=== PATIENT | female | born 1930 | race Caucasian/White ===

== ENCOUNTER 2016-04-18 17:15 | Inpatient (IN) | payer MEDICARE, OTHER ==
[2016-04-18] VITALS (8 sets, daily range): BP systolic 83–143; BP diastolic 46–61; PULSE 69–147; RESP 12–25; Ht 162.6 cm; Wt 82.8 kg
[~2016-04-18] VITALS: Ht 162.6 cm; Wt 82.8 kg
[~2016-04-18 17:15] MED LIST: ASPI-664 PO; ATOR20TA38 PO; CARV6.25 PO; CELE200C PO; CLOP75TA27 PO; DEXL60CA2 PO; DIGO125T PO; EZET10TA3 PO; LIPA1CAP6 PO; MECL-77 PO; MEMA28CA PO; METF-382 PO; OLME1TAB20 PO; ROSU40TA PO; SITA50TA2 PO; VALS80TA2 PO; ZOLP10TA PO
[2016-04-18] MEDS ORDERED: MAGNESIUM HYDROXIDE 30ML CUP PO PRN (18:00)
[2016-04-18] MEDS ORDERED: LOPERAMIDE 2 MG CAP PO PRN (18:00)
[2016-04-18] MEDS ORDERED: BISACODYL 10 MG SUPP PR PRN (18:00)
[2016-04-18] MEDS ORDERED: LORAZEPAM 1 MG TAB PO PRN (18:00)
[2016-04-18] MEDS ORDERED: LACTULOSE 30ML CUP PO PRN (18:00)
[2016-04-18] MEDS ORDERED: GLUCOSE GEL 15 GRAM TUBE BUCCAL PRN (18:30)
[2016-04-18] MEDS ORDERED: DEXTROSE 50% 50 ML SYRINGE IV PRN ×2 (18:30)
[2016-04-18] MEDS ORDERED: GLUCAGON 1 MG INJ IM PRN (18:30)
[2016-04-18] MEDS ORDERED: GLUCOSE GEL 15 GRAM TUBE PO PRN ×2 (18:30)
--- NOTE | 2016-04-18 19:54 | PDOCDIS ---
Discharge Instructions CONDITION Patient Condition: Serious HOME CARE INSTRUCTIONS: Diet Instructions: Reduced Sodium ACTIVITY: Activity Restrictions: Rest between Activity Bathing Restrictions: Sponge Bath FOLLOW UP/APPOINTMENTS Appointments Admit to ICU. REFERRALS Other Referrals . SCHOOL/WORK RELEASE May return to School/Work on: Apr 19, 2016 May return to School/Work with: no relevant meaning in a comp. statement. No school. VANI DALAL MD Apr 18, 2016 19:54
[2016-04-18] MEDS ORDERED: ZOLP5TAB PO (20:12)
[2016-04-18] MEDS ORDERED: LACT20SO12 PO (20:12)
[2016-04-18] MEDS ORDERED: LINA5TAB PO (20:12)
[2016-04-18] MEDS ORDERED: ATOR40TA68 PO (20:12)
[2016-04-18] MEDS ORDERED: LOSA50TA2 PO (20:12)
[2016-04-18] MEDS ORDERED: UDMOM PO (20:12)
[2016-04-18] MEDS ORDERED: METF500T PO (20:12)
[2016-04-18] MEDS ORDERED: HYD25 PO (20:12)
[2016-04-18] MEDS ORDERED: LORA-441 PO (20:12)
[2016-04-18] MEDS ORDERED: LORA1TAB PO (20:12)
[2016-04-18] MEDS ORDERED: GLUC1VIA3 IM (20:12)
[2016-04-18] MEDS ORDERED: Accucheck XX (20:12)
[2016-04-18] MEDS ORDERED: CARV12.579 PO (20:12)
[2016-04-18] MEDS ORDERED: DEXT37.54 BUCCAL (20:12)
[2016-04-18] MEDS ORDERED: Nursing Note XX (20:12)
[2016-04-18] MEDS ORDERED: DEXT37.54 PO (20:12)
[2016-04-18] MEDS ORDERED: SOLI5TAB5 PO (20:12)
[2016-04-18] MEDS ORDERED: CLON-379 PO (20:12)
[2016-04-18] MEDS ORDERED: [UNRECOGNIZED DRUG - CODE] IM (20:12)
[2016-04-18] MEDS ORDERED: DULR PR (20:12)
[2016-04-18] MEDS ORDERED: MEMA10TA20 PO (20:12)
[2016-04-18] MEDS ORDERED: APR50 PO (20:12)
[2016-04-18] MEDS ORDERED: NOVO3I SC (20:12)
[2016-04-18] MEDS ORDERED: AMLO-147 NGT (20:12)
[2016-04-18] MEDS ORDERED: PANT40TA4 PO (20:12)
[2016-04-18] MEDS ORDERED: ACET325T33 PO (20:12)
[2016-04-18] MEDS ORDERED: CATTTS1 TRANSDERM (20:12)
[2016-04-18] MEDS ORDERED: DEXT50DI9 IV (20:12)
[2016-04-18] MEDS ORDERED: CHOL20003 PO (20:12)
[2016-04-18] MEDS ORDERED: DONE10TA33 PO (20:12)
[2016-04-18] MEDS ORDERED: MECL-77 PO (20:12)
[2016-04-18] MEDS ORDERED: IMO2 PO (20:12)
--- NOTE | 2016-04-18 20:27 | HP ---
Date/Time of Note Date/Time of Note DATE: 04/18/16 TIME: 20:14 Assessment/Plan VTE Prophylaxis VTE Prophylaxis Intervention: ambulation, anti-embolic stocking VTE Contraindication Reason: peripheral vascular disease Lines/Catheters IV Catheter Type (from Nrsg): Saline Lock Central line still needed: No Urinary Cath still in place: No Assessment/Plan Chief Complaint/Hosp Course 1.Paroxismal a.fibrillation with rapid ventricular rate 2.HTN out of control- become hypotensive during a.fib. attack. 3.DM type 2 4.Dyslipidemia 5.AD - getting worse, with anxiety d/o 6.S/P hemicolectomy with appendectomy by HX due to of colonic cancer 7.Progressive weight loss (more than 40 lb in less than a year) 8.VDV;DVT? HX? 9.S/P cataractectomy bilateral 10.S/P falls and recent head trauma. 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 12.S/P PSVT converted to sinus rhythm by adenosine in [facility] [place]? 13.Hx of recurrent uti's 14.LEW and osteoporosis 15.Redness of t he skin of calcaneal areas. 16.Diarrhea due to of short bowel with other causes 17.Severe muscular weakness 18.Severe hearing impairment 19.Anemia of chronic disease 20.Low magnesium levels on and off 21.Low Vit "D" level 22.LVH with diastolic dysfunction. 23.Multiple bruises of extremities 24.Osteoporosis 25. S/P Fx of the right hip; s/p orif. 26.PAD 27.CVA with right weakness Problems: Assessment/Plan Will sta in ICU for 1 day at least and after full stabilization transfer to monitor bed. Cont'd Hospitalization Reason: unstable and needs further in housse w/u. HPI/ROS Admit Date/Time Admit Date/Time Dr. Dalal is dictating H&P. Chief complaint: shortness of breath and weakness. The patient was in rehabilitation unit when suddenly her blood pressure dropped. She felt dizzy. Rapid response team helped the patient. EKG had shown atrial fibrillation with rapid ventricular rate. Heart rate now is with occasional PVc 's. Transfer to ICU. Dr. Francisco was called. In the past the patient had episodes of supraventricular tachycardia. There is no record for her having ATRIAL fibrillation. Probably this is of onset .Apr 18, 2016 at 17:15 ROS Subjective hx not possible: pt critical Constitutional: diaphoresis, disoriented, nausea, poor po, weight change Eyes: visual change ENT: congestion, sore throat, No bleeding, No discharge, No dysphagia, No no complaints, No other, No pain Respiratory: shortness of breath, No cough, No no complaints, No other, No pain, No pleuritic pain, No sputum, No wheezing Cardiovascular: palpitations, No chest pain, No edema, No lightheadedness, No no complaints, No orthopenea , No other, No paroxysmal nocturnal dyspnea Gastrointestinal: diarrhea, nausea, passing stool, No blood, No constipation, No decreased appetite, No flatus, No no complaints , No other, No pain, No vomiting Genitourinary: flank pain, No bleeding, No discharge, No dysuria, No hematuria, No no complaints, No other Musculoskeletal: bone/joint pain, neck pain, No back pain, No no complaints, No other, No restricted range of motion, No swelling Skin: No bruising, No erythema, No laceration, No no complaints, No other, No pruritis, No rash, No skin lesions Neurologic: confusion, dizziness, No focal-weakness, No headache, No no complaints, No other, No seizure, No syncope Endocrine: dry skin Lymphatic: No adenopathy, No lymphadema, No no complaints, No other, No tender nodes Psychological: anxiety, confusion, other (impared memory.) Immunologic: pruritis PMH/Family/Social Past Medical History Medical History: cancer, congestive heart failure, diabetes, GERD, high cholesterol, hypertension, urinary tract infection Past Surgical History Past Surgical Hx: angioplasty, appendectomy, other Family History Significant Family History: heart disease, hypertension Social History Alcohol Use: none Smoking Status: Never smoker Drug Use: none Exam/Review of Systems Vital Signs Vitals Vital Signs Date Time Temp Pulse Resp B/P Pulse Ox O2 Delivery O2 Flow Rate FiO2 04/18/16 18:00 87 19 127/58 96 Nasal Cannula 3.0 04/18/16 17:15 98.0 Exam Constitutional: alert, distress, other (dioriented in time and place.), well developed, No frail, No non-verbal, No oriented Psych: anxiety, confusion, depression, No nl mood/affect, No no complaints, No other, No suicidal Eyes: EOMI, PERRL, nl lids, other (erythematouse conjunctivas.), No fundi, disc, No icteric, No nl conjunctiva, No nl sclera ENMT: nl external ears & nose, nl nasal mucosa & septum, No intubated, No mucosa pink and moist, No nl lips & teeth, No other, No tympanic membranes Neck: bruits, nuchal rigidity, No jvd, No masses, No non-tender, No other, No supple, No thyromegaly Respiratory: clear to auscultation, congested cough, diminished breath sounds, No crackles/rales, No intercostal retraction, No labored breathing, No normal air movement, No other, No respirations, No tactile fremitus, No wheezing Cardiovascular: bruits, other (vdv.), systolic murmur, No S3, No S4, No diastolic murmur, No edema, No gallop, No irregular rhythm, No jugular venous distention (JVD), No murmurs/extra sounds, No nl pulses, No regular rate and rhythm, No rub Gastrointestinal: bowel sounds, soft, No ascites, No distended, No firm, No hepatomegaly, No mass, No nl liver, spleen, No non-tender, No other, No rebound or guarding, No splenomegaly, No surgical scars, No tender Musculoskeletal: joint tenderness, muscle tone, muscle weakness Extremities: tenderness Neurological: PAPER TWISTER TENDER II-XII intact, numbness Skin: diaphoresis, rash or lesions Medications Medications Current Medications Diagnostic Test (Pha) (Accucheck) XX ; Start 04/19/16 at 02:00 Acetaminophen (Tylenol Tab) 325 mg Q4H PRN PO PAIN AND OR ELEVATED TEMP; Start 04/18/16 at 18:00 Amlodipine Besylate (Norvasc) 10 mg HS NGT ; Start 04/18/16 at 21:00 Aspirin (Aspirin) 81 mg DAILY PO ; Start 04/19/16 at 09:00 Atorvastatin Calcium (Lipitor) 40 mg HS PO ; Start 04/18/16 at 21:00 Bisacodyl (Dulcolax Supp) 10 mg DAILY PRN [place] CONSTIPATION; Start 04/18/16 at 18:00 Carvedilol (Coreg) 12.5 mg BID PO ; Start 04/18/16 at 21:00 Celecoxib (Celebrex) 200 mg DAILY PO ; Start 04/19/16 at 09:00 Cholecalciferol (Vitamin D) 2,000 unit DAILY PO ; Start 04/19/16 at 09:00 Clopidogrel Bisulfate (plaVIX) 75 mg DAILY PO ; Start 04/19/16 at 09:00 Cyanocobalamin (Vitamin B12 Inj) 1,000 mcg DAILY IM ; Start 04/19/16 at 09:00; Stop 04/21/16 at 11:00 Donepezil HCl (Aricept) 10 mg DAILY PO ; Start 04/19/16 at 09:00 Hydralazine HCl (Apresoline) 50 mg Q8 PO ; Start 04/18/16 at 22:00 Hydrochlorothiazide (Hydrochlorothiazide) 25 mg DAILY PO ; Start 04/19/16 at 09 :00 Lactulose (Enulose) 20 gm DAILY PRN PO CONSTIPATION; Start 04/18/16 at 18:00 Linagliptin (Tradjenta) 5 mg DAILY PO ; Start 04/19/16 at 09:00 Loperamide HCl (Imodium Cap) 2 mg QID PRN PO DIARRHEA; Start 04/18/16 at 18:00 Lorazepam (Ativan) 0.5 mg HS PO ; Start 04/18/16 at 21:00 Lorazepam (Ativan) 1 mg Q12 PRN PO AGITATION/ANXIETY; Start 04/18/16 at 18:00 Losartan Potassium (Cozaar) 100 mg DAILY PO ; Start 04/19/16 at 09:00 Magnesium Hydroxide 30 ml 30 ml DAILY PRN PO CONSTIPATION; Start 04/18/16 at 18:00 Magnesium Sulfate (Magnesium Sulfate 2 Gm/50 ml) 50 ml @ 25 mls/hr ONCE IVPB ; Start 04/19/16 at 09:00; Stop 04/20/16 at 11:00 Meclizine HCl (Antivert) 25 mg DAILY PO ; Start 04/19/16 at 09:00 Memantine (Namenda) 10 mg BID PO ; Start 04/18/16 at 21:00 Pantoprazole (Protonix Tab) 40 mg DAILY@06 PO ; Start 04/19/16 at 06:00 Sertraline HCl 25 mg 25 mg DAILY PO ; Start 04/19/16 at 09:00 Ferric Sodium Gluconate Complex/ Sodium Chloride (Ferrlecit/NS) 110 ml @ 110 mls/hr Q24H IVPB ; Start 04/19/16 at 09:00; Stop 04/21/16 at 09:59 Solifenacin (Vesicare) 5 mg DAILY PO ; Start 04/19/16 at 09:00 Zolpidem Tartrate (Ambien) 5 mg HS PO ; Start 04/18/16 at 21:00 Miscellaneous Information 1 ea NOTE XX ; Start 04/18/16 at 18:30 Glucose (Glutose) 15 gm Q15M PRN PO DECREASED GLUCOSE; Start 04/18/16 at 18:30 Glucose (Glutose) 22.5 gm Q15M PRN PO DECREASED GLUCOSE; Start 04/18/16 at 18: 30 Dextrose (D50w Syringe) 25 ml Q15M PRN IV DECREASED GLUCOSE; Start 04/18/16 at 18:30 Dextrose (D50w Syringe) 50 ml Q15M PRN IV DECREASED GLUCOSE; Start 04/18/16 at 18:30 Glucagon (Glucagen) 1 mg Q15M PRN IM DECREASED GLUCOSE; Start 04/18/16 at 18: 30 Glucose (Glutose) 15 gm Q15M PRN BUCCAL DECREASED GLUCOSE; Start 04/18/16 at 18:30 Clonidine HCl (Catapres-Tts 1 Patch) 1 patch Q7D TRANSDERM ; Start 04/22/16 at 09:00 Clonidine (Catapres) 0.1 mg Q8H PRN PO ELEVATED SYSTOLIC BP>150; Start at 18:30 VANI DALAL MD Apr 18, 2016 20:24
[2016-04-18] MEDS: AMLODIPINE 10 MG TAB NGT SCH (21:00)
[2016-04-18] MEDS: ATORVASTATIN 40 MG TAB PO SCH (21:44)
[2016-04-18] MEDS: LORAZEPAM 0.5 MG TAB PO SCH (21:44)
[2016-04-18] MEDS: MEMANTINE 10 MG TAB PO SCH (21:44)
[2016-04-18] MEDS: ZOLPIDEM 5 MG TAB PO SCH (21:44)
[2016-04-18] MEDS: INSULIN ASPART [NOVOLOG] 3 ML PEN SC SCH (21:46)
[2016-04-19] VITALS (22 sets, daily range): BP systolic 96–163; BP diastolic 46–94; PULSE 58–83; RESP 9–21
[2016-04-19] MEDS ORDERED: ACCUCHECK XX SCH (02:00)
[2016-04-19] MEDS: ACCUCHECK XX SCH (02:06)
[2016-04-19] MEDS: PANTOPRAZOLE (EC) 40 MG TAB PO SCH (05:21)
[2016-04-19] MEDS: INSULIN ASPART [NOVOLOG] 3 ML PEN SC SCH ×4 (07:35→22:19)
[2016-04-19] MEDS: CELECOXIB 200 MG CAP PO SCH (08:59)
[2016-04-19] MEDS: CHOLECALCIFEROL 2,000 UNIT CAP PO SCH (08:59)
[2016-04-19] MEDS: CLOPIDOGREL 75 MG TAB PO SCH (08:59)
[2016-04-19] MEDS: DONEPEZIL 10 MG TAB PO SCH (08:59)
[2016-04-19] MEDS: MECLIZINE 25 MG TAB PO SCH (08:59)
[2016-04-19] MEDS: MEMANTINE 10 MG TAB PO SCH ×2 (08:59→22:15)
[2016-04-19] MEDS: metFORMIN 500 MG TAB PO SCH ×2 (09:00→17:35)
[2016-04-19] MEDS: LOSARTAN 50 MG TAB PO SCH ×2 (09:00→09:02)
[2016-04-19] MEDS: ASPIRIN 81 MG TAB PO SCH (09:00)
[2016-04-19] MEDS ORDERED: MAGNESIUM SULFATE 2 GM/50 ML 50 ML IVPB SCH (09:00)
[2016-04-19] MEDS: LINAGLIPTIN 5 MG TABLET PO SCH (09:00)
[2016-04-19] MEDS: CYANOCOBALAMIN 1000 MCG INJ IM SCH (09:01)
[2016-04-19] MEDS: HYDROCHLOROTHIAZIDE 25 MG TAB PO SCH (09:01)
[2016-04-19] MEDS: SOD FERRIC GLUC COMPLX 125 MG in SOD CHLORIDE 0.9% 100 ML IVPB SCH (09:06)
[2016-04-19] MEDS: SOLIFENACIN 5 MG TAB PO SCH (11:17)
[2016-04-19] MEDS: SERTRALINE 50 MG TAB PO SCH (11:20)
--- NOTE | 2016-04-19 14:38 | PN ---
Date/Time of Note Date/Time of Note DATE: 04/19/16 TIME: 14:38 Assessment/Plan VTE Prophylaxis VTE Prophylaxis Intervention: ambulation, anti-embolic stocking VTE Contraindication Reason: peripheral vascular disease Lines/Catheters IV Catheter Type (from Nrsg): Saline Lock Central line still needed: No Urinary Cath still in place: Yes Reason Cath still needed: urinary retention Assessment/Plan Chief Complaint/Hosp Course 1.Paroxismal a.fibrillation with rapid ventricular rate 2.HTN out of control- become hypotensive during a.fib. attack. 3.DM type 2 4.Dyslipidemia 5.AD - getting worse, with anxiety d/o 6.S/P hemicolectomy with appendectomy by HX due to of colonic cancer 7.Progressive weight loss (more than 40 lb in less than a year) 8.VDV;DVT? HX? 9.S/P cataractectomy bilateral 10.S/P falls and recent head trauma. 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 12.S/P PSVT converted to sinus rhythm [place] [facility] [place] 13.Hx of recurrent uti's 14.LEW and osteoporosis 15.Redness of t he skin of calcaneal areas. 16.Diarrhea due to of short bowel with other causes 17.Severe muscular weakness 18.Severe hearing impairment 19.Anemia of chronic disease 20.Low magnesium levels on and off 21.Low Vit "D" level 22.LVH with diastolic dysfunction. 23.Multiple bruises of extremities 24.Osteoporosis 25. S/P Fx of the right hip; s/p orif. 26.PAD 27.CVA with right weakness Problems: Subjective 24 Hr Interval Summary Free Text/Dictation Weakness with SOB. Exam/Review of Systems Vital Signs Vitals Vital Signs Date Time Temp Pulse Resp B/P Pulse Ox O2 Delivery O2 Flow Rate FiO2 04/19/16 13:00 66 18 127/55 94 04/19/16 12:00 98.4 04/19/16 08:00 Nasal Cannula 2.0 Intake and Output 04/18/16 04/18/16 04/19/16 14:59 22:59 06:59 Intake Total 400 ml Output Total 1200 ml Balance -800 ml Results Results 24 hrs Laboratory Tests Test 04/19/16 05:05 04/19/16 08:10 12/24/16 11:54 Bedside Glucose 151 130 151 Medications Medications Current Medications Diagnostic Test (Pha) (Accucheck) 1 ea 02 XX Last administered on 04/19/16at 02 :06; Admin Dose 1 EA; Start 04/19/16 at 02:00 Acetaminophen (Tylenol Tab) 325 mg Q4H PRN PO PAIN AND OR ELEVATED TEMP; Start 04/18/16 at 18:00 Amlodipine Besylate (Norvasc) 10 mg HS NGT ; Start 04/18/16 at 21:00 Aspirin (Aspirin) 81 mg DAILY PO Last administered on 04/19/16at 09:00; Admin Dose 81 MG; Start 04/19/16 at 09:00 Atorvastatin Calcium (Lipitor) 40 mg HS PO Last administered on 04/18/16 21: 44; Admin Dose 40 MG; Start 04/18/16 at 21:00 Bisacodyl (Dulcolax Supp) 10 mg DAILY PRN [place] CONSTIPATION; Start 04/18/16 at 18:00 Carvedilol (Coreg) 12.5 mg BID PO Last administered on 04/19/16 09:01; Admin Dose 12.5 MG; Start 04/18/16 at 21:00 Celecoxib (Celebrex) 200 mg DAILY PO Last administered on 04/19/16 08:59; Admin Dose 200 MG; Start 04/19/16 at 09:00 Cholecalciferol (Vitamin D) 2,000 unit DAILY PO Last administered on 08:59; Admin Dose 2,000 UNIT; Start 04/19/16 at 09:00 Clopidogrel Bisulfate (plaVIX) 75 mg DAILY PO Last administered on 04/19/16 08:59; Admin Dose 75 MG; Start 04/19/16 at 09:00 Cyanocobalamin (Vitamin B12 Inj) 1,000 mcg DAILY IM Last administered on 09:01; Admin Dose 1,000 MCG; Start 04/19/16 at 09:00; Stop 04/21/16 at 11 :00 Donepezil HCl (Aricept) 10 mg DAILY PO Last administered on 04/19/16 08:59; Admin Dose 10 MG; Start 04/19/16 at 09:00 Hydralazine HCl (Apresoline) 50 mg Q8 PO Last administered on 04/19/16 05:21 ; Admin Dose 50 MG; Start 04/18/16 at 22:00 Hydrochlorothiazide (Hydrochlorothiazide) 25 mg DAILY PO Last administered on 04/19/16at 09:01; Admin Dose 25 MG; Start 04/19/16 at 09:00 Lactulose (Enulose) 20 gm DAILY PRN PO CONSTIPATION; Start 04/18/16 at 18:00 Linagliptin (Tradjenta) 5 mg DAILY PO Last administered on 04/19/16at 09:00; Admin Dose 5 MG; Start 04/19/16 at 09:00 Loperamide HCl (Imodium Cap) 2 mg QID PRN PO DIARRHEA; Start 04/18/16 at 18:00 Lorazepam (Ativan) 0.5 mg HS PO Last administered on 04/18/16at 21:44; Admin Dose 0.5 MG; Start 04/18/16 at 21:00 Lorazepam (Ativan) 1 mg Q12 PRN PO AGITATION/ANXIETY; Start 04/18/16 at 18:00 Losartan Potassium (Cozaar) 100 mg DAILY PO ; Start 04/19/16 at 09:00 Magnesium Hydroxide 30 ml 30 ml DAILY PRN PO CONSTIPATION; Start 04/18/16 at 18:00 Magnesium Sulfate (Magnesium Sulfate 2 Gm/50 ml) 50 ml @ 25 mls/hr ONCE IVPB Last administered on 04/19/16at 11:17; Admin Dose 25 MLS/HR; Start 04/19/16 at 09:00; Stop 04/20/16 at 11:00 Meclizine HCl (Antivert) 25 mg DAILY PO Last administered on 04/19/16at 08:59; Admin Dose 25 MG; Start 04/19/16 at 09:00 Memantine (Namenda) 10 mg BID PO Last administered on 04/19/16at 08:59; Admin Dose 10 MG; Start 04/18/16 at 21:00 Pantoprazole (Protonix Tab) 40 mg DAILY@06 PO Last administered on 04/19/16at 05:21; Admin Dose 40 MG; Start 04/19/16 at 06:00 Sertraline HCl 25 mg 25 mg DAILY PO Last administered on 04/19/16at 11:20; Admin Dose 25 MG; Start 04/19/16 at 09:00 Ferric Sodium Gluconate Complex/ Sodium Chloride (Ferrlecit/NS) 110 ml @ 110 mls/hr Q24H IVPB Last administered on 04/19/16at 09:06; Admin Dose 110 MLS/HR; Start 04/19/16 at 09:00; Stop 04/21/16 at 09:59 Solifenacin (Vesicare) 5 mg DAILY PO Last administered on 04/19/16at 11:17; Admin Dose 5 MG; Start 04/19/16 at 09:00 Zolpidem Tartrate (Ambien) 5 mg HS PO Last administered on 04/18/16at 21:44; Admin Dose 5 MG; Start 04/18/16 at 21:00 Miscellaneous Information 1 ea NOTE XX ; Start 04/18/16 at 18:30 Glucose (Glutose) 15 gm Q15M PRN PO DECREASED GLUCOSE; Start 04/18/16 at 18:30 Glucose (Glutose) 22.5 gm Q15M PRN PO DECREASED GLUCOSE; Start 04/18/16 at 18: 30 Dextrose (D50w Syringe) 25 ml Q15M PRN IV DECREASED GLUCOSE; Start 04/18/16 at 18:30 Dextrose (D50w Syringe) 50 ml Q15M PRN IV DECREASED GLUCOSE; Start 04/18/16 at 18:30 Glucagon (Glucagen) 1 mg Q15M PRN IM DECREASED GLUCOSE; Start 04/18/16 at 18: 30 Glucose (Glutose) 15 gm Q15M PRN BUCCAL DECREASED GLUCOSE; Start 04/18/16 at 18:30 Clonidine HCl (Catapres-Tts 1 Patch) 1 patch Q7D TRANSDERM ; Start 04/22/16 at 09:00 Clonidine (Catapres) 0.1 mg Q8H PRN PO ELEVATED SYSTOLIC BP>150; Start at 18:30 VANI DALAL MD Apr 19, 2016 14:38
[2016-04-19] MEDS: ZOLPIDEM 5 MG TAB PO SCH (21:26)
[2016-04-19] MEDS: LORAZEPAM 0.5 MG TAB PO SCH (21:27)
[2016-04-19] MEDS: ATORVASTATIN 40 MG TAB PO SCH (21:27)
[2016-04-19] MEDS: AMLODIPINE 10 MG TAB NGT SCH (21:29)
[2016-04-19] MEDS: ACETAMINOPHEN 325 MG TAB PO PRN (22:49)
[2016-04-20] VITALS (12 sets, daily range): BP systolic 119–144; BP diastolic 58–66; PULSE 66–82; RESP 16–20
[2016-04-20] MEDS: ACCUCHECK XX SCH (01:27)
--- NOTE | 2016-04-20 03:25 | CONS ---
DATE OF ADMISSION: 04/18/2016 DATE OF CONSULTATION: REFERRING PHYSICIAN: Dr. Panchito Hernandez Thank you, Dr. Flanagan, for asking me to see the patient with you. HISTORY OF PRESENT ILLNESS: The patient is an 85-year-old lady with a past medical history of conge stive heart failure, diabetes, hyperpotassemia, hypertension, urinary tract infection, diabetes, ang ioplasty, appendectomy. The patient was admitted with chief complaint of shortness of breath, weakn ess increasing in her left side with lack of communication with atrial fibrillation with rapid respo nse for which the patient was admitted to intensive care unit, seen by Dr. Francisco, in which I got a call about her by Dr. Flanagan for more evaluation and treatment. MEDICATIONS: The patient's current medications which include 1. Clonidine patch every 7 days as needed. 2. Aspirin 81 mg once a day. 3. Celebrex 200 mg once a day. 4. Vitamin D as needed. 5. Plavix 75 mg once a day. 6. Aricept 10 mg once a day. 7. Hydrochlorothiazide 25 mg once a day. 8. Cozaar 100 mg once a day. 9. Antivert 25 mg once a day. 10. Zoloft 25 mg once a day. 11. Glucophage 1000 twice a day as needed. 12. Protonix 40 mg once a day as needed. 13. Insulin sliding scale. 14. Norvasc 10 mg once a day. 15. Lipitor 40 mg once a day. 16. Coreg 12.5 mg once a day. 17. Lorazepam 0.5 mg once a day. 14. Namenda 10 mg twice a day. 15. Ambien 5 mg once at night. 16. Dulcolax 10 mg as needed. 17. Lactulose 20 mg as needed. 18. Magnesium hydroxide 30 mg as needed. PAST MEDICAL HISTORY: As above, which includes hypertension, atrial fibrillation, congestive heart failure, diabetes, dyslipidemia, anemia memory disorder, Alzheimer disease, anxiety secondary to the Alzheimer, hearing difficulty. PHYSICAL EXAMINATION: GENERAL: On exam today, the patient is alert, awake, oriented, following simple commands. CRANIAL NERVES: Cranial nerve II: Pupils equal on both sides, reactive to light. Cranial nerves I II, IV, and : Extraocular muscles intact. No nystagmus. Cranial nerve V: Equal sensation to fa ce. Cranial nerve VII: Symmetrical face. Cranial nerve VIII: Equal hearing bilaterally. Cranial nerves IX and X: Elevates palate. Cranial nerves XI: Elevates shoulder 5/5. Cranial nerve XII: Straight tongue. MOTOR: Decreased right hand commercial agent. Left side scored 3 at the lower extremity, 4 at the upper extrem ity. Sensation decreased on the right side for light touch and temperature. COORDINATION: Xaxott-ls-[id number] test intact. HEART: Regular rate and rhythm. LUNGS: Equal breath sounds. ABDOMEN: Soft, relaxed, nondistended. No tenderness. ASSESSMENT AND PLAN 1. The patient is an 85-year-old with left-sided weakness. We will follow up the patient with phys ical therapy and rehabilitation. 2. of possibility of underlying transient ischemic versus cerebrovascular accident. I am nura ely to add for her Plavix 75 mg once a day besides the aspirin for stroke prophylaxis because the pat ient has multiple risk factors including hypertension, diabetes, and dyslipidemia. The patient curr ently is on sinus rhythm, so no need for anticoagulation at this point; however, we can watch her cl osely for more evaluation with echocardiogram and cardiology consult. 3. History of underlying memory disorder in the form of Alzheimer disease. We will start the patie nt on Aricept 5 mg and see how the patient responds for that and follow up the patient with mini men ricardo status exam and neuropsychological testing. 4. History of hypertension. Keep the blood pressure at the level of 140/90 or less to avoid any __ ___ for stroke. 5. History of diabetes. Follow up the patient's hemoglobin A1c. Follow up the patient with slidin g scale insulin. Again, thank you for asking me to see the patient with you. Dictated By: ASHLEY MOORE/BANDAR Conf#: [id number] DID#: [id number]
[2016-04-20] MEDS: PANTOPRAZOLE (EC) 40 MG TAB PO SCH (05:52)
[2016-04-20] MEDS: INSULIN ASPART [NOVOLOG] 3 ML PEN SC SCH ×4 (08:00→20:41)
[2016-04-20] MEDS: CLOPIDOGREL 75 MG TAB PO SCH (08:55)
[2016-04-20] MEDS: CELECOXIB 200 MG CAP PO SCH (08:55)
[2016-04-20] MEDS: SERTRALINE 50 MG TAB PO SCH (08:55)
[2016-04-20] MEDS: ASPIRIN 81 MG TAB PO SCH (08:56)
[2016-04-20] MEDS: HYDROCHLOROTHIAZIDE 25 MG TAB PO SCH (08:56)
[2016-04-20] MEDS: metFORMIN 500 MG TAB PO SCH ×2 (08:56→17:00)
[2016-04-20] MEDS: SOLIFENACIN 5 MG TAB PO SCH (08:57)
[2016-04-20] MEDS: SOD FERRIC GLUC COMPLX 125 MG in SOD CHLORIDE 0.9% 100 ML IVPB SCH (08:57)
[2016-04-20] MEDS: MEMANTINE 10 MG TAB PO SCH ×2 (08:57→20:42)
[2016-04-20] MEDS ORDERED: CLOPIDOGREL 75 MG TAB PO SCH ×2 (09:00)
[2016-04-20] MEDS: CHOLECALCIFEROL 2,000 UNIT CAP PO SCH (09:59)
[2016-04-20] MEDS: DONEPEZIL 10 MG TAB PO SCH (09:59)
[2016-04-20] MEDS: LINAGLIPTIN 5 MG TABLET PO SCH (09:59)
[2016-04-20] MEDS: MECLIZINE 25 MG TAB PO SCH (09:59)
[2016-04-20] MEDS: CYANOCOBALAMIN 1000 MCG INJ IM SCH (09:59)
--- NOTE | 2016-04-20 10:19 | RADRPT ---
PROCEDURE: MRI Brain without contrast. CLINICAL INDICATION: CVA. TECHNIQUE: An MRI of the brain was performed utilizing the following sequences: Sagittal and axial T1 weighted, axial T2 weighted, axial diffusion weighted with ADC mapping, coronal GRE, and axial F LAIR. COMPARISON: None available. FINDINGS: There are foci of restricted diffusion in the left centrum semiovale and connor radiata consistent w ith acute/recent infarcts. No hypointense signal abnormalities are seen on the GRE images to suggest the presence of blood degr adation products. There is no evidence of intracranial hemorrhage, mass effect, or midline shift. N o extra-axial fluid collections are seen. The ventricles and sulci are mildly to moderately enlarged indicative of volume loss. There are moderate scattered foci of T2 FLAIR hyperintensity in the periventricular, deep, and subco rtical white matter, which are nonspecific in etiology but likely reflect chronic small vessel ische emmy changes. Small T2 hyperintense foci are noted in bilateral lentiform nuclei which likely repre sent dilated perivascular spaces versus old lacunar infarcts. Small lacunar infarcts are noted in bi lateral central semiovale and right parietal periventricular white matter. No abnormal intracranial vascular flow void is noted. The visualized paranasal sinuses demonstrate s cattered mild mucosal thickening. There are mucous retention cysts in bilateral maxillary sinuses. There is thinning of bilateral lens indicative of prior lens replacement. IMPRESSION: 1. Foci of acute/recent infarcts in the left centrum semiovale and connor radiata. No hemorrhagic t ransformation. 2. Moderate chronic small vessel ischemic changes. 3. Bilateral lentiform nuclei which likely represent dilated perivascular spaces versus old lacunar infarcts. Small lacunar infarcts in bilateral central semiovale and right parietal periventricular white matter. 4. Mild to moderate generalized cerebral and cerebellar volume loss. Critical result,A call report was made and above findings were discussed and acknowledged by patient 's nurse NAYELY King on 04/20/2016 at 10:10 AM to relay to Dr. Fu. RPTAT: HH .Lizet Gordon MD, MD Date Time Electronically viewed and signed by .Lizet Gordon MD, on 04/20/2016 10:19 .N/
--- NOTE | 2016-04-20 12:03 | RADRPT ---
Vent Rate: 74 bpm RR Interval: 0 msec IA Interval: 152 msec QRS Duration: 116 msec QT Interval: 416 msec QTC Interval: 461 msec P-R-T [place]: 59 - 16 - 124 degrees Normal sinus rhythm Incomplete left bundle branch block ST amp; T wave abnormality, consider lateral ischemia Abnormal ECG Electronically Signed By: Danny Duarte [id number]
--- NOTE | 2016-04-20 13:07 | CONS ---
Date/Time of Note Date/Time of Note DATE: 04/20/16 TIME: 13:02 Assessment/Plan Assessment/Plan Chief Complaint/Hosp Course Acute stroke Atrial fib LVH Hypertension Hyperlipidemia The pt will need to stop the Plavix and start Eliquis 2.5mg po bid and continue the Aspirin. Problems: Additional Assessment/Plan as mentioned above Will stop the plavix and start eliquis and cont ASA Will need to have daily physical therapy OK to transfer to rehab today. Consultation Date/Type/Reason Admit Date/Time Dr. Flanagan is dictating H&P. Chief complaint: shortness of breath and weakness. The patient was in rehabilitation unit when suddenly her blood pressure dropped. She felt dizzy. Rapid response team helped the patient. EKG had shown atrial fibrillation with rapid ventricular rate. Heart rate now is with occasional PVc 's. Transfer to ICU. Dr. Francisco was called. In the past the patient had episodes of supraventricular tachycardia. There is no record for her having ATRIAL fibrillation. Probably this is of onset .Apr 18, 2016 at 17:15 Reason for Consultation atrial fib and pvc's Hx of Present Illness This is a 85 F with multiple PMH, presented with an acute stroke. The pt has a history of parox Atrial Fib. Currently in Sinus with PVCs. The pt is moving all extremities I spoke with Dr. Flanagan Eyes: visual change ENT: congestion, sore throat, No bleeding, No discharge, No dysphagia, No no complaints, No other, No pain Respiratory: shortness of breath, No cough, No no complaints, No other, No pain, No pleuritic pain, No sputum, No wheezing Cardiovascular: palpitations, No chest pain, No edema, No lightheadedness, No no complaints, No orthopenea , No other, No paroxysmal nocturnal dyspnea Gastrointestinal: diarrhea, nausea, passing stool, No blood, No constipation, No decreased appetite, No flatus, No no complaints , No other, No pain, No vomiting Genitourinary: flank pain, No bleeding, No discharge, No dysuria, No hematuria, No no complaints, No other Musculoskeletal: bone/joint pain, neck pain, No back pain, No no complaints, No other, No restricted range of motion, No swelling Skin: No bruising, No erythema, No laceration, No no complaints, No other, No pruritis, No rash, No skin lesions Neurologic: confusion, dizziness, No focal-weakness, No headache, No no complaints, No other, No seizure, No syncope Lymphatic: No adenopathy, No lymphadema, No no complaints, No other, No tender nodes Psychological: anxiety, confusion, depression, No nl mood/affect, No no complaints, No other, No suicidal Immunologic: pruritis Past Medical History Medical History: cancer, congestive heart failure, diabetes, GERD, high cholesterol, hypertension, urinary tract infection Past Surgical History Past Surgical Hx: angioplasty, appendectomy, other Social History Alcohol Use: none Smoking Status: Never smoker Drug Use: none Exam/Review of Systems Vital Signs Vitals Vital Signs Date Time Temp Pulse Resp B/P Pulse Ox O2 Delivery O2 Flow Rate FiO2 04/20/16 12:18 98.8 73 20 134/63 94 04/20/16 09:35 Nasal Cannula 2.0 Intake and Output 04/19/16 04/19/16 04/20/16 15:00 23:00 07:00 Intake Total 360 ml 220 ml 800 ml Output Total 545 ml 270 ml 1000 ml Balance -185 ml -50 ml -200 ml Exam Constitutional: alert, oriented Results Result Diagram: 04/20/16 0530 Results 24 hrs Laboratory Tests Test 04/19/16 16:52 04/19/16 21:24 04/20/16 01:27 04/20/16 05:30 Bedside Glucose 129 192 143 Creatinine 1.15 H Test 04/20/16 07:46 04/20/16 11:34 Bedside Glucose 133 188 Medications Medications Current Medications Diagnostic Test (Pha) (Accucheck) 1 ea 02 XX Last administered on 04/20/16at 01 :27; Admin Dose 1 EA; Start 04/19/16 at 02:00 Acetaminophen (Tylenol Tab) 325 mg Q4H PRN PO PAIN AND OR ELEVATED TEMP Last administered on 04/19/16at 22:49; Admin Dose 325 MG; Start 04/18/16 at 18:00 Amlodipine Besylate (Norvasc) 10 mg HS NGT Last administered on 04/19/16at 21: 29; Admin Dose 10 MG; Start 04/18/16 at 21:00 Aspirin (Aspirin) 81 mg DAILY PO Last administered on 04/20/16at 08:56; Admin Dose 81 MG; Start 04/19/16 at 09:00 Atorvastatin Calcium (Lipitor) 40 mg HS PO Last administered on 04/19/16at 21: 27; Admin Dose 40 MG; Start 04/18/16 at 21:00 Bisacodyl (Dulcolax Supp) 10 mg DAILY PRN [place] CONSTIPATION; Start 04/18/16 at 18:00 Carvedilol (Coreg) 12.5 mg BID PO Last administered on 04/20/16 08:56; Admin Dose 12.5 MG; Start 04/18/16 at 21:00 Celecoxib (Celebrex) 200 mg DAILY PO Last administered on 04/20/16 08:55; Admin Dose 200 MG; Start 04/19/16 at 09:00 Cholecalciferol (Vitamin D) 2,000 unit DAILY PO Last administered on 09:59; Admin Dose 2,000 UNIT; Start 04/19/16 at 09:00 Clopidogrel Bisulfate (plaVIX) 75 mg DAILY PO Last administered on 04/20/16 08:55; Admin Dose 75 MG; Start 04/19/16 at 09:00 Cyanocobalamin (Vitamin B12 Inj) 1,000 mcg DAILY IM Last administered on 09:59; Admin Dose 1,000 MCG; Start 04/19/16 at 09:00; Stop 04/21/16 at 11 :00 Donepezil HCl (Aricept) 10 mg DAILY PO Last administered on 04/20/16 09:59; Admin Dose 10 MG; Start 04/19/16 at 09:00 Hydralazine HCl (Apresoline) 50 mg Q8 PO Last administered on 04/20/16 05:53 ; Admin Dose 50 MG; Start 04/18/16 at 22:00 Hydrochlorothiazide (Hydrochlorothiazide) 25 mg DAILY PO Last administered on 04/20/16 08:56; Admin Dose 25 MG; Start 04/19/16 at 09:00 Lactulose (Enulose) 20 gm DAILY PRN PO CONSTIPATION; Start 04/18/16 at 18:00 Linagliptin (Tradjenta) 5 mg DAILY PO Last administered on 04/20/16 09:59; Admin Dose 5 MG; Start 04/19/16 at 09:00 Loperamide HCl (Imodium Cap) 2 mg QID PRN PO DIARRHEA; Start 04/18/16 at 18:00 Lorazepam (Ativan) 0.5 mg HS PO Last administered on 04/19/16at 21:27; Admin Dose 0.5 MG; Start 04/18/16 at 21:00 Lorazepam (Ativan) 1 mg Q12 PRN PO AGITATION/ANXIETY; Start 04/18/16 at 18:00 Losartan Potassium (Cozaar) 100 mg DAILY PO ; Start 04/19/16 at 09:00 Magnesium Hydroxide (Milk Of Mag) 30 ml DAILY PRN PO CONSTIPATION; Start 04/18 at 18:00 Meclizine HCl (Antivert) 25 mg DAILY PO Last administered on 04/20/16at 09:59; Admin Dose 25 MG; Start 04/19/16 at 09:00 Memantine (Namenda) 10 mg BID PO Last administered on 04/20/16at 08:57; Admin Dose 10 MG; Start 04/18/16 at 21:00 Pantoprazole (Protonix Tab) 40 mg DAILY@06 PO Last administered on 04/20/16at 05:52; Admin Dose 40 MG; Start 04/19/16 at 06:00 Sertraline HCl 25 mg 25 mg DAILY PO Last administered on 04/20/16at 08:55; Admin Dose 25 MG; Start 04/19/16 at 09:00 Ferric Sodium Gluconate Complex/ Sodium Chloride (Ferrlecit/NS) 110 ml @ 110 mls/hr Q24H IVPB Last administered on 04/20/16at 08:57; Admin Dose 110 MLS/HR; Start 04/19/16 at 09:00; Stop 04/21/16 at 09:59 Solifenacin (Vesicare) 5 mg DAILY PO Last administered on 04/20/16at 08:57; Admin Dose 5 MG; Start 04/19/16 at 09:00 Zolpidem Tartrate (Ambien) 5 mg HS PO Last administered on 04/19/16at 21:26; Admin Dose 5 MG; Start 04/18/16 at 21:00 Miscellaneous Information 1 ea NOTE XX ; Start 04/18/16 at 18:30 Glucose (Glutose) 15 gm Q15M PRN PO DECREASED GLUCOSE; Start 04/18/16 at 18:30 Glucose (Glutose) 22.5 gm Q15M PRN PO DECREASED GLUCOSE; Start 04/18/16 at 18: 30 Dextrose (D50w Syringe) 25 ml Q15M PRN IV DECREASED GLUCOSE; Start 04/18/16 at 18:30 Dextrose (D50w Syringe) 50 ml Q15M PRN IV DECREASED GLUCOSE; Start 04/18/16 at 18:30 Glucagon (Glucagen) 1 mg Q15M PRN IM DECREASED GLUCOSE; Start 04/18/16 at 18: 30 Glucose (Glutose) 15 gm Q15M PRN BUCCAL DECREASED GLUCOSE; Start 04/18/16 at 18:30 Clonidine HCl (Catapres-Tts 1 Patch) 1 patch Q7D TRANSDERM ; Start 04/22/16 at 09:00 Clonidine (Catapres) 0.1 mg Q8H PRN PO ELEVATED SYSTOLIC BP>150; Start at 18:30 Clopidogrel Bisulfate (plaVIX) 75 mg DAILY PO ; Start 04/20/16 at 09:00 Influenza Virus Vaccine (Fluzone) 0.5 ml ONCE ONCE IM* ; Start 04/21/16 at 09: 00; Stop 04/21/16 at 09:01 TRAVIS REEVES MD Apr 20, 2016 13:07
[2016-04-20 14:40] LABS: ALBUMIN 3.9 g/dl (3.3-4.9)
[2016-04-20 14:41] LABS: POTASSIUM 4.1 mmol/L (3.5-5.1)
[2016-04-20 14:43] LABS: ALBUMIN/GLOBULIN RATIO 1.14; BILIRUBIN,INDIRECT 0.3 mg/dl (0-1.1); BILIRUBIN,TOTAL 0.3 mg/dl (0.2-1.3); CREATININE 1.26 mg/dl (0.44-1.00); TOTAL PROTEIN 7.3 g/dl (6.1-8.1)
[2016-04-20 14:44] LABS: CALCIUM 9.1 mg/dl (8.4-10.2)
--- NOTE | 2016-04-20 17:57 | PN ---
Date/Time of Note Date/Time of Note DATE: 04/20/16 TIME: 17:53 Assessment/Plan VTE Prophylaxis VTE Prophylaxis Intervention: ambulation, anti-embolic stocking Lines/Catheters IV Catheter Type (from Nrsg): [place] [employer] Central line still needed: No Urinary Cath still in place: Yes Reason Cath still needed: urinary retention Assessment/Plan Chief Complaint/Hosp Course 1.Paroxismal a.fibrillation with rapid ventricular rate 2.HTN out of control- become hypotensive during a.fib. attack. 3.DM type 2 4.Dyslipidemia 5.AD - getting worse, with anxiety d/o 6.S/P hemicolectomy with appendectomy by HX due to of colonic cancer 7.Progressive weight loss (more than 40 lb in less than a year) 8.VDV;DVT? HX? 9.S/P cataractectomy bilateral 10.S/P falls and recent head trauma. 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 12.S/P PSVT converted to sinus rhythm by adenosine in [facility] 2012? 13.Hx of recurrent uti's 14.LEW and osteoporosis 15.Redness of t he skin of calcaneal areas. 16.Diarrhea due to of short bowel with other causes 17.Severe muscular weakness 18.Severe hearing impairment 19.Anemia of chronic disease 20.Low magnesium levels on and off 21.Low Vit "D" level 22.LVH with diastolic dysfunction. 23.Multiple bruises of extremities 24.Osteoporosis 25. S/P Fx of the right hip; s/p orif. 26.PAD 27.CVA with right weakness Problems: Cont'd Hospitalization Reason: plan:transfer to rehab. Subjective 24 Hr Interval Summary Free Text/Dictation Weakness. Unable to get up and use right leg mainly. Right upper extremity is improving.Left side is ok. Constitutional: disoriented, poor po, requiring IVF, requiring O2, No chills, No diaphoresis, No febrile, No improved, No no complaints, No other Eyes: no complaints, No discharge, No other, No pain, No redness, No visual change ENT: congestion, sore throat, No bleeding, No discharge, No dysphagia, No no complaints, No other, No pain Respiratory: cough, shortness of breath, No no complaints, No other, No pain, No pleuritic pain, No sputum, No wheezing Cardiovascular: chest pain, orthopenea, palpitations, No edema, No lightheadedness, No no complaints, No other, No paroxysmal nocturnal dyspnea Gastrointestinal: constipation, decreased appetite, pain, No blood, No diarrhea, No flatus, No nausea, No no complaints, No other, No passing stool, No vomiting Genitourinary: discharge, dysuria, No bleeding, No flank pain, No hematuria, No no complaints, No other Musculoskeletal: back pain, bone/joint pain, neck pain, No no complaints, No other, No restricted range of motion, No swelling Skin: bruising, pruritis, No erythema, No laceration, No no complaints, No other, No rash, No skin lesions Neurologic: dizziness, headache Exam/Review of Systems Vital Signs Vitals Vital Signs Date Time Temp Pulse Resp B/P Pulse Ox O2 Delivery O2 Flow Rate FiO2 04/20/16 16:03 78 04/20/16 15:37 98.9 20 119/58 96 04/20/16 09:35 Nasal Cannula 2.0 Intake and Output 04/19/16 04/19/16 04/20/16 15:00 23:00 07:00 Intake Total 360 ml 220 ml 800 ml Output Total 545 ml 270 ml 1000 ml Balance -185 ml -50 ml -200 ml Exam Constitutional: alert, distress, well developed, No frail, No non-verbal, No obese, No oriented, No other Psych: anxiety, confusion, No depression, No nl mood/affect, No no complaints, No other, No suicidal Head: atraumatic, normocephalic, No hematomas, No lacerations, No other Eyes: EOMI, nl lids, No PERRL, No fundi, disc, No icteric, No nl conjunctiva, No nl sclera, No other ENMT: nl external ears & nose, No intubated, No mucosa pink and moist, No nl lips & teeth, No nl nasal mucosa & septum, No other, No tympanic membranes Neck: jvd, nuchal rigidity, supple, No bruits, No masses, No non-tender, No other, No thyromegaly Respiratory: congested cough, No clear to auscultation, No crackles/rales, No diminished breath sounds, No intercostal retraction, No labored breathing, No normal air movement, No other, No respirations, No tactile fremitus, No wheezing Cardiovascular: regular rate and rhythm, No S3, No S4, No bruits, No diastolic murmur, No edema, No gallop, No irregular rhythm, No jugular venous distention (JVD), No murmurs/extra sounds, No nl pulses, No other, No rub, No systolic murmur Gastrointestinal: bowel sounds, soft, No ascites, No distended, No firm, No hepatomegaly, No mass, No nl liver, spleen, No non-tender, No other, No rebound or guarding, No splenomegaly, No surgical scars, No tender Genitourinary - Female: CVA tenderness Musculoskeletal: joint tenderness, muscle tone, muscle weakness, No nl extremities to inspection, No nl gait and stance, No other, No range of motion, No spine non-tender, No swelling Extremities: calf tenderness Neurological: confused, nl mental status, nl speech, numbness, No BAND MAKER II-XII intact, No DTR's symmetric, No focal weakness, No lethargic, No nl strength, No other, No reflexes, No unresponsive Skin: diaphoresis Results Result Diagram: 04/20/16 1415 Results 24 hrs Laboratory Tests Test 04/19/16 21:24 04/20/16 01:27 04/20/16 05:30 04/20/16 07:46 Bedside Glucose 192 143 133 Creatinine 1.15 H Test 04/20/16 11:34 04/20/16 14:15 04/20/16 16:27 Bedside Glucose 188 137 Alanine Aminotransferase (ALT/SGPT) 27 Albumin 3.9 Albumin/Globulin Ratio 1.14 Alkaline Phosphatase 72 Anion Gap 19 H Aspartate Amino Transf (AST/SGOT) 16 Blood Urea Nitrogen 41 H Calcium Level 9.1 Carbon Dioxide Level 29 Chloride Level 100 Creatinine 1.26 H Direct Bilirubin 0.00 Globulin 3.40 H Glucose Level 130 Indirect Bilirubin 0.3 Potassium Level 4.1 Sodium Level 144 Total Bilirubin 0.3 Total Protein 7.3 Medications Medications Current Medications Diagnostic Test (Pha) (Accucheck) 1 ea 02 XX Last administered on 04/20/16at 01 :27; Admin Dose 1 EA; Start 04/19/16 at 02:00 Acetaminophen (Tylenol Tab) 325 mg Q4H PRN PO PAIN AND OR ELEVATED TEMP Last administered on 04/19/16at 22:49; Admin Dose 325 MG; Start 04/18/16 at 18:00 Amlodipine Besylate (Norvasc) 10 mg HS NGT Last administered on 04/19/16 21: 29; Admin Dose 10 MG; Start 04/18/16 at 21:00 Aspirin (Aspirin) 81 mg DAILY PO Last administered on 04/20/16 08:56; Admin Dose 81 MG; Start 04/19/16 at 09:00 Atorvastatin Calcium (Lipitor) 40 mg HS PO Last administered on 04/19/16 21: 27; Admin Dose 40 MG; Start 04/18/16 at 21:00 Bisacodyl (Dulcolax Supp) 10 mg DAILY PRN [place] CONSTIPATION; Start 04/18/16 at 18:00 Carvedilol (Coreg) 12.5 mg BID PO Last administered on 04/20/16 08:56; Admin Dose 12.5 MG; Start 04/18/16 at 21:00 Celecoxib (Celebrex) 200 mg DAILY PO Last administered on 04/20/16 08:55; Admin Dose 200 MG; Start 04/19/16 at 09:00 Cholecalciferol (Vitamin D) 2,000 unit DAILY PO Last administered on 09:59; Admin Dose 2,000 UNIT; Start 04/19/16 at 09:00 Cyanocobalamin (Vitamin B12 Inj) 1,000 mcg DAILY IM Last administered on 09:59; Admin Dose 1,000 MCG; Start 04/19/16 at 09:00; Stop 04/21/16 at 11 :00 Donepezil HCl (Aricept) 10 mg DAILY PO Last administered on 04/20/16 09:59; Admin Dose 10 MG; Start 04/19/16 at 09:00 Hydralazine HCl (Apresoline) 50 mg Q8 PO Last administered on 04/20/16 14:08 ; Admin Dose 50 MG; Start 04/18/16 at 22:00 Hydrochlorothiazide (Hydrochlorothiazide) 25 mg DAILY PO Last administered on 04/20/16 08:56; Admin Dose 25 MG; Start 04/19/16 at 09:00 Lactulose (Enulose) 20 gm DAILY PRN PO CONSTIPATION; Start 04/18/16 at 18:00 Linagliptin (Tradjenta) 5 mg DAILY PO Last administered on 04/20/16 09:59; Admin Dose 5 MG; Start 04/19/16 at 09:00 Loperamide HCl (Imodium Cap) 2 mg QID PRN PO DIARRHEA; Start 04/18/16 at 18:00 Lorazepam (Ativan) 0.5 mg HS PO Last administered on 04/19/16at 21:27; Admin Dose 0.5 MG; Start 04/18/16 at 21:00 Lorazepam (Ativan) 1 mg Q12 PRN PO AGITATION/ANXIETY; Start 04/18/16 at 18:00 Losartan Potassium (Cozaar) 100 mg DAILY PO ; Start 04/19/16 at 09:00 Magnesium Hydroxide (Milk Of Mag) 30 ml DAILY PRN PO CONSTIPATION; Start 04/18 at 18:00 Meclizine HCl (Antivert) 25 mg DAILY PO Last administered on 04/20/16at 09:59; Admin Dose 25 MG; Start 04/19/16 at 09:00 Memantine (Namenda) 10 mg BID PO Last administered on 04/20/16at 08:57; Admin Dose 10 MG; Start 04/18/16 at 21:00 Pantoprazole (Protonix Tab) 40 mg DAILY@06 PO Last administered on 04/20/16at 05:52; Admin Dose 40 MG; Start 04/19/16 at 06:00 Sertraline HCl 25 mg 25 mg DAILY PO Last administered on 04/20/16at 08:55; Admin Dose 25 MG; Start 04/19/16 at 09:00 Ferric Sodium Gluconate Complex/ Sodium Chloride (Ferrlecit/NS) 110 ml @ 110 mls/hr Q24H IVPB Last administered on 04/20/16at 08:57; Admin Dose 110 MLS/HR; Start 04/19/16 at 09:00; Stop 04/21/16 at 09:59 Solifenacin (Vesicare) 5 mg DAILY PO Last administered on 04/20/16 08:57; Admin Dose 5 MG; Start 04/19/16 at 09:00 Zolpidem Tartrate (Ambien) 5 mg HS PO Last administered on 04/19/16at 21:26; Admin Dose 5 MG; Start 04/18/16 at 21:00 Miscellaneous Information 1 ea NOTE XX ; Start 04/18/16 at 18:30 Glucose (Glutose) 15 gm Q15M PRN PO DECREASED GLUCOSE; Start 04/18/16 at 18:30 Glucose (Glutose) 22.5 gm Q15M PRN PO DECREASED GLUCOSE; Start 04/18/16 at 18: 30 Dextrose (D50w Syringe) 25 ml Q15M PRN IV DECREASED GLUCOSE; Start 04/18/16 at 18:30 Dextrose (D50w Syringe) 50 ml Q15M PRN IV DECREASED GLUCOSE; Start 04/18/16 at 18:30 Glucagon (Glucagen) 1 mg Q15M PRN IM DECREASED GLUCOSE; Start 04/18/16 at 18: 30 Glucose (Glutose) 15 gm Q15M PRN BUCCAL DECREASED GLUCOSE; Start 04/18/16 at 18:30 Clonidine HCl (Catapres-Tts 1 Patch) 1 patch Q7D TRANSDERM ; Start 04/22/16 at 09:00 Clonidine (Catapres) 0.1 mg Q8H PRN PO ELEVATED SYSTOLIC BP>150; Start at 18:30 Influenza Virus Vaccine (Fluzone) 0.5 ml ONCE ONCE IM* ; Start 04/21/16 at 09: 00; Stop 04/21/16 at 09:01 Apixaban (Eliquis) 2.5 mg BID PO ; Start 04/20/16 at 20:00 VANI DALAL MD Apr 20, 2016 17:57
[2016-04-20] MEDS ORDERED: APIXABAN 5 MG TABLET PO SCH (20:00)
[2016-04-20] MEDS: ZOLPIDEM 5 MG TAB PO SCH (20:42)
[2016-04-20] MEDS: ATORVASTATIN 40 MG TAB PO SCH (20:42)
[2016-04-20] MEDS: LORAZEPAM 0.5 MG TAB PO SCH (20:42)
[2016-04-20] MEDS: ACETAMINOPHEN 325 MG TAB PO PRN (20:42)
[2016-04-20] MEDS: APIXABAN 5 MG TABLET PO SCH (20:43)
[2016-04-20] MEDS: AMLODIPINE 10 MG TAB NGT SCH (20:48)
[2016-04-21] VITALS (11 sets, daily range): BP systolic 112–160; BP diastolic 53–70; PULSE 65–82; RESP 18–21
[2016-04-21] MEDS: ACCUCHECK XX SCH (00:47)
[2016-04-21] MEDS: PANTOPRAZOLE (EC) 40 MG TAB PO SCH (05:08)
[2016-04-21] MEDS: INSULIN ASPART [NOVOLOG] 3 ML PEN SC SCH ×4 (07:34→21:00)
[2016-04-21] MEDS: metFORMIN 500 MG TAB PO SCH ×2 (07:34→17:26)
[2016-04-21] MEDS: CYANOCOBALAMIN 1000 MCG INJ IM SCH (08:38)
[2016-04-21] MEDS: CELECOXIB 200 MG CAP PO SCH (08:38)
[2016-04-21] MEDS: SOD FERRIC GLUC COMPLX 125 MG in SOD CHLORIDE 0.9% 100 ML IVPB SCH (08:38)
[2016-04-21] MEDS: CHOLECALCIFEROL 2,000 UNIT CAP PO SCH (08:42)
[2016-04-21] MEDS: SERTRALINE 50 MG TAB PO SCH (08:43)
[2016-04-21] MEDS: SOLIFENACIN 5 MG TAB PO SCH (08:43)
[2016-04-21] MEDS: MEMANTINE 10 MG TAB PO SCH ×2 (08:43→21:00)
[2016-04-21] MEDS: MECLIZINE 25 MG TAB PO SCH (08:43)
[2016-04-21] MEDS: HYDROCHLOROTHIAZIDE 25 MG TAB PO SCH (08:43)
[2016-04-21] MEDS: DONEPEZIL 10 MG TAB PO SCH (08:44)
[2016-04-21] MEDS: LOSARTAN 50 MG TAB PO SCH (08:44)
[2016-04-21] MEDS: LINAGLIPTIN 5 MG TABLET PO SCH (08:44)
[2016-04-21] MEDS: ASPIRIN 81 MG TAB PO SCH (08:45)
[2016-04-21] MEDS: APIXABAN 5 MG TABLET PO SCH ×2 (08:45→22:11)
[2016-04-21] MEDS: ACETAMINOPHEN 325 MG TAB PO PRN (08:48)
[2016-04-21] MEDS ORDERED: INFLUENZA VIRUS VACCINE 0.5 ML (DISPENSING) IM* ONE (09:00)
--- NOTE | 2016-04-21 11:41 | DS ---
Date/Time of Note Date/Time of Note DATE: 04/21/16 TIME: 11:40 Discharge Summary Admission/Discharge Info Admit Date/Time Apr 18, 2016 at 17:15 Discharge Date/Time Final Diagnosis 1.Paroxysm of tachycardia not clear yet:Paroxysmal a.fibrillation with rapid ventricular rate vs another type of SVT. 2.HTN out of control- become hypotensive during tachycardia attack as she did during previous tachycardic attacks. 3.DM type 2 4.Dyslipidemia 5.AD - getting worse, with anxiety d/o 6.S/P hemicolectomy with appendectomy by HX due to of colonic cancer 7.Progressive weight loss (more than 40 lb in less than a year) 8.VDV;DVT? HX? 9.S/P cataractectomy bilateral 10.S/P falls and recent head trauma. 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 12.S/P [place] rhythm [place] [facility] [place] 13.Hx of recurrent uti's 14.LEW and osteoporosis 15.Redness of t he skin of calcaneal areas. 16.Diarrhea due to of short bowel with other causes 17.Severe muscular weakness 18.Severe hearing impairment 19.Anemia of chronic disease 20.Low magnesium levels on and off 21.Low Vit "D" level 22.LVH with diastolic dysfunction. 23.Multiple bruises of extremities 24.Osteoporosis 25. S/P Fx of the right hip; s/p orif. 26.PAD 27.CVA with right weakness Patient Condition: Fair Hospital Course Acute stroke Atrial fib LVH Hypertension Hyperlipidemia The pt will need to stop the Plavix and start Eliquis 2.5mg po bid and continue the Aspirin. Home Meds Active Scripts Digoxin* (Digitek*) 0.125 Mg Tab, 0.125 MG PO DAILY@13 for 14 Days Prov:WILLIAM AYALA NP 01/30/15 Clopidogrel Bisulfate (Clopidogrel) 75 Mg Tab, 75 MG PO DAILY for 30 Days Prov:WILLIAM AYALA NP 10/26/14 Sitagliptin* (Januvia*) 50 Mg Tablet, 50 MG PO DAILY for 30 Days, TAB Prov:WILLIAM AYALA NP 10/26/14 Valsartan* (Diovan*) 80 Mg Tab, 80 MG PO BID for 30 Days Prov:WILLIAM AYALA NP 10/26/14 Carvedilol* (Coreg*) 6.25 Mg Tab, 6.25 MG PO BID for 30 Days Prov:JAMIEWILLIAM NP 10/26/14 Atorvastatin Calcium* (Atorvastatin Calcium*) 20 Mg Tab, 40 MG PO HS for 30 Days Prov:WILLIAM AYALA NP 10/26/14 Aspirin* (Aspirin* EC) 81 Mg Tabec, 81 MG PO DAILY for 30 Days Prov:WILLIAM AYALA NP 10/26/14 Reported Medications Memantine* (Namenda* XR) 28 Mg Cap.spr.24, 28 MG PO DAILY, TAB 01/29/15 Zolpidem Tartrate* (Ambien*) 10 Mg Tablet, 10 MG PO HS Y for INSOMNIA, TAB 01/29/15 Dexlansoprazole (Dexilant) 60 Mg Cap.mp, 60 MG PO DAILY, CAP 01/29/15 Ezetimibe* (Zetia*) 10 Mg Tablet, 10 MG PO HS, TAB 01/29/15 Olmesartan-Hydrochlorothiazide (Benicar HCT) 40-25 Mg Tablet, 1 TAB PO DAILY, TAB 01/29/15 Rosuvastatin Calcium* (Crestor*) 40 Mg Tablet, 40 MG PO HS, TAB 01/29/15 Celecoxib* (Celebrex*) 200 Mg Capsule, 200 MG PO BID, CAP 01/29/15 Epmnwl-Wnrcosys-Seccktb* (Creaimee DR* 24,000) 24,000 L-76,000-120,000 Unit Capsule.dr, 1 CAP PO BID WITH MEALS, CAP 01/29/15 Metformin Hcl* (Metformin Hcl*) 500 Mg Tablet, 500 MG PO BID WITH MEALS, TAB 01/29/15 Meclizine Hcl* (Meclizine Hcl*) 25 Mg Tablet, 25 MG PO DAILY for DIZZINESS, TAB 10/23/14 Follow-up Plan Discharge and transfer to Rehab. Pending Labs Laboratory Tests Test 04/20/16 14:15 04/20/16 16:27 04/20/16 20:39 04/21/16 07:33 Alanine Aminotransferase (ALT/SGPT) 27IU/L (13-69) Albumin 3.9g/dl (3.3-4.9) Albumin/Globulin Ratio 1.14 Alkaline Phosphatase 72IU/L (42-121) Anion Gap 19 (8-16) Aspartate Amino Transf (AST/SGOT) 16IU/L (15-46) Blood Urea Nitrogen 41mg/dl (7-20) Calcium Level 9.1mg/dl (8.4-10.2) Carbon Dioxide Level 29mmol/L (21-31) Chloride Level 100mmol/L (97-110) Creatinine 1.26mg/dl (0.44-1.00) Direct Bilirubin 0.00mg/dl (0.00-0.20) Globulin 3.40g/dl (1.3-3.2) Glucose Level 130mg/dl (70-220) Indirect Bilirubin 0.3mg/dl (0-1.1) Potassium Level 4.1mmol/L (3.5-5.1) Sodium Level 144mmol/L (135-144) Total Bilirubin 0.3mg/dl (0.2-1.3) Total Protein 7.3g/dl (6.1-8.1) Bedside Glucose 137mg/dL (70-220) 132mg/dL (70-220) 133mg/dL (70-220) VANI DALAL MD Apr 21, 2016 11:41
[2016-04-21] MEDS: ATORVASTATIN 40 MG TAB PO SCH (22:10)
[2016-04-21] MEDS: ZOLPIDEM 5 MG TAB PO SCH (22:11)
[2016-04-21] MEDS: LORAZEPAM 0.5 MG TAB PO SCH (22:12)
[2016-04-21] MEDS: AMLODIPINE 10 MG TAB NGT SCH (22:12)
[2016-04-22] VITALS (12 sets, daily range): BP systolic 131–164; BP diastolic 63–86; PULSE 61–79; RESP 16–20
[2016-04-22] MEDS: ACCUCHECK XX SCH (02:00)
[2016-04-22] MEDS: PANTOPRAZOLE (EC) 40 MG TAB PO SCH (06:01)
[2016-04-22] MEDS: metFORMIN 500 MG TAB PO SCH ×2 (07:44→17:05)
[2016-04-22] MEDS: INSULIN ASPART [NOVOLOG] 3 ML PEN SC SCH ×4 (07:44→21:00)
[2016-04-22 08:28] LABS: CREATININE 1.23 mg/dl (0.44-1.00)
[2016-04-22] MEDS ORDERED: CLONIDINE 0.1 MG/24 HR PATCH TRANSDERM SCH (09:00)
[2016-04-22] MEDS: CHOLECALCIFEROL 2,000 UNIT CAP PO SCH (09:00)
[2016-04-22] MEDS: MECLIZINE 25 MG TAB PO SCH (09:57)
[2016-04-22] MEDS: ASPIRIN 81 MG TAB PO SCH (09:57)
[2016-04-22] MEDS: DONEPEZIL 10 MG TAB PO SCH (09:57)
[2016-04-22] MEDS: CELECOXIB 200 MG CAP PO SCH (09:58)
[2016-04-22] MEDS: APIXABAN 5 MG TABLET PO SCH ×2 (09:59→21:32)
[2016-04-22] MEDS: LOSARTAN 50 MG TAB PO SCH (09:59)
[2016-04-22] MEDS: SOLIFENACIN 5 MG TAB PO SCH (10:00)
[2016-04-22] MEDS: MEMANTINE 10 MG TAB PO SCH ×2 (10:00→21:55)
[2016-04-22] MEDS: LINAGLIPTIN 5 MG TABLET PO SCH (10:00)
[2016-04-22] MEDS: HYDROCHLOROTHIAZIDE 25 MG TAB PO SCH (10:00)
[2016-04-22] MEDS: CLONIDINE 0.1 MG/24 HR PATCH TRANSDERM SCH (10:01)
[2016-04-22] MEDS: SERTRALINE 50 MG TAB PO SCH (10:05)
--- NOTE | 2016-04-22 19:52 | PN ---
Date/Time of Note Date/Time of Note DATE: 04/22/16 TIME: 19:46 Assessment/Plan VTE Prophylaxis VTE Prophylaxis Intervention: ambulation, anti-embolic stocking VTE Contraindication Reason: peripheral vascular disease Lines/Catheters IV Catheter Type (from Nrsg): Saline Lock Central line still needed: No Urinary Cath still in place: Yes Reason Cath still needed: urinary retention Assessment/Plan Chief Complaint/Hosp Course 1.Paroxismal a.fibrillation with rapid ventricular rate vs SVT. 2.HTN out of control- become hypotensive during a.fib. attack. 3.DM type 2 4.Dyslipidemia 5.AD - getting worse, with anxiety d/o 6.S/P hemicolectomy with appendectomy by HX due to of colonic cancer 7.Progressive weight loss (more than 40 lb in less than a year) 8.VDV;DVT? HX? 9.S/P cataractectomy bilateral 10.S/P falls and recent head trauma. 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 12.S/P PSVT converted to sinus rhythm by adenosine in [facility] 2012? 13.Hx of recurrent uti's 14.LEW and osteoporosis 15.Redness of t he skin of calcaneal areas. 16.Diarrhea due to of short bowel with other causes 17.Severe muscular weakness 18.Severe hearing impairment 19.Anemia of chronic disease 20.Low magnesium levels on and off 21.Low Vit "D" level 22.LVH with diastolic dysfunction. 23.Multiple bruises of extremities 24.Osteoporosis 25. S/P Fx of the right hip; s/p orif. 26.PAD 27.CVA with right weakness- improving Problems: Cont'd Hospitalization Reason: Rehab. Subjective 24 Hr Interval Summary Constitutional: disoriented, poor po, requiring O2, No chills, No diaphoresis, No febrile, No improved, No no complaints, No other, No requiring IVF Eyes: redness, visual change, No discharge, No no complaints, No other, No pain ENT: congestion, No bleeding, No discharge, No dysphagia, No no complaints, No other, No pain , No sore throat Respiratory: shortness of breath, No cough, No no complaints, No other, No pain, No pleuritic pain, No sputum, No wheezing Cardiovascular: lightheadedness, orthopenea, No chest pain, No edema, No no complaints, No other, No palpitations, No paroxysmal nocturnal dyspnea Gastrointestinal: diarrhea, flatus, passing stool, No blood, No constipation, No decreased appetite, No nausea, No no complaints , No other, No pain, No vomiting Genitourinary: flank pain, No bleeding, No discharge, No dysuria, No hematuria, No no complaints, No other Musculoskeletal: bone/joint pain, neck pain, No back pain, No no complaints, No other, No restricted range of motion, No swelling Psychological: anxiety, confusion, depression, No nl mood/affect, No no complaints, No other, No suicidal Exam/Review of Systems Vital Signs Vitals Vital Signs Date Time Temp Pulse Resp B/P Pulse Ox O2 Delivery O2 Flow Rate FiO2 04/22/16 16:35 72 04/22/16 15:24 98.1 18 139/86 97 04/22/16 08:43 Nasal Cannula 2.0 Intake and Output 04/21/16 04/21/16 04/22/16 15:00 23:00 07:00 Intake Total 730 ml 300 ml Output Total 550 ml 700 ml Balance 180 ml -400 ml Exam Constitutional: alert, frail, well developed, No distress, No non-verbal, No obese, No oriented, No other Psych: anxiety, confusion, depression, No nl mood/affect, No no complaints, No other, No suicidal Head: atraumatic, No hematomas, No lacerations, No normocephalic, No other Eyes: EOMI, PERRL, nl lids ENMT: nl nasal mucosa & septum, No intubated, No mucosa pink and moist, No nl external ears & nose, No nl lips & teeth, No other, No tympanic membranes Respiratory: congested cough, diminished breath sounds, labored breathing Cardiovascular: jugular venous distention (JVD), systolic murmur, No S3, No S4, No bruits, No diastolic murmur, No edema, No gallop, No irregular rhythm, No murmurs/extra sounds, No nl pulses, No other, No regular rate and rhythm, No rub Gastrointestinal: bowel sounds, nl liver, spleen, non-tender, soft, No ascites, No distended, No firm, No hepatomegaly, No mass, No other, No rebound or guarding, No splenomegaly, No surgical scars, No tender Musculoskeletal: joint tenderness, muscle tone, muscle weakness, other (right leg more than right upper extreemity weakness.) Neurological: PS[employer]CHI[employer]IDE [employer] II-XII intact (except cn#8.), confused, focal weakness, numbness Results Result Diagram: 04/22/16 0705 Results 24 hrs Laboratory Tests Test 04/21/16 20:50 04/22/16 07:05 04/22/16 07:43 04/22/16 12:03 Bedside Glucose 137 125 131 Blood Urea Nitrogen 43 H Creatinine 1.23 H Test 04/22/16 16:57 Bedside Glucose 121 Medications Medications Current Medications Diagnostic Test (Pha) (Accucheck) 1 ea 02 XX Last administered on 04/22/16at 02 :00; Admin Dose 1 EA; Start 04/19/16 at 02:00 Acetaminophen (Tylenol Tab) 325 mg Q4H PRN PO PAIN AND OR ELEVATED TEMP Last administered on 04/21/16at 08:48; Admin Dose 325 MG; Start 04/18/16 at 18:00 Amlodipine Besylate (Norvasc) 10 mg HS NGT Last administered on 04/21/16at 22: 12; Admin Dose 10 MG; Start 04/18/16 at 21:00 Aspirin (Aspirin) 81 mg DAILY PO Last administered on 04/22/16at 09:57; Admin Dose 81 MG; Start 04/19/16 at 09:00 Atorvastatin Calcium (Lipitor) 40 mg HS PO Last administered on 04/21/16at 22: 10; Admin Dose 40 MG; Start 04/18/16 at 21:00 Bisacodyl (Dulcolax Supp) 10 mg DAILY PRN [place] CONSTIPATION; Start 04/18/16 at 18:00 Carvedilol (Coreg) 12.5 mg BID PO Last administered on 04/22/16at 09:58; Admin Dose 12.5 MG; Start 04/18/16 at 21:00 Celecoxib (Celebrex) 200 mg DAILY PO Last administered on 04/22/16at 09:58; Admin Dose 200 MG; Start 04/19/16 at 09:00 Cholecalciferol (Vitamin D) 2,000 unit DAILY PO Last administered on at 08:42; Admin Dose 2,000 UNIT; Start 04/19/16 at 09:00 Donepezil HCl (Aricept) 10 mg DAILY PO Last administered on 04/22/16 09:57; Admin Dose 10 MG; Start 04/19/16 at 09:00 Hydralazine HCl (Apresoline) 50 mg Q8 PO Last administered on 04/22/16 14:50 ; Admin Dose 50 MG; Start 04/18/16 at 22:00 Hydrochlorothiazide (Hydrochlorothiazide) 25 mg DAILY PO Last administered on 04/22/16 10:00; Admin Dose 25 MG; Start 04/19/16 at 09:00 Lactulose (Enulose) 20 gm DAILY PRN PO CONSTIPATION; Start 04/18/16 at 18:00 Linagliptin (Tradjenta) 5 mg DAILY PO Last administered on 04/22/16 10:00; Admin Dose 5 MG; Start 04/19/16 at 09:00 Loperamide HCl (Imodium Cap) 2 mg QID PRN PO DIARRHEA; Start 04/18/16 at 18:00 Lorazepam (Ativan) 0.5 mg HS PO Last administered on 04/21/16 22:12; Admin Dose 0.5 MG; Start 04/18/16 at 21:00 Lorazepam (Ativan) 1 mg Q12 PRN PO AGITATION/ANXIETY; Start 04/18/16 at 18:00 Losartan Potassium (Cozaar) 100 mg DAILY PO Last administered on 04/22/16 09: 59; Admin Dose 100 MG; Start 04/19/16 at 09:00 Magnesium Hydroxide (Milk Of Mag) 30 ml DAILY PRN PO CONSTIPATION; Start 04/18 at 18:00 Meclizine HCl (Antivert) 25 mg DAILY PO Last administered on 04/22/16 09:57; Admin Dose 25 MG; Start 04/19/16 at 09:00 Memantine (Namenda) 10 mg BID PO Last administered on 04/22/16 10:00; Admin Dose 10 MG; Start 04/18/16 at 21:00 Pantoprazole (Protonix Tab) 40 mg DAILY@06 PO Last administered on 04/22/16 06:01; Admin Dose 40 MG; Start 04/19/16 at 06:00 Sertraline HCl (Zoloft) 25 mg DAILY PO Last administered on 04/22/16 10:05; Admin Dose 25 MG; Start 12/24/16 at 09:00 Solifenacin (Vesicare) 5 mg DAILY PO Last administered on 04/22/16at 10:00; Admin Dose 5 MG; Start 04/19/16 at 09:00 Zolpidem Tartrate (Ambien) 5 mg HS PO Last administered on 04/21/16at 22:11; Admin Dose 5 MG; Start 04/18/16 at 21:00 Miscellaneous Information 1 ea NOTE XX ; Start 04/18/16 at 18:30 Glucose (Glutose) 15 gm Q15M PRN PO DECREASED GLUCOSE; Start 04/18/16 at 18:30 Glucose (Glutose) 22.5 gm Q15M PRN PO DECREASED GLUCOSE; Start 04/18/16 at 18: 30 Dextrose (D50w Syringe) 25 ml Q15M PRN IV DECREASED GLUCOSE; Start 04/18/16 at 18:30 Dextrose (D50w Syringe) 50 ml Q15M PRN IV DECREASED GLUCOSE; Start 04/18/16 at 18:30 Glucagon (Glucagen) 1 mg Q15M PRN IM DECREASED GLUCOSE; Start 04/18/16 at 18: 30 Glucose (Glutose) 15 gm Q15M PRN BUCCAL DECREASED GLUCOSE; Start 04/18/16 at 18:30 Clonidine HCl (Catapres-Tts 1 Patch) 1 patch Q7D TRANSDERM Last administered on 04/22/16at 10:01; Admin Dose 1 PATCH; Start 04/22/16 at 09:00 Clonidine (Catapres) 0.1 mg Q8H PRN PO ELEVATED SYSTOLIC BP>150; Start at 18:30 Apixaban (Eliquis) 2.5 mg BID PO Last administered on 04/22/16at 09:59; Admin Dose 2.5 MG; Start 04/20/16 at 20:00 VANI DALAL MD Apr 22, 2016 19:52
[2016-04-22] MEDS: AMLODIPINE 10 MG TAB NGT SCH (21:31)
[2016-04-22] MEDS: ZOLPIDEM 5 MG TAB PO SCH (21:32)
[2016-04-22] MEDS: ATORVASTATIN 40 MG TAB PO SCH (21:32)
[2016-04-22] MEDS: LORAZEPAM 0.5 MG TAB PO SCH (21:32)
[2016-04-23] VITALS (12 sets, daily range): BP systolic 111–147; BP diastolic 55–89; PULSE 64–87; RESP 16–20
[2016-04-23] MEDS: ACCUCHECK XX SCH (01:40)
[2016-04-23] MEDS: PANTOPRAZOLE (EC) 40 MG TAB PO SCH (05:58)
[2016-04-23 07:11] LABS: BASOPHILS % 0.4 % (0.0-2.0); EOSINOPHILS # 0.3 10^3/ul (0.0-0.5); EOSINOPHILS % 3.1 % (0.0-7.0); HEMATOCRIT 32.5 % (37.0-47.0); HEMOGLOBIN 10.9 g/dl (12.0-16.0); LYMPHOCYTES % 19.1 % (15.0-51.0); MEAN CORPUSCULAR HEMOGLOBIN 29.6 pg (29.0-33.0); MEAN CORPUSCULAR HGB CONC 33.4 g/dl (32.0-37.0); MEAN CORPUSCULAR VOLUME 88.4 fl (82.0-101.0); MEAN PLATELET VOLUME 10.6 fl (7.4-10.4); MONOCYTE # 0.7 10^3/ul (0.3-0.9); MONOCYTES % 6.7 % (0.0-11.0); NEUTROPHIL # 7.5 10^3/ul (1.6-7.5); NEUTROPHILS % 70.7 % (39.0-77.0); PLATELET COUNT 144 10^3/UL (140-440); RED BLOOD COUNT 3.68 10^6/ul (4.20-5.40); RED CELL DISTRIBUTION WIDTH 14.8 % (11.5-14.5); UNCORRECTED WBC 10.7 10^3/ul (4.8-10.8); WHITE BLOOD COUNT 10.7 10^3/ul (4.8-10.8)
[2016-04-23 07:19] LABS: IRON 42 ug/dl (35-150)
[2016-04-23 07:21] LABS: CONDITION 1; LH ANALYZER COMMENTS 1
[2016-04-23 07:29] LABS: TOTAL IRON BINDING CAPACITY 221 ug/dl (241-421)
[2016-04-23 07:37] LABS: CALCIUM 9.4 mg/dl (8.4-10.2); CREATININE 1.23 mg/dl (0.44-1.00); MAGNESIUM 1.7 mg/dl (1.7-2.5); POTASSIUM 3.9 mmol/L (3.5-5.1)
[2016-04-23] MEDS: INSULIN ASPART [NOVOLOG] 3 ML PEN SC SCH ×4 (08:00→21:00)
[2016-04-23] MEDS: CELECOXIB 200 MG CAP PO SCH (09:16)
[2016-04-23] MEDS: APIXABAN 5 MG TABLET PO SCH ×2 (09:16→20:33)
[2016-04-23] MEDS: CHOLECALCIFEROL 2,000 UNIT CAP PO SCH (09:18)
[2016-04-23] MEDS: DONEPEZIL 10 MG TAB PO SCH (09:18)
[2016-04-23] MEDS: MEMANTINE 10 MG TAB PO SCH ×2 (09:18→20:33)
[2016-04-23] MEDS: SOLIFENACIN 5 MG TAB PO SCH (09:18)
[2016-04-23] MEDS: metFORMIN 500 MG TAB PO SCH ×2 (09:19→17:36)
[2016-04-23] MEDS: LOSARTAN 50 MG TAB PO SCH (09:20)
[2016-04-23] MEDS: SERTRALINE 50 MG TAB PO SCH (09:20)
[2016-04-23] MEDS: MECLIZINE 25 MG TAB PO SCH (09:20)
[2016-04-23] MEDS: HYDROCHLOROTHIAZIDE 25 MG TAB PO SCH (09:21)
[2016-04-23] MEDS: LINAGLIPTIN 5 MG TABLET PO SCH (09:21)
[2016-04-23] MEDS: ASPIRIN 81 MG TAB PO SCH (09:21)
--- NOTE | 2016-04-23 15:00 | RADRPT ---
Vent Rate: 73 bpm RR Interval: 0 msec AL Interval: 140 msec QRS Duration: 116 msec QT Interval: 414 msec QTC Interval: 456 msec P-R-T [place]: 61 - 4 - 104 degrees Sinus rhythm with occasional premature ventricular complexes Left ventricular hypertrophy with QRS widening and repolarization abnormality Abnormal ECG Electronically Signed By: Boni Francisco [id number]
--- NOTE | 2016-04-23 18:27 | PN ---
Date/Time of Note Date/Time of Note DATE: 04/23/16 TIME: 18:21 Assessment/Plan VTE Prophylaxis VTE Prophylaxis Intervention: ambulation, anti-embolic stocking VTE Contraindication Reason: peripheral vascular disease Lines/Catheters IV Catheter Type (from Nrs): Saline Lock Central line still needed: No Urinary Cath still in place: Yes Reason Cath still needed: urinary retention Assessment/Plan Chief Complaint/Hosp Course 1.Paroxismal a.fibrillation with rapid ventricular rate vs SVT. 2.HTN out of control- become hypotensive during a.fib. attack. 3.DM type 2 4.Dyslipidemia 5.AD - getting worse, with anxiety d/o 6.S/P hemicolectomy with appendectomy by HX due to of colonic cancer 7.Progressive weight loss (more than 40 lb in less than a year) 8.VDV;DVT? HX? 9.S/P cataractectomy bilateral 10.S/P falls and recent head trauma. 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 12.S/P PSVT converted to sinus rhythm [place] [facility] [place]? 13.Hx of recurrent uti's 14.LEW and osteoporosis 15.Redness of t he skin of calcaneal areas. 16.Diarrhea due to of short bowel with other causes 17.Severe muscular weakness 18.Severe hearing impairment 19.Anemia of chronic disease 20.Low magnesium levels on and off 21.Low Vit "D" level 22.LVH with diastolic dysfunction. 23.Multiple bruises of extremities 24.Osteoporosis 25. S/P Fx of the right hip; s/p orif. 26.PAD 27.CVA with right weakness- improving Problems: Assessment/Plan Chief Complaint/Hosp Course 1.Paroxismal a.fibrillation with rapid ventricular rate vs SVT. 2.HTN out of control- become hypotensive during a.fib. attack. 3.DM type 2 4.Dyslipidemia 5.AD - getting worse, with anxiety d/o 6.S/P hemicolectomy with appendectomy by HX due to of colonic cancer 7.Progressive weight loss (more than 40 lb in less than a year) 8.VDV;DVT? HX? 9.S/P cataractectomy bilateral 10.S/P falls and recent head trauma. 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 12.S/P PSVT converted to sinus rhythm by adenosine in [facility] [place]? 13.Hx of recurrent uti's 14.LEW and osteoporosis 15.Redness of t he skin of calcaneal areas. 16.Diarrhea due to of short bowel with other causes 17.Severe muscular weakness 18.Severe hearing impairment 19.Anemia of chronic disease 20.Low magnesium levels on and off 21.Low Vit "D" level 22.LVH with diastolic dysfunction. 23.Multiple bruises of extremities 24.Osteoporosis 25. S/P Fx of the right hip; s/p orif. 26.PAD 27.CVA with right weakness- improving Cont'd Hospitalization Reason: transfer to rehab. Subjective 24 Hr Interval Summary Free Text/Dictation Weakness of the right leg more than arm. Constitutional: disoriented, poor po, requiring O2, No chills, No diaphoresis, No febrile, No improved, No no complaints, No other, No requiring IVF Eyes: No discharge, No no complaints, No other, No pain, No redness, No visual change ENT: congestion, No bleeding, No discharge, No dysphagia, No no complaints, No other, No pain , No sore throat Respiratory: shortness of breath, No cough, No no complaints, No other, No pain, No pleuritic pain, No sputum, No wheezing Cardiovascular: orthopenea, paroxysmal nocturnal dyspnea, No chest pain, No edema, No lightheadedness, No no complaints, No other, No palpitations Gastrointestinal: decreased appetite, flatus, pain, passing stool, No blood, No constipation, No diarrhea, No nausea, No no complaints, No other , No vomiting Genitourinary: No bleeding, No discharge, No dysuria, No flank pain, No hematuria, No no complaints, No other Musculoskeletal: back pain, bone/joint pain, neck pain, No no complaints, No other, No restricted range of motion, No swelling Skin: rash, No bruising, No erythema, No laceration, No no complaints, No other, No pruritis, No skin lesions Neurologic: confusion, dizziness, headache, No focal-weakness, No no complaints, No other, No seizure, No syncope Endocrine: dry skin, No no complaints, No other, No polydypsia, No polyuria, No temp intolerance Lymphatic: No adenopathy, No lymphadema, No no complaints, No other, No tender nodes Psychological: anxiety, confusion, depression, other (impaired memory to current events.), No nl mood/affect, No no complaints, No suicidal Immunologic: No immunodeficiency, No no complaints, No other, No pruritis, No rhinitis, No urticaria Exam/Review of Systems Vital Signs Vitals Vital Signs Date Time Temp Pulse Resp B/P Pulse Ox O2 Delivery O2 Flow Rate FiO2 04/23/16 16:37 87 04/23/16 15:20 98.3 18 146/82 97 04/22/16 08:43 Nasal Cannula 2.0 Intake and Output 04/22/16 04/22/16 04/23/16 15:00 23:00 07:00 Intake Total 740 ml 400 ml Output Total 900 ml 700 ml Balance -160 ml -300 ml Exam Constitutional: alert, obese, well developed, No distress, No frail, No non-verbal, No oriented, No other Psych: anxiety, confusion, No depression, No nl mood/affect, No no complaints, No other, No suicidal Head: atraumatic, No hematomas, No lacerations, No normocephalic, No other Eyes: PERRL, nl lids, No EOMI, No fundi, disc, No icteric, No nl conjunctiva, No nl sclera, No other ENMT: nl external ears & nose, nl nasal mucosa & septum, No intubated, No mucosa pink and moist, No nl lips & teeth, No other, No tympanic membranes Neck: bruits, nuchal rigidity, supple, No jvd, No masses, No non-tender, No other, No thyromegaly Respiratory: congested cough, intercostal retraction, respirations, No clear to auscultation, No crackles/rales, No diminished breath sounds, No labored breathing, No normal air movement, No other, No tactile fremitus, No wheezing Cardiovascular: bruits, systolic murmur, No S3, No S4, No diastolic murmur, No edema, No gallop, No irregular rhythm, No jugular venous distention (JVD), No murmurs/extra sounds, No nl pulses, No other, No regular rate and rhythm, No rub Gastrointestinal: bowel sounds, nl liver, spleen, non-tender, soft, No ascites, No distended, No firm, No hepatomegaly, No mass, No other, No rebound or guarding, No splenomegaly, No surgical scars, No tender Genitourinary - Female: No CMT, No CVA tenderness, No nl adnexae, No nl external genitalia, No other, No uterus Musculoskeletal: joint tenderness, muscle tone, muscle weakness Extremities: No calf tenderness, No clubbing, No cyanosis, No edema, No normal pulses, No other, No palpable cord, No pitting pedal edema, No tenderness Neurological: INTERN BRAND II-XII intact (deafness.), confused, numbness (moderate deafness.) Skin: diaphoresis, rash or lesions Results Result Diagram: 04/23/16 0624 04/23/16 0624 Results 24 hrs Laboratory Tests Test 04/22/16 21:29 04/23/16 06:24 04/23/16 07:40 04/23/16 11:29 Bedside Glucose 167 135 145 Anion Gap 19 H Basophils # 0.0 Basophils % 0.4 Blood Morphology Comment Blood Urea Nitrogen 44 H Calcium Level 9.4 Carbon Dioxide Level 28 Chloride Level 104 Creatinine 1.23 H Eosinophils # 0.3 Eosinophils % 3.1 Glucose Level 128 Hematocrit 32.5 L Hemoglobin 10.9 L Iron Level 42 Lymphocytes # 2.0 Lymphocytes % 19.1 Magnesium Level 1.7 Mean Corpuscular Hemoglobin 29.6 Mean Corpuscular Hemoglobin Concent 33.4 Mean Corpuscular Volume 88.4 Mean Platelet Volume 10.6 H Monocytes # 0.7 Monocytes % 6.7 Neutrophils # 7.5 Neutrophils % 70.7 Nucleated Red Blood Cells # 0.0 Nucleated Red Blood Cells % 0.0 Percent Iron Saturation 19 L Platelet Count 144 Potassium Level 3.9 Red Blood Count 3.68 L Red Cell Distribution Width 14.8 H Sodium Level 147 H Total Iron Binding Capacity 221 L White Blood Count 10.7 Test 04/23/16 17:23 Bedside Glucose 138 Medications Medications Current Medications Diagnostic Test (Pha) (Accucheck) 1 ea 02 XX Last administered on 04/22/16at 02 :00; Admin Dose 1 EA; Start 04/19/16 at 02:00 Acetaminophen (Tylenol Tab) 325 mg Q4H PRN PO PAIN AND OR ELEVATED TEMP Last administered on 04/21/16at 08:48; Admin Dose 325 MG; Start 04/18/16 at 18:00 Amlodipine Besylate (Norvasc) 10 mg HS NGT Last administered on 04/22/16 21: 31; Admin Dose 10 MG; Start 04/18/16 at 21:00 Aspirin (Aspirin) 81 mg DAILY PO Last administered on 04/23/16 09:21; Admin Dose 81 MG; Start 04/19/16 at 09:00 Atorvastatin Calcium (Lipitor) 40 mg HS PO Last administered on 04/22/16 21: 32; Admin Dose 40 MG; Start 04/18/16 at 21:00 Bisacodyl (Dulcolax Supp) 10 mg DAILY PRN [place] CONSTIPATION; Start 04/18/16 at 18:00 Carvedilol (Coreg) 12.5 mg BID PO Last administered on 04/23/16 09:20; Admin Dose 12.5 MG; Start 04/18/16 at 21:00 Celecoxib (Celebrex) 200 mg DAILY PO Last administered on 04/23/16 09:16; Admin Dose 200 MG; Start 04/19/16 at 09:00 Cholecalciferol (Vitamin D) 2,000 unit DAILY PO Last administered on 09:18; Admin Dose 2,000 UNIT; Start 04/19/16 at 09:00 Donepezil HCl (Aricept) 10 mg DAILY PO Last administered on 04/23/16 09:18; Admin Dose 10 MG; Start 04/19/16 at 09:00 Hydralazine HCl (Apresoline) 50 mg Q8 PO Last administered on 04/23/16 14:09 ; Admin Dose 50 MG; Start 04/18/16 at 22:00 Hydrochlorothiazide (Hydrochlorothiazide) 25 mg DAILY PO Last administered on 04/23/16 09:21; Admin Dose 25 MG; Start 04/19/16 at 09:00 Lactulose (Enulose) 20 gm DAILY PRN PO CONSTIPATION; Start 04/18/16 at 18:00 Linagliptin (Tradjenta) 5 mg DAILY PO Last administered on 04/23/16 09:21; Admin Dose 5 MG; Start 04/19/16 at 09:00 Loperamide HCl (Imodium Cap) 2 mg QID PRN PO DIARRHEA; Start 04/18/16 at 18:00 Lorazepam (Ativan) 0.5 mg HS PO Last administered on 12/27/16at 21:32; Admin Dose 0.5 MG; Start 04/18/16 at 21:00 Lorazepam (Ativan) 1 mg Q12 PRN PO AGITATION/ANXIETY; Start 04/18/16 at 18:00 Losartan Potassium (Cozaar) 100 mg DAILY PO Last administered on 04/23/16at 09: 20; Admin Dose 100 MG; Start 04/19/16 at 09:00 Magnesium Hydroxide (Milk Of Mag) 30 ml DAILY PRN PO CONSTIPATION; Start 04/18 at 18:00 Meclizine HCl (Antivert) 25 mg DAILY PO Last administered on 04/23/16at 09:20; Admin Dose 25 MG; Start 04/19/16 at 09:00 Memantine (Namenda) 10 mg BID PO Last administered on 04/23/16at 09:18; Admin Dose 10 MG; Start 04/18/16 at 21:00 Pantoprazole (Protonix Tab) 40 mg DAILY@06 PO Last administered on 04/23/16at 05:58; Admin Dose 40 MG; Start 04/19/16 at 06:00 Sertraline HCl (Zoloft) 25 mg DAILY PO Last administered on 04/23/16at 09:20; Admin Dose 25 MG; Start 04/19/16 at 09:00 Solifenacin (Vesicare) 5 mg DAILY PO Last administered on 04/23/16at 09:18; Admin Dose 5 MG; Start 04/19/16 at 09:00 Zolpidem Tartrate (Ambien) 5 mg HS PO Last administered on 04/22/16at 21:32; Admin Dose 5 MG; Start 04/18/16 at 21:00 Miscellaneous Information 1 ea NOTE XX ; Start 04/18/16 at 18:30 Glucose (Glutose) 15 gm Q15M PRN PO DECREASED GLUCOSE; Start 04/18/16 at 18:30 Glucose (Glutose) 22.5 gm Q15M PRN PO DECREASED GLUCOSE; Start 04/18/16 at 18: 30 Dextrose (D50w Syringe) 25 ml Q15M PRN IV DECREASED GLUCOSE; Start 04/18/16 at 18:30 Dextrose (D50w Syringe) 50 ml Q15M PRN IV DECREASED GLUCOSE; Start 04/18/16 at 18:30 Glucagon (Glucagen) 1 mg Q15M PRN IM DECREASED GLUCOSE; Start 04/18/16 at 18: 30 Glucose (Glutose) 15 gm Q15M PRN BUCCAL DECREASED GLUCOSE; Start 04/18/16 at 18:30 Clonidine HCl (Catapres-Tts 1 Patch) 1 patch Q7D TRANSDERM Last administered on 04/22/16at 10:01; Admin Dose 1 PATCH; Start 04/22/16 at 09:00 Clonidine (Catapres) 0.1 mg Q8H PRN PO ELEVATED SYSTOLIC BP>150; Start at 18:30 Apixaban (Eliquis) 2.5 mg BID PO Last administered on 04/23/16at 09:16; Admin Dose 2.5 MG; Start 04/20/16 at 20:00 VANI DALAL MD Apr 23, 2016 18:27
[2016-04-23] MEDS ORDERED: MAGNESIUM SULFATE 2 GM/50 ML 50 ML IVPB SCH (18:30)
[2016-04-23] MEDS: ATORVASTATIN 40 MG TAB PO SCH (20:33)
[2016-04-23] MEDS: AMLODIPINE 10 MG TAB NGT SCH (20:33)
[2016-04-23] MEDS: LORAZEPAM 0.5 MG TAB PO SCH (23:50)
[2016-04-23] MEDS: ZOLPIDEM 5 MG TAB PO SCH (23:50)
[2016-04-24] VITALS (13 sets, daily range): BP systolic 112–158; BP diastolic 52–73; PULSE 59–78; RESP 17–20
[2016-04-24] MEDS: ACCUCHECK XX SCH (02:00)
[2016-04-24] MEDS: PANTOPRAZOLE (EC) 40 MG TAB PO SCH (05:21)
[2016-04-24] MEDS: INSULIN ASPART [NOVOLOG] 3 ML PEN SC SCH ×4 (07:31→21:00)
[2016-04-24] MEDS: ASPIRIN 81 MG TAB PO SCH (08:23)
[2016-04-24] MEDS: LOSARTAN 50 MG TAB PO SCH (08:23)
[2016-04-24] MEDS: metFORMIN 500 MG TAB PO SCH ×2 (08:23→17:32)
[2016-04-24] MEDS: SERTRALINE 50 MG TAB PO SCH (08:24)
[2016-04-24] MEDS: SOLIFENACIN 5 MG TAB PO SCH (08:24)
[2016-04-24] MEDS: CHOLECALCIFEROL 2,000 UNIT CAP PO SCH (08:24)
[2016-04-24] MEDS: HYDROCHLOROTHIAZIDE 25 MG TAB PO SCH (08:24)
[2016-04-24] MEDS: APIXABAN 5 MG TABLET PO SCH ×2 (08:24→21:54)
[2016-04-24] MEDS: CELECOXIB 200 MG CAP PO SCH (08:25)
[2016-04-24] MEDS: MEMANTINE 10 MG TAB PO SCH ×2 (08:25→21:53)
[2016-04-24] MEDS: LINAGLIPTIN 5 MG TABLET PO SCH (08:25)
[2016-04-24] MEDS: MECLIZINE 25 MG TAB PO SCH (08:25)
[2016-04-24] MEDS: DONEPEZIL 10 MG TAB PO SCH (08:25)
--- NOTE | 2016-04-24 13:42 | PN ---
Date/Time of Note Date/Time of Note DATE: 04/24/16 TIME: 13:35 Assessment/Plan VTE Prophylaxis VTE Prophylaxis Intervention: ambulation, anti-embolic stocking VTE Contraindication Reason: peripheral vascular disease Lines/Catheters IV Catheter Type (from Nrsg): Saline Lock Central line still needed: No Urinary Cath still in place: Yes Reason Cath still needed: urinary retention Assessment/Plan Chief Complaint/Hosp Course 1.Paroxismal a.fibrillation with rapid ventricular rate vs SVT. 2.HTN out of control- become hypotensive during a.fib. attack. 3.DM type 2 4.Dyslipidemia 5.AD - getting worse, with anxiety d/o 6.S/P hemicolectomy with appendectomy by HX due to of colonic cancer 7.Progressive weight loss (more than 40 lb in less than a year) 8.VDV;DVT? HX? 9.S/P cataractectomy bilateral 10.S/P falls and recent head trauma. 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 12.S/P PSVT converted to sinus rhythm by adenosine in [facility] [place]? 13.Hx of recurrent uti's 14.LEW and osteoporosis 15.Redness of t he skin of calcaneal areas. 16.Diarrhea due to of short bowel with other causes 17.Severe muscular weakness 18.Severe hearing impairment 19.Anemia of chronic disease 20.Low magnesium levels on and off 21.Low Vit "D" level 22.LVH with diastolic dysfunction. 23.Multiple bruises of extremities 24.Osteoporosis 25. S/P Fx of the right hip; s/p orif. 26.PAD 27.CVA with right weakness- improving Problems: Assessment/Plan Needs rehab rx. Cont'd Hospitalization Reason: as above. Subjective 24 Hr Interval Summary Free Text/Dictation DIfficulty to urinate with episode of sob. No cp. Called rehab. for re- evaluation to transfer to rehab. I requested a re-evaluation. Constitutional: disoriented, poor po, requiring O2, No chills, No diaphoresis, No febrile, No improved, No no complaints, No other, No requiring IVF ENT: congestion, other (hearing impairment.), No bleeding, No discharge, No dysphagia, No no complaints, No pain, No sore throat Respiratory: shortness of breath, No cough, No no complaints, No other, No pain, No pleuritic pain, No sputum, No wheezing Cardiovascular: lightheadedness, palpitations, No chest pain, No edema, No no complaints, No orthopenea, No other, No paroxysmal nocturnal dyspnea Gastrointestinal: diarrhea, passing stool, No blood, No constipation, No decreased appetite, No flatus, No nausea, No no complaints, No other, No pain, No vomiting Genitourinary: other (unabale to urinate at night. Now she did it.), No bleeding, No discharge, No dysuria, No flank pain, No hematuria, No no complaints Musculoskeletal: back pain, neck pain, other ( right weakness.) Psychological: anxiety, confusion Exam/Review of Systems Vital Signs Vitals Vital Signs Date Time Temp Pulse Resp B/P Pulse Ox O2 Delivery O2 Flow Rate FiO2 04/24/16 12:10 59 04/24/16 11:18 97.5 20 120/66 96 04/22/16 08:43 Nasal Cannula 2.0 Intake and Output 04/23/16 04/23/16 04/24/16 15:00 23:00 07:00 Intake Total 620 ml 200 ml Output Total 1050 ml 400 ml Balance -430 ml -200 ml Exam Psych: anxiety, No confusion, No depression, No nl mood/affect, No no complaints, No other, No suicidal Head: atraumatic, normocephalic, No hematomas, No lacerations, No other Eyes: EOMI, PERRL, No fundi, disc, No icteric, No nl conjunctiva, No nl lids, No nl sclera, No other ENMT: nl nasal mucosa & septum, No intubated, No mucosa pink and moist, No nl external ears & nose, No nl lips & teeth, No other, No tympanic membranes Neck: bruits, nuchal rigidity, No jvd, No masses, No non-tender, No other, No supple, No thyromegaly Respiratory: congested cough, intercostal retraction, No clear to auscultation, No crackles/rales, No diminished breath sounds, No labored breathing, No normal air movement, No other, No respirations, No tactile fremitus, No wheezing Cardiovascular: bruits, irregular rhythm, No S3, No S4, No diastolic murmur, No edema, No gallop, No jugular venous distention (JVD), No murmurs/extra sounds, No nl pulses, No other, No regular rate and rhythm, No rub, No systolic murmur Gastrointestinal: bowel sounds, nl liver, spleen, soft, No ascites, No distended, No firm, No hepatomegaly, No mass, No non-tender, No other, No rebound or guarding, No splenomegaly, No surgical scars, No tender Musculoskeletal: joint tenderness, muscle tone, muscle weakness, nl gait and stance (unable to walk without help.), other (right weakness improving. FAmily is more active by doing an exercise than the pt/ot. 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, lethargic, numbness, reflexes Skin: nl turgor (decreased.), No diaphoresis, No ecchymosis, No laceration, No other, No puncture, No rash or lesions Results Result Diagram: 04/23/1662304/23/16623 Results 24 hrs Laboratory Tests Test 04/23/16 17:23 04/23/16 21:43 04/24/16 07:28 04/24/16 11:42 Bedside Glucose 138 147 115 152 Medications Medications Current Medications Diagnostic Test (Pha) (Accucheck) 1 ea 02 XX Last administered on 04/22/16at 02 :00; Admin Dose 1 EA; Start 04/19/16 at 02:00 Acetaminophen (Tylenol Tab) 325 mg Q4H PRN PO PAIN AND OR ELEVATED TEMP Last administered on 04/21/16at 08:48; Admin Dose 325 MG; Start 04/18/16 at 18:00 Amlodipine Besylate (Norvasc) 10 mg HS NGT Last administered on 04/23/16at 20: 33; Admin Dose 10 MG; Start 04/18/16 at 21:00 Aspirin (Aspirin) 81 mg DAILY PO Last administered on 04/24/16 08:23; Admin Dose 81 MG; Start 04/19/16 at 09:00 Atorvastatin Calcium (Lipitor) 40 mg HS PO Last administered on 04/23/16at 20: 33; Admin Dose 40 MG; Start 04/18/16 at 21:00 Bisacodyl (Dulcolax Supp) 10 mg DAILY PRN [place] CONSTIPATION; Start 04/18/16 at 18:00 Carvedilol (Coreg) 12.5 mg BID PO Last administered on 04/24/16 08:25; Admin Dose 12.5 MG; Start 04/18/16 at 21:00 Celecoxib (Celebrex) 200 mg DAILY PO Last administered on 04/24/16 08:25; Admin Dose 200 MG; Start 04/19/16 at 09:00 Cholecalciferol (Vitamin D) 2,000 unit DAILY PO Last administered on 08:24; Admin Dose 2,000 UNIT; Start 04/19/16 at 09:00 Donepezil HCl (Aricept) 10 mg DAILY PO Last administered on 04/24/16 08:25; Admin Dose 10 MG; Start 04/19/16 at 09:00 Hydralazine HCl (Apresoline) 50 mg Q8 PO Last administered on 04/23/16at 14:09 ; Admin Dose 50 MG; Start 04/18/16 at 22:00 Hydrochlorothiazide (Hydrochlorothiazide) 25 mg DAILY PO Last administered on 04/24/16 08:24; Admin Dose 25 MG; Start 04/19/16 at 09:00 Lactulose (Enulose) 20 gm DAILY PRN PO CONSTIPATION; Start 04/18/16 at 18:00 Linagliptin (Tradjenta) 5 mg DAILY PO Last administered on 04/24/16 08:25; Admin Dose 5 MG; Start 04/19/16 at 09:00 Loperamide HCl (Imodium Cap) 2 mg QID PRN PO DIARRHEA; Start 04/18/16 at 18:00 Lorazepam (Ativan) 0.5 mg HS PO Last administered on 04/23/16 23:50; Admin Dose 0.5 MG; Start 04/18/16 at 21:00 Lorazepam (Ativan) 1 mg Q12 PRN PO AGITATION/ANXIETY; Start 04/18/16 at 18:00 Losartan Potassium (Cozaar) 100 mg DAILY PO Last administered on 04/24/16 08: 23; Admin Dose 100 MG; Start 04/19/16 at 09:00 Magnesium Hydroxide (Milk Of Mag) 30 ml DAILY PRN PO CONSTIPATION; Start 04/18 at 18:00 Meclizine HCl (Antivert) 25 mg DAILY PO Last administered on 04/24/16at 08:25; Admin Dose 25 MG; Start 04/19/16 at 09:00 Memantine (Namenda) 10 mg BID PO Last administered on 04/24/16at 08:25; Admin Dose 10 MG; Start 04/18/16 at 21:00 Pantoprazole (Protonix Tab) 40 mg DAILY@06 PO Last administered on 04/24/16at 05:21; Admin Dose 40 MG; Start 04/19/16 at 06:00 Sertraline HCl (Zoloft) 25 mg DAILY PO Last administered on 04/24/16at 08:24; Admin Dose 25 MG; Start 04/19/16 at 09:00 Solifenacin (Vesicare) 5 mg DAILY PO Last administered on 04/24/16at 08:24; Admin Dose 5 MG; Start 04/19/16 at 09:00 Zolpidem Tartrate (Ambien) 5 mg HS PO Last administered on 04/23/16at 23:50; Admin Dose 5 MG; Start 04/18/16 at 21:00 Miscellaneous Information 1 ea NOTE XX ; Start 04/18/16 at 18:30 Glucose (Glutose) 15 gm Q15M PRN PO DECREASED GLUCOSE; Start 04/18/16 at 18:30 Glucose (Glutose) 22.5 gm Q15M PRN PO DECREASED GLUCOSE; Start 04/18/16 at 18: 30 Dextrose (D50w Syringe) 25 ml Q15M PRN IV DECREASED GLUCOSE; Start 04/18/16 at 18:30 Dextrose (D50w Syringe) 50 ml Q15M PRN IV DECREASED GLUCOSE; Start 04/18/16 at 18:30 Glucagon (Glucagen) 1 mg Q15M PRN IM DECREASED GLUCOSE; Start 04/18/16 at 18: 30 Glucose (Glutose) 15 gm Q15M PRN BUCCAL DECREASED GLUCOSE; Start 04/18/16 at 18:30 Clonidine HCl (Catapres-Tts 1 Patch) 1 patch Q7D TRANSDERM Last administered on 04/22/16at 10:01; Admin Dose 1 PATCH; Start 04/22/16 at 09:00 Clonidine (Catapres) 0.1 mg Q8H PRN PO ELEVATED SYSTOLIC BP>150; Start at 18:30 Apixaban 2.5 mg 2.5 mg BID PO Last administered on 04/24/16at 08:24; Admin Dose 2.5 MG; Start 04/20/16 at 20:00 Magnesium Sulfate (Magnesium Sulfate 2 Gm/50 ml) 50 ml @ 25 mls/hr ONCE IVPB Last administered on 04/23/16at 21:45; Admin Dose 25 MLS/HR; Start 04/23/16 at 18:30; Stop 04/26/16 at 09:00 VANI DALAL MD Apr 24, 2016 13:42
[2016-04-24] MEDS: ATORVASTATIN 40 MG TAB PO SCH (21:53)
[2016-04-24] MEDS: LORAZEPAM 0.5 MG TAB PO SCH (21:54)
[2016-04-24] MEDS: ZOLPIDEM 5 MG TAB PO SCH (21:54)
[2016-04-24] MEDS: AMLODIPINE 10 MG TAB NGT SCH (21:54)
[2016-04-25] VITALS (12 sets, daily range): BP systolic 123–157; BP diastolic 60–72; PULSE 67–90; RESP 19–22
[2016-04-25] MEDS: ACCUCHECK XX SCH (02:00)
[2016-04-25] MEDS: PANTOPRAZOLE (EC) 40 MG TAB PO SCH (05:56)
[2016-04-25] MEDS: ACETAMINOPHEN 325 MG TAB PO PRN (08:24)
[2016-04-25] MEDS: metFORMIN 500 MG TAB PO SCH ×2 (08:30→17:07)
[2016-04-25] MEDS: INSULIN ASPART [NOVOLOG] 3 ML PEN SC SCH ×4 (08:32→22:24)
[2016-04-25] MEDS: APIXABAN 5 MG TABLET PO SCH ×2 (09:37→22:16)
[2016-04-25] MEDS: LINAGLIPTIN 5 MG TABLET PO SCH (09:37)
[2016-04-25] MEDS: CHOLECALCIFEROL 2,000 UNIT CAP PO SCH (09:38)
[2016-04-25] MEDS: ASPIRIN 81 MG TAB PO SCH (09:38)
[2016-04-25] MEDS: SOLIFENACIN 5 MG TAB PO SCH (09:38)
[2016-04-25] MEDS: CELECOXIB 200 MG CAP PO SCH (09:38)
[2016-04-25] MEDS: LOSARTAN 50 MG TAB PO SCH (09:39)
[2016-04-25] MEDS: SERTRALINE 50 MG TAB PO SCH (09:40)
[2016-04-25] MEDS: MEMANTINE 10 MG TAB PO SCH ×2 (09:40→22:15)
[2016-04-25] MEDS: MECLIZINE 25 MG TAB PO SCH (09:40)
[2016-04-25] MEDS: HYDROCHLOROTHIAZIDE 25 MG TAB PO SCH (09:41)
[2016-04-25] MEDS: DONEPEZIL 10 MG TAB PO SCH (09:52)
--- NOTE | 2016-04-25 19:24 | PN ---
Date/Time of Note Date/Time of Note DATE: 04/25/16 TIME: 19:13 Assessment/Plan VTE Prophylaxis VTE Prophylaxis Intervention: ambulation, anti-embolic stocking VTE Contraindication Reason: peripheral vascular disease Lines/Catheters IV Catheter Type (from Nrsg): Saline Lock Central line still needed: No Urinary Cath still in place: No Assessment/Plan Chief Complaint/Hosp Course 1.Paroxismal a.fibrillation with rapid ventricular rate vs SVT. 2.HTN out of control- become hypotensive during a.fib. attack. 3.DM type 2 4.Dyslipidemia 5.AD - getting worse, with anxiety d/o 6.S/P hemicolectomy with appendectomy by HX due to of colonic cancer 7.Progressive weight loss (more than 40 lb in less than a year) 8.VDV;DVT? HX? 9.S/P cataractectomy bilateral 10.S/P falls and recent head trauma. 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 12.S/P PSVT converted to sinus rhythm by adenosine in [facility] [place]? 13.Hx of recurrent uti's 14.LEW and osteoporosis 15.Redness of t he skin of calcaneal areas. 16.Diarrhea due to of short bowel with other causes 17.Severe muscular weakness 18.Severe hearing impairment 19.Anemia of chronic disease 20.Low magnesium levels on and off 21.Low Vit "D" level 22.LVH with diastolic dysfunction. 23.Multiple bruises of extremities 24.Osteoporosis 25. S/P Fx of the right hip; s/p orif. 26.PAD 27.CVA with right weakness- improving Problems: Cont'd Hospitalization Reason: pt/ot. Rehab refused to take back. Will plan SNF. Subjective 24 Hr Interval Summary Free Text/Dictation Movements of my right upper and lower extremities are improving. I can 't get up but I feel I am getting more confident that I will be able to walk. I am more forgetful. Constitutional: disoriented, improved, poor po, requiring O2, No chills, No diaphoresis, No febrile, No no complaints, No other, No requiring IVF Eyes: redness, visual change, No discharge, No no complaints, No other, No pain ENT: congestion, No bleeding, No discharge, No dysphagia, No no complaints, No other, No pain , No sore throat Respiratory: cough, pain, shortness of breath, No no complaints, No other, No pleuritic pain, No sputum, No wheezing Cardiovascular: chest pain, orthopenea, palpitations, paroxysmal nocturnal dyspnea Gastrointestinal: decreased appetite, diarrhea, pain, No blood, No constipation, No flatus, No nausea, No no complaints, No other, No passing stool, No vomiting Genitourinary: flank pain, No bleeding, No discharge, No dysuria, No hematuria, No no complaints, No other Musculoskeletal: back pain, bone/joint pain, neck pain, No no complaints, No other, No restricted range of motion, No swelling Skin: bruising, pruritis, skin lesions, No erythema, No laceration, No no complaints, No other, No rash Neurologic: dizziness, headache, No confusion, No focal-weakness, No no complaints, No other, No seizure, No syncope Psychological: anxiety, depression, other (memory impairment.) Immunologic: rhinitis Exam/Review of Systems Vital Signs Vitals Vital Signs Date Time Temp Pulse Resp B/P Pulse Ox O2 Delivery O2 Flow Rate FiO2 04/25/16 16:28 99.7 69 22 123/60 94 04/25/16 04:00 Room Air 04/22/16 08:43 2.0 Intake and Output 04/24/16 04/24/16 04/25/16 15:00 23:00 07:00 Intake Total 720 ml 300 ml Output Total 250 ml Balance 470 ml 300 ml Exam Constitutional: alert, distress, oriented (disoriented.) Psych: anxiety (forgetfulnesds.), confusion, depression, other, No nl mood/affect, No no complaints, No suicidal Head: atraumatic Eyes: EOMI, PERRL, nl lids, No fundi, disc, No icteric, No nl conjunctiva, No nl sclera, No other ENMT: mucosa pink and moist, nl lips & teeth, tympanic membranes, No intubated, No nl external ears & nose, No nl nasal mucosa & septum, No other Neck: bruits, jvd, thyromegaly, No masses, No non-tender, No nuchal rigidity, No other, No supple Respiratory: congested cough, diminished breath sounds, respirations, No clear to auscultation, No crackles/rales, No intercostal retraction, No labored breathing, No normal air movement, No other, No tactile fremitus, No wheezing Cardiovascular: bruits, murmurs/extra sounds, nl pulses, systolic murmur, No S3, No S4, No diastolic murmur, No edema, No gallop, No irregular rhythm, No jugular venous distention (JVD), No other, No regular rate and rhythm, No rub Gastrointestinal: bowel sounds, distended, nl liver, spleen, soft, No ascites, No firm, No hepatomegaly, No mass, No non-tender, No other, No rebound or guarding, No splenomegaly, No surgical scars, No tender Genitourinary - Female: CVA tenderness Musculoskeletal: joint tenderness, muscle tone, muscle weakness, No nl extremities to inspection, No nl gait and stance, No other, No range of motion, No spine non-tender, No swelling Extremities: calf tenderness 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 Skin: diaphoresis, ecchymosis, laceration, No nl turgor, No other, No puncture, No rash or lesions Lymph: nl lymph nodes Results Result Diagram: 04/23/1662304/23/16623 Results 24 hrs Laboratory Tests Test 04/24/16 19:54 04/25/16 08:27 04/25/16 12:16 04/25/16 17:01 Bedside Glucose 148 158 120 141 Medications Medications Current Medications Diagnostic Test (Pha) (Accucheck) 1 ea 02 XX Last administered on 04/22/16at 02 :00; Admin Dose 1 EA; Start 04/19/16 at 02:00 Acetaminophen (Tylenol Tab) 325 mg Q4H PRN PO PAIN AND OR ELEVATED TEMP Last administered on 04/25/16at 08:24; Admin Dose 325 MG; Start 04/18/16 at 18:00 Amlodipine Besylate (Norvasc) 10 mg HS NGT Last administered on 04/24/16at 21: 54; Admin Dose 10 MG; Start 04/18/16 at 21:00 Aspirin (Aspirin) 81 mg DAILY PO Last administered on 04/25/16at 09:38; Admin Dose 81 MG; Start 04/19/16 at 09:00 Atorvastatin Calcium (Lipitor) 40 mg HS PO Last administered on 04/24/16at 21: 53; Admin Dose 40 MG; Start 04/18/16 at 21:00 Bisacodyl (Dulcolax Supp) 10 mg DAILY PRN [place] CONSTIPATION; Start 04/18/16 at 18:00 Carvedilol (Coreg) 12.5 mg BID PO Last administered on 04/25/16 09:37; Admin Dose 12.5 MG; Start 04/18/16 at 21:00 Celecoxib (Celebrex) 200 mg DAILY PO Last administered on 04/25/16 09:38; Admin Dose 200 MG; Start 04/19/16 at 09:00 Cholecalciferol (Vitamin D) 2,000 unit DAILY PO Last administered on 09:38; Admin Dose 2,000 UNIT; Start 04/19/16 at 09:00 Donepezil HCl (Aricept) 10 mg DAILY PO Last administered on 04/25/16 09:52; Admin Dose 10 MG; Start 04/19/16 at 09:00 Hydralazine HCl (Apresoline) 50 mg Q8 PO Last administered on 04/25/16 13:56 ; Admin Dose 50 MG; Start 04/18/16 at 22:00 Hydrochlorothiazide (Hydrochlorothiazide) 25 mg DAILY PO Last administered on 04/25/16 09:41; Admin Dose 25 MG; Start 04/19/16 at 09:00 Lactulose (Enulose) 20 gm DAILY PRN PO CONSTIPATION; Start 04/18/16 at 18:00 Linagliptin (Tradjenta) 5 mg DAILY PO Last administered on 04/25/16 09:37; Admin Dose 5 MG; Start 04/19/16 at 09:00 Loperamide HCl (Imodium Cap) 2 mg QID PRN PO DIARRHEA; Start 04/18/16 at 18:00 Lorazepam (Ativan) 0.5 mg HS PO Last administered on 04/24/16at 21:54; Admin Dose 0.5 MG; Start 04/18/16 at 21:00 Lorazepam (Ativan) 1 mg Q12 PRN PO AGITATION/ANXIETY; Start 04/18/16 at 18:00 Losartan Potassium (Cozaar) 100 mg DAILY PO Last administered on 04/25/16 09: 39; Admin Dose 100 MG; Start 04/19/16 at 09:00 Magnesium Hydroxide (Milk Of Mag) 30 ml DAILY PRN PO CONSTIPATION; Start 04/18 at 18:00 Meclizine HCl (Antivert) 25 mg DAILY PO Last administered on 04/25/16at 09:40; Admin Dose 25 MG; Start 04/19/16 at 09:00 Memantine (Namenda) 10 mg BID PO Last administered on 04/25/16at 09:40; Admin Dose 10 MG; Start 04/18/16 at 21:00 Pantoprazole (Protonix Tab) 40 mg DAILY@06 PO Last administered on 04/25/16at 05:56; Admin Dose 40 MG; Start 04/19/16 at 06:00 Sertraline HCl (Zoloft) 25 mg DAILY PO Last administered on 04/25/16at 09:40; Admin Dose 25 MG; Start 04/19/16 at 09:00 Solifenacin (Vesicare) 5 mg DAILY PO Last administered on 04/25/16at 09:38; Admin Dose 5 MG; Start 04/19/16 at 09:00 Zolpidem Tartrate (Ambien) 5 mg HS PO Last administered on 04/24/16at 21:54; Admin Dose 5 MG; Start 04/18/16 at 21:00 Miscellaneous Information 1 ea NOTE XX ; Start 04/18/16 at 18:30 Glucose (Glutose) 15 gm Q15M PRN PO DECREASED GLUCOSE; Start 04/18/16 at 18:30 Glucose (Glutose) 22.5 gm Q15M PRN PO DECREASED GLUCOSE; Start 04/18/16 at 18: 30 Dextrose (D50w Syringe) 25 ml Q15M PRN IV DECREASED GLUCOSE; Start 04/18/16 at 18:30 Dextrose (D50w Syringe) 50 ml Q15M PRN IV DECREASED GLUCOSE; Start 04/18/16 at 18:30 Glucagon (Glucagen) 1 mg Q15M PRN IM DECREASED GLUCOSE; Start 04/18/16 at 18: 30 Glucose (Glutose) 15 gm Q15M PRN BUCCAL DECREASED GLUCOSE; Start 04/18/16 at 18:30 Clonidine HCl (Catapres-Tts 1 Patch) 1 patch Q7D TRANSDERM Last administered on 04/22/16at 10:01; Admin Dose 1 PATCH; Start 04/22/16 at 09:00 Clonidine (Catapres) 0.1 mg Q8H PRN PO ELEVATED SYSTOLIC BP>150; Start at 18:30 Apixaban (Eliquis) 2.5 mg BID PO Last administered on 04/25/16at 09:37; Admin Dose 2.5 MG; Start 04/20/16 at 20:00 VANI DALAL MD Apr 25, 2016 19:23
[2016-04-25] MEDS: AMLODIPINE 10 MG TAB NGT SCH (22:15)
[2016-04-25] MEDS: ZOLPIDEM 5 MG TAB PO SCH (22:16)
[2016-04-25] MEDS: ATORVASTATIN 40 MG TAB PO SCH (22:16)
[2016-04-25] MEDS: LORAZEPAM 0.5 MG TAB PO SCH (22:16)
[2016-04-26] VITALS (13 sets, daily range): BP systolic 89–137; BP diastolic 43–63; PULSE 59–85; RESP 16–22
[2016-04-26] MEDS: ACCUCHECK XX SCH (02:00)
[2016-04-26] MEDS: PANTOPRAZOLE (EC) 40 MG TAB PO SCH (06:36)
[2016-04-26 07:37] LABS: CREATININE 1.4 mg/dl (0.44-1.00)
[2016-04-26] MEDS: INSULIN ASPART [NOVOLOG] 3 ML PEN SC SCH ×4 (08:00→21:20)
[2016-04-26] MEDS: DONEPEZIL 10 MG TAB PO SCH (09:27)
[2016-04-26] MEDS: APIXABAN 5 MG TABLET PO SCH ×2 (09:27→21:03)
[2016-04-26] MEDS: SERTRALINE 50 MG TAB PO SCH (09:27)
[2016-04-26] MEDS: SOLIFENACIN 5 MG TAB PO SCH (09:27)
[2016-04-26] MEDS: HYDROCHLOROTHIAZIDE 25 MG TAB PO SCH (09:27)
[2016-04-26] MEDS: CHOLECALCIFEROL 2,000 UNIT CAP PO SCH (09:27)
[2016-04-26] MEDS: MEMANTINE 10 MG TAB PO SCH ×2 (09:28→21:02)
[2016-04-26] MEDS: ASPIRIN 81 MG TAB PO SCH (09:28)
[2016-04-26] MEDS: MECLIZINE 25 MG TAB PO SCH (09:28)
[2016-04-26] MEDS: metFORMIN 500 MG TAB PO SCH (09:28)
[2016-04-26] MEDS: LINAGLIPTIN 5 MG TABLET PO SCH (09:28)
[2016-04-26] MEDS: CELECOXIB 200 MG CAP PO SCH (09:28)
[2016-04-26] MEDS: LOSARTAN 50 MG TAB PO SCH (09:29)
--- NOTE | 2016-04-26 18:28 | PN ---
Date/Time of Note Date/Time of Note DATE: 04/26/16 TIME: 18:23 Assessment/Plan VTE Prophylaxis VTE Prophylaxis Intervention: ambulation, anti-embolic stocking VTE Contraindication Reason: peripheral vascular disease Lines/Catheters IV Catheter Type (from Nrsg): [place] Central line still needed: No Urinary Cath still in place: No Reason Cath still needed: urinary retention Assessment/Plan Chief Complaint/Hosp Course 1.Paroxismal a.fibrillation with rapid ventricular rate vs SVT. 2.HTN out of control- become hypotensive during a.fib. attack. 3.DM type 2 4.Dyslipidemia 5.AD - getting worse, with anxiety d/o 6.S/P hemicolectomy with appendectomy by HX due to of colonic cancer 7.Progressive weight loss (more than 40 lb in less than a year) 8.VDV;DVT? HX? 9.S/P cataractectomy bilateral 10.S/P falls and recent head trauma. 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 12.S/P PSVT converted to sinus rhythm by adenosine in [facility] [place] 2012? 13.Hx of recurrent uti's 14.LEW and osteoporosis 15.Redness of t he skin of calcaneal areas. 16.Diarrhea due to of short bowel with other causes 17.Severe muscular weakness 18.Severe hearing impairment 19.Anemia of chronic disease 20.Low magnesium levels on and off 21.Low Vit "D" level 22.LVH with diastolic dysfunction. 23.Multiple bruises of extremities 24.Osteoporosis 25. S/P Fx of the right hip; s/p orif. 26.PAD 27.CVA with right weakness- improving Problems: Cont'd Hospitalization Reason: Cont. pt/ot; plan snf vs home. Subjective 24 Hr Interval Summary Free Text/Dictation Sleepy, abusable, forgetful with improving right sided upper and lower extremity weakness. Constitutional: disoriented, poor po, requiring O2, No chills, No diaphoresis, No febrile, No improved, No no complaints, No other, No requiring IVF Eyes: No discharge, No no complaints, No other, No pain, No redness, No visual change ENT: dysphagia, No bleeding, No congestion, No discharge, No no complaints, No other, No pain , No sore throat Respiratory: No cough, No no complaints, No other, No pain, No pleuritic pain, No shortness of breath, No sputum, No wheezing Cardiovascular: palpitations, paroxysmal nocturnal dyspnea, No chest pain, No edema, No lightheadedness, No no complaints, No orthopenea , No other Gastrointestinal: diarrhea, flatus, passing stool, No blood, No constipation, No decreased appetite, No nausea, No no complaints , No other, No pain, No vomiting Genitourinary: dysuria, No bleeding, No discharge, No flank pain, No hematuria, No no complaints, No other Musculoskeletal: back pain, bone/joint pain, No neck pain, No no complaints, No other, No restricted range of motion, No swelling Skin: No bruising, No erythema, No laceration, No no complaints, No other, No pruritis, No rash, No skin lesions Neurologic: dizziness, headache, No confusion, No focal-weakness, No no complaints, No other, No seizure, No syncope Endocrine: No dry skin, No no complaints, No other, No polydypsia, No polyuria , No temp intolerance Lymphatic: No adenopathy, No lymphadema, No no complaints, No other, No tender nodes Psychological: anxiety, other (forgetful.), No confusion, No depression, No nl mood/affect, No no complaints, No suicidal Immunologic: No immunodeficiency, No no complaints, No other, No pruritis, No rhinitis, No urticaria Exam/Review of Systems Vital Signs Vitals Vital Signs Date Time Temp Pulse Resp B/P Pulse Ox O2 Delivery O2 Flow Rate FiO2 04/26/16 16:30 82 18 95/52 Room Air 04/26/16 15:47 98.9 93 04/22/16 08:43 2.0 Intake and Output 04/25/16 04/25/16 04/26/16 15:00 23:00 07:00 Intake Total 840 ml 350 ml Output Total 1300 ml 750 ml Balance -460 ml -400 ml Exam Constitutional: oriented (x 2; not in time.), well developed, No alert, No distress, No frail, No non-verbal, No obese, No other Psych: anxiety, No confusion, No depression, No nl mood/affect, No no complaints, No other, No suicidal Head: atraumatic, No hematomas, No lacerations, No normocephalic, No other Eyes: EOMI, PERRL, nl conjunctiva (pale.), nl lids, No fundi, disc, No icteric, No nl sclera, No other ENMT: No intubated, No mucosa pink and moist, No nl external ears & nose, No nl lips & teeth, No nl nasal mucosa & septum, No other, No tympanic membranes Neck: No bruits, No jvd, No masses, No non-tender, No nuchal rigidity, No other , No supple, No thyromegaly Respiratory: No clear to auscultation, No congested cough, No crackles/rales, No diminished breath sounds, No intercostal retraction, No labored breathing, No normal air movement, No other, No respirations, No tactile fremitus, No wheezing Cardiovascular: bruits, regular rate and rhythm, systolic murmur, No S3, No S4, No diastolic murmur, No edema, No gallop, No irregular rhythm, No jugular venous distention (JVD), No murmurs/extra sounds, No nl pulses, No other, No rub Gastrointestinal: non-tender, No ascites, No bowel sounds, No distended, No firm, No hepatomegaly, No mass , No nl liver, spleen, No other, No rebound or guarding, No soft, No splenomegaly, No surgical scars, No tender Musculoskeletal: joint tenderness, muscle tone, muscle weakness, No nl extremities to inspection, No nl gait and stance, No other, No range of motion, No spine non-tender, No swelling Extremities: No calf tenderness, No clubbing, No cyanosis, No edema, No normal pulses, No other, No palpable cord, No pitting pedal edema, No tenderness Neurological: [employer] II-XII intact, confused, focal weakness (right hemiplegia.) , lethargic, numbness Results Result Diagram: 04/23/16 0624 04/26/16 0643 Results 24 hrs Laboratory Tests Test 04/25/16 22:19 04/26/16 06:43 04/26/16 08:10 04/26/16 11:22 Bedside Glucose 211 118 198 Blood Urea Nitrogen 45 H Creatinine 1.40 H Test 04/26/16 16:58 Bedside Glucose 120 Medications Medications Current Medications Diagnostic Test (Pha) (Accucheck) XX Last administered on 04/22/16at 02 :00; Admin Dose 1 EA; Start 04/19/16 at 02:00 Acetaminophen (Tylenol Tab) 325 mg Q4H PRN PO PAIN AND OR ELEVATED TEMP Last administered on 04/25/16 08:24; Admin Dose 325 MG; Start 04/18/16 at 18:00 Amlodipine Besylate (Norvasc) 10 mg HS NGT Last administered on 04/25/16 22: 15; Admin Dose 10 MG; Start 04/18/16 at 21:00 Aspirin (Aspirin) 81 mg DAILY PO Last administered on 04/26/16 09:28; Admin Dose 81 MG; Start 04/19/16 at 09:00 Atorvastatin Calcium (Lipitor) 40 mg HS PO Last administered on 04/25/16 22: 16; Admin Dose 40 MG; Start 04/18/16 at 21:00 Bisacodyl (Dulcolax Supp) 10 mg DAILY PRN [place] CONSTIPATION; Start 04/18/16 at 18:00 Carvedilol (Coreg) 12.5 mg BID PO Last administered on 04/26/16 09:28; Admin Dose 12.5 MG; Start 04/18/16 at 21:00 Celecoxib (Celebrex) 200 mg DAILY PO Last administered on 04/26/16 09:28; Admin Dose 200 MG; Start 04/19/16 at 09:00 Cholecalciferol (Vitamin D) 2,000 unit DAILY PO Last administered on 09:27; Admin Dose 2,000 UNIT; Start 04/19/16 at 09:00 Donepezil HCl (Aricept) 10 mg DAILY PO Last administered on 04/26/16 09:27; Admin Dose 10 MG; Start 04/19/16 at 09:00 Hydralazine HCl (Apresoline) 50 mg Q8 PO Last administered on 04/26/16 13:48 ; Admin Dose 50 MG; Start 04/18/16 at 22:00 Hydrochlorothiazide (Hydrochlorothiazide) 25 mg DAILY PO Last administered on 04/26/16 09:27; Admin Dose 25 MG; Start 04/19/16 at 09:00 Lactulose (Enulose) 20 gm DAILY PRN PO CONSTIPATION; Start 04/18/16 at 18:00 Linagliptin (Tradjenta) 5 mg DAILY PO Last administered on 04/26/16 09:28; Admin Dose 5 MG; Start 04/19/16 at 09:00 Loperamide HCl (Imodium Cap) 2 mg QID PRN PO DIARRHEA; Start 04/18/16 at 18:00 Lorazepam (Ativan) 0.5 mg HS PO Last administered on 04/25/16at 22:16; Admin Dose 0.5 MG; Start 04/18/16 at 21:00 Lorazepam (Ativan) 1 mg Q12 PRN PO AGITATION/ANXIETY; Start 04/18/16 at 18:00 Losartan Potassium (Cozaar) 100 mg DAILY PO Last administered on 04/26/16at 09: 29; Admin Dose 100 MG; Start 04/19/16 at 09:00 Magnesium Hydroxide (Milk Of Mag) 30 ml DAILY PRN PO CONSTIPATION; Start 04/18 at 18:00 Meclizine HCl (Antivert) 25 mg DAILY PO Last administered on 04/26/16at 09:28; Admin Dose 25 MG; Start 04/19/16 at 09:00 Memantine (Namenda) 10 mg BID PO Last administered on 04/26/16at 09:28; Admin Dose 10 MG; Start 04/18/16 at 21:00 Pantoprazole (Protonix Tab) 40 mg DAILY@06 PO Last administered on 04/26/16at 06:36; Admin Dose 40 MG; Start 04/19/16 at 06:00 Sertraline HCl (Zoloft) 25 mg DAILY PO Last administered on 04/26/16at 09:27; Admin Dose 25 MG; Start 04/19/16 at 09:00 Solifenacin (Vesicare) 5 mg DAILY PO Last administered on 04/26/16at 09:27; Admin Dose 5 MG; Start 04/19/16 at 09:00 Zolpidem Tartrate (Ambien) 5 mg HS PO Last administered on 04/25/16 22:16; Admin Dose 5 MG; Start 04/18/16 at 21:00 Miscellaneous Information 1 ea NOTE XX ; Start 04/18/16 at 18:30 Glucose (Glutose) 15 gm Q15M PRN PO DECREASED GLUCOSE; Start 04/18/16 at 18:30 Glucose (Glutose) 22.5 gm Q15M PRN PO DECREASED GLUCOSE; Start 04/18/16 at 18: 30 Dextrose (D50w Syringe) 25 ml Q15M PRN IV DECREASED GLUCOSE; Start 04/18/16 at 18:30 Dextrose (D50w Syringe) 50 ml Q15M PRN IV DECREASED GLUCOSE; Start 04/18/16 at 18:30 Glucagon (Glucagen) 1 mg Q15M PRN IM DECREASED GLUCOSE; Start 04/18/16 at 18: 30 Glucose (Glutose) 15 gm Q15M PRN BUCCAL DECREASED GLUCOSE; Start 04/18/16 at 18:30 Clonidine HCl (Catapres-Tts 1 Patch) 1 patch Q7D TRANSDERM Last administered on 04/22/16at 10:01; Admin Dose 1 PATCH; Start 04/22/16 at 09:00 Clonidine (Catapres) 0.1 mg Q8H PRN PO ELEVATED SYSTOLIC BP>150; Start at 18:30 Apixaban (Eliquis) 2.5 mg BID PO Last administered on 04/26/16at 09:27; Admin Dose 2.5 MG; Start 04/20/16 at 20:00 VANI DALAL MD Apr 26, 2016 18:27
[2016-04-26] MEDS: AMLODIPINE 10 MG TAB NGT SCH (21:02)
[2016-04-26] MEDS: ZOLPIDEM 5 MG TAB PO SCH (21:02)
[2016-04-26] MEDS: LORAZEPAM 0.5 MG TAB PO SCH (21:02)
[2016-04-26] MEDS: ATORVASTATIN 40 MG TAB PO SCH (21:03)
[2016-04-27] VITALS (13 sets, daily range): BP systolic 91–132; BP diastolic 49–63; PULSE 58–77; RESP 15–18
[2016-04-27] MEDS: ACCUCHECK XX SCH (02:00)
[2016-04-27] MEDS: PANTOPRAZOLE (EC) 40 MG TAB PO SCH (06:25)
[2016-04-27 07:01] LABS: BASOPHILS % 0.3 % (0.0-2.0); EOSINOPHILS # 0.3 10^3/ul (0.0-0.5); EOSINOPHILS % 3.2 % (0.0-7.0); HEMATOCRIT 30.9 % (37.0-47.0); HEMOGLOBIN 10.3 g/dl (12.0-16.0); LYMPHOCYTES # 2.7 10^3/ul (0.8-2.9); MEAN CORPUSCULAR HEMOGLOBIN 29.3 pg (29.0-33.0); MEAN CORPUSCULAR HGB CONC 33.2 g/dl (32.0-37.0); MEAN CORPUSCULAR VOLUME 88.3 fl (82.0-101.0); MEAN PLATELET VOLUME 10.7 fl (7.4-10.4); MONOCYTE # 0.9 10^3/ul (0.3-0.9); MONOCYTES % 8.3 % (0.0-11.0); NEUTROPHIL # 6.4 10^3/ul (1.6-7.5); NEUTROPHILS % 62.2 % (39.0-77.0); PLATELET COUNT 138 10^3/UL (140-440); RED CELL DISTRIBUTION WIDTH 14.5 % (11.5-14.5); UNCORRECTED WBC 10.2 10^3/ul (4.8-10.8); WHITE BLOOD COUNT 10.2 10^3/ul (4.8-10.8)
[2016-04-27 07:13] LABS: ALBUMIN 3.8 g/dl (3.3-4.9)
[2016-04-27 07:14] LABS: POTASSIUM 4.2 mmol/L (3.5-5.1)
[2016-04-27 07:16] LABS: ALBUMIN/GLOBULIN RATIO 1.18; BILIRUBIN,INDIRECT 0.4 mg/dl (0-1.1); BILIRUBIN,TOTAL 0.4 mg/dl (0.2-1.3); CREATININE 1.31 mg/dl (0.44-1.00)
[2016-04-27 07:17] LABS: CALCIUM 9.4 mg/dl (8.4-10.2); MAGNESIUM 1.4 mg/dl (1.7-2.5)
[2016-04-27 07:20] LABS: CONDITION 1
[2016-04-27 07:29] LABS: IRON 34 ug/dl (35-150)
[2016-04-27 07:38] LABS: TOTAL IRON BINDING CAPACITY 216 ug/dl (241-421)
[2016-04-27] MEDS: INSULIN ASPART [NOVOLOG] 3 ML PEN SC SCH ×4 (08:00→20:58)
[2016-04-27] MEDS: HYDROCHLOROTHIAZIDE 25 MG TAB PO SCH (08:58)
[2016-04-27] MEDS: MEMANTINE 10 MG TAB PO SCH ×2 (08:58→20:55)
[2016-04-27] MEDS: ASPIRIN 81 MG TAB PO SCH (08:59)
[2016-04-27] MEDS: APIXABAN 5 MG TABLET PO SCH ×2 (08:59→20:55)
[2016-04-27] MEDS: MECLIZINE 25 MG TAB PO SCH (08:59)
[2016-04-27] MEDS: LOSARTAN 50 MG TAB PO SCH (08:59)
[2016-04-27] MEDS: LINAGLIPTIN 5 MG TABLET PO SCH (08:59)
[2016-04-27] MEDS: CHOLECALCIFEROL 2,000 UNIT CAP PO SCH (08:59)
[2016-04-27] MEDS: SOLIFENACIN 5 MG TAB PO SCH (08:59)
[2016-04-27] MEDS: SERTRALINE 50 MG TAB PO SCH (08:59)
[2016-04-27] MEDS: DONEPEZIL 10 MG TAB PO SCH (09:00)
[2016-04-27] MEDS: CELECOXIB 200 MG CAP PO SCH (09:00)
[2016-04-27] MEDS: metFORMIN 500 MG TAB PO SCH (17:04)
--- NOTE | 2016-04-27 19:28 | PN ---
Date/Time of Note Date/Time of Note DATE: 04/27/16 TIME: 19:23 Assessment/Plan VTE Prophylaxis VTE Prophylaxis Intervention: ambulation, anti-embolic stocking, other (pt/ot and gate training.) VTE Contraindication Reason: peripheral vascular disease Lines/Catheters IV Catheter Type (from Nrsg): Peripheral IV Central line still needed: No Urinary Cath still in place: No Assessment/Plan Chief Complaint/Hosp Course 1.Paroxismal a.fibrillation with rapid ventricular rate vs SVT. 2.HTN out of control- become hypotensive during a.fib. attack. 3.DM type 2 4.Dyslipidemia 5.AD - getting worse, with anxiety d/o 6.S/P hemicolectomy with appendectomy by HX due to of colonic cancer 7.Progressive weight loss (more than 40 lb in less than a year) 8.VDV;DVT? HX? 9.S/P cataractectomy bilateral 10.S/P falls and recent head trauma. 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 12.S/P PSVT converted to sinus rhythm by adenosine in [facility] [place]? 13.Hx of recurrent uti's 14.LEW and osteoporosis 15.Redness of t he skin of calcaneal areas. 16.Diarrhea due to of short bowel with other causes 17.Severe muscular weakness 18.Severe hearing impairment 19.Anemia of chronic disease 20.Low magnesium levels on and off 21.Low Vit "D" level 22.LVH with diastolic dysfunction. 23.Multiple bruises of extremities 24.Osteoporosis 25. S/P Fx of the right hip; s/p orif. 26.PAD 27.CVA with right weakness- improving Low MG; Iron. Problems: Cont'd Hospitalization Reason: PT/ot. Subjective 24 Hr Interval Summary Free Text/Dictation I am forgetful. No cp. No falls. Appetite improved. Unable to get up without 2 peoples help. Constitutional: disoriented, requiring O2, No chills, No diaphoresis, No febrile, No improved, No no complaints, No other, No poor po, No requiring IVF Eyes: No discharge, No no complaints, No other, No pain, No redness, No visual change ENT: No bleeding, No congestion, No discharge, No dysphagia, No no complaints, No other, No pain, No sore throat Respiratory: shortness of breath, No cough, No no complaints, No other, No pain, No pleuritic pain, No sputum, No wheezing Cardiovascular: lightheadedness, orthopenea, palpitations, No chest pain, No edema, No no complaints, No other, No paroxysmal nocturnal dyspnea Gastrointestinal: diarrhea, flatus, pain, passing stool, No blood, No constipation, No decreased appetite, No nausea, No no complaints , No other, No vomiting Genitourinary: flank pain, No bleeding, No discharge, No dysuria, No hematuria, No no complaints, No other Musculoskeletal: bone/joint pain, No back pain, No neck pain, No no complaints, No other, No restricted range of motion, No swelling Neurologic: confusion, dizziness, headache, other (Right hemiplegia improving.), No focal-weakness, No no complaints, No seizure, No syncope Psychological: anxiety Exam/Review of Systems Vital Signs Vitals Vital Signs Date Time Temp Pulse Resp B/P Pulse Ox O2 Delivery O2 Flow Rate FiO2 04/27/16 16:37 58 04/27/16 16:00 98.4 18 100/49 93 04/27/16 04:00 Room Air Intake and Output 04/26/16 04/26/16 04/27/16 15:00 23:00 07:00 Intake Total 740 ml 300 ml Output Total 800 ml Balance -60 ml 300 ml Exam Constitutional: alert, frail, oriented, No distress, No non-verbal, No obese, No other, No well developed Psych: anxiety, confusion, No depression, No nl mood/affect, No no complaints, No other, No suicidal Head: atraumatic, No hematomas, No lacerations, No normocephalic, No other Eyes: EOMI, PERRL ENMT: nl nasal mucosa & septum Neck: bruits, nuchal rigidity, No jvd, No masses, No non-tender, No other, No supple, No thyromegaly Respiratory: congested cough, intercostal retraction, labored breathing, No clear to auscultation, No crackles/rales, No diminished breath sounds, No normal air movement, No other, No respirations, No tactile fremitus, No wheezing Cardiovascular: bruits, jugular venous distention (JVD), systolic murmur, No S3, No S4, No diastolic murmur, No edema, No gallop, No irregular rhythm, No murmurs/extra sounds, No nl pulses, No other, No regular rate and rhythm, No rub Gastrointestinal: bowel sounds, No ascites, No distended, No firm, No hepatomegaly, No mass, No nl liver, spleen, No non-tender, No other, No rebound or guarding, No soft, No splenomegaly, No surgical scars, No tender Genitourinary - Female: CVA tenderness, No CMT, No nl adnexae, No nl external genitalia, No other, No uterus Musculoskeletal: joint tenderness, muscle weakness, other (right hemiplegia persists.) Neurological: lethargic, numbness, reflexes Results Result Diagram: 04/27/16 0530 04/27/16 0530 Results 24 hrs Laboratory Tests Test 04/26/16 21:05 04/27/16 05:30 04/27/16 08:00 04/27/16 11:49 Bedside Glucose 215 121 178 Alanine Aminotransferase (ALT/SGPT) 24 Albumin 3.8 Albumin/Globulin Ratio 1.18 Alkaline Phosphatase 76 Anion Gap 18 H Aspartate Amino Transf (AST/SGOT) 18 Basophils # 0.0 Basophils % 0.3 Blood Morphology Comment Blood Urea Nitrogen 45 H Calcium Level 9.4 Carbon Dioxide Level 29 Chloride Level 99 Creatinine 1.31 H Direct Bilirubin 0.00 Eosinophils # 0.3 Eosinophils % 3.2 Globulin 3.20 Glucose Level 118 Hematocrit 30.9 L Hemoglobin 10.3 L Indirect Bilirubin 0.4 Iron Level 34 L Lymphocytes # 2.7 Lymphocytes % 26.0 Magnesium Level 1.4 L Mean Corpuscular Hemoglobin 29.3 Mean Corpuscular Hemoglobin Concent 33.2 Mean Corpuscular Volume 88.3 Mean Platelet Volume 10.7 H Monocytes # 0.9 Monocytes % 8.3 Neutrophils # 6.4 Neutrophils % 62.2 Nucleated Red Blood Cells # 0.0 Nucleated Red Blood Cells % 0.0 Percent Iron Saturation 16 L Platelet Count 138 L Potassium Level 4.2 Red Blood Count 3.50 L Red Cell Distribution Width 14.5 Sodium Level 142 Total Bilirubin 0.4 Total Iron Binding Capacity 216 L Total Protein 7.0 White Blood Count 10.2 Test 04/27/16 17:03 Bedside Glucose 169 Medications Medications Current Medications Diagnostic Test (Pha) (Accucheck) 1 ea 02 XX Last administered on 04/22/16at 02 :00; Admin Dose 1 EA; Start 04/19/16 at 02:00 Acetaminophen (Tylenol Tab) 325 mg Q4H PRN PO PAIN AND OR ELEVATED TEMP Last administered on 04/25/16 08:24; Admin Dose 325 MG; Start 04/18/16 at 18:00 Amlodipine Besylate (Norvasc) 10 mg HS NGT Last administered on 04/26/16 21: 02; Admin Dose 10 MG; Start 04/18/16 at 21:00 Aspirin (Aspirin) 81 mg DAILY PO Last administered on 04/27/16 08:59; Admin Dose 81 MG; Start 04/19/16 at 09:00 Atorvastatin Calcium (Lipitor) 40 mg HS PO Last administered on 04/26/16 21: 03; Admin Dose 40 MG; Start 04/18/16 at 21:00 Bisacodyl (Dulcolax Supp) 10 mg DAILY PRN [place] CONSTIPATION; Start 04/18/16 at 18:00 Carvedilol (Coreg) 12.5 mg BID PO Last administered on 04/27/16 09:00; Admin Dose 12.5 MG; Start 04/18/16 at 21:00 Celecoxib (Celebrex) 200 mg DAILY PO Last administered on 04/27/16 09:00; Admin Dose 200 MG; Start 04/19/16 at 09:00 Cholecalciferol (Vitamin D) 2,000 unit DAILY PO Last administered on 04/27/16 08:59; Admin Dose 2,000 UNIT; Start 04/19/16 at 09:00 Donepezil HCl (Aricept) 10 mg DAILY PO Last administered on 04/27/16 09:00; Admin Dose 10 MG; Start 04/19/16 at 09:00 Hydralazine HCl (Apresoline) 50 mg Q8 PO Last administered on 04/27/16 06:26; Admin Dose 50 MG; Start 04/18/16 at 22:00 Hydrochlorothiazide (Hydrochlorothiazide) 25 mg DAILY PO Last administered on 08:58; Admin Dose 25 MG; Start 04/19/16 at 09:00 Lactulose (Enulose) 20 gm DAILY PRN PO CONSTIPATION; Start 04/18/16 at 18:00 Linagliptin (Tradjenta) 5 mg DAILY PO Last administered on 04/27/16 08:59; Admin Dose 5 MG; Start 04/19/16 at 09:00 Loperamide HCl (Imodium Cap) 2 mg QID PRN PO DIARRHEA; Start 04/18/16 at 18:00 Lorazepam (Ativan) 0.5 mg HS PO Last administered on 04/26/16at 21:02; Admin Dose 0.5 MG; Start 04/18/16 at 21:00 Lorazepam (Ativan) 1 mg Q12 PRN PO AGITATION/ANXIETY; Start 04/18/16 at 18:00 Losartan Potassium (Cozaar) 100 mg DAILY PO Last administered on 04/27/16 08:59 ; Admin Dose 100 MG; Start 04/19/16 at 09:00 Magnesium Hydroxide (Milk Of Mag) 30 ml DAILY PRN PO CONSTIPATION; Start 04/18 at 18:00 Meclizine HCl (Antivert) 25 mg DAILY PO Last administered on 04/27/16 08:59; Admin Dose 25 MG; Start 04/19/16 at 09:00 Memantine (Namenda) 10 mg BID PO Last administered on 04/27/16 08:58; Admin Dose 10 MG; Start 04/18/16 at 21:00 Pantoprazole (Protonix Tab) 40 mg DAILY@06 PO Last administered on 04/27/16 06: 25; Admin Dose 40 MG; Start 04/19/16 at 06:00 Sertraline HCl (Zoloft) 25 mg DAILY PO Last administered on 04/27/16 08:59; Admin Dose 25 MG; Start 04/19/16 at 09:00 Solifenacin (Vesicare) 5 mg DAILY PO Last administered on 04/27/16 08:59; Admin Dose 5 MG; Start 04/19/16 at 09:00 Zolpidem Tartrate (Ambien) 5 mg HS PO Last administered on 04/26/16at 21:02; Admin Dose 5 MG; Start 04/18/16 at 21:00 Miscellaneous Information 1 ea NOTE XX ; Start 04/18/16 at 18:30 Glucose (Glutose) 15 gm Q15M PRN PO DECREASED GLUCOSE; Start 04/18/16 at 18:30 Glucose (Glutose) 22.5 gm Q15M PRN PO DECREASED GLUCOSE; Start 04/18/16 at 18: 30 Dextrose (D50w Syringe) 25 ml Q15M PRN IV DECREASED GLUCOSE; Start 04/18/16 at 18:30 Dextrose (D50w Syringe) 50 ml Q15M PRN IV DECREASED GLUCOSE; Start 04/18/16 at 18:30 Glucagon (Glucagen) 1 mg Q15M PRN IM DECREASED GLUCOSE; Start 04/18/16 at 18: 30 Glucose (Glutose) 15 gm Q15M PRN [place]CC[place] DECREASED GLUCOSE; Start 04/18/16 at 18:30 Clonidine HCl (Catapres-Tts 1 Patch) 1 patch Q7D TRANSDERM Last administered on 04/22/16at 10:01; Admin Dose 1 PATCH; Start 04/22/16 at 09:00 Clonidine (Catapres) 0.1 mg Q8H PRN PO ELEVATED SYSTOLIC BP>150; Start at 18:30 Apixaban (Eliquis) 2.5 mg BID PO Last administered on 04/27/16 08:59; Admin Dose 2.5 MG; Start 04/20/16 at 20:00 VANI DALAL MD Apr 27, 2016 19:28
[2016-04-27] MEDS ORDERED: MAGNESIUM SULFATE 2 GM/50 ML 50 ML IVPB SCH (19:30)
[2016-04-27] MEDS: SOD FERRIC GLUC COMPLX 125 MG in SOD CHLORIDE 0.9% 100 ML IVPB SCH (20:54)
[2016-04-27] MEDS: LORAZEPAM 0.5 MG TAB PO SCH (20:55)
[2016-04-27] MEDS: ZOLPIDEM 5 MG TAB PO SCH (20:55)
[2016-04-27] MEDS: ATORVASTATIN 40 MG TAB PO SCH (20:55)
[2016-04-27] MEDS: AMLODIPINE 10 MG TAB NGT SCH (20:57)
[2016-04-28] VITALS (11 sets, daily range): BP systolic 104–156; BP diastolic 53–71; PULSE 63–86; RESP 16–20
[2016-04-28] MEDS: ACCUCHECK XX SCH (02:00)
[2016-04-28] MEDS: PANTOPRAZOLE (EC) 40 MG TAB PO SCH (06:28)
--- NOTE | 2016-04-28 07:58 | RADRPT ---
PROCEDURE: XR Chest. CLINICAL INDICATION: Shortness of breath. TECHNIQUE: Single frontal view. COMPARISON: 04/18/2016. FINDINGS: The lungs are clear. The heart is mildly enlarged. There is calcification in the aorta consistent with atherosclerosis. There is no pleural effusion. There is no pneumothorax. IMPRESSION: 1. Mild cardiomegaly and atherosclerosis. 2. Clear lungs. RPTAT: QQ .Bridger Josue MD, MD Date Time Electronically viewed and signed by .Bridger Josue MD, on 04/28/2016 07:58 .R/
[2016-04-28] MEDS: metFORMIN 500 MG TAB PO SCH ×2 (09:10→18:29)
[2016-04-28] MEDS: MECLIZINE 25 MG TAB PO SCH (09:11)
[2016-04-28] MEDS: DONEPEZIL 10 MG TAB PO SCH (09:11)
[2016-04-28] MEDS: ASPIRIN 81 MG TAB PO SCH (09:12)
[2016-04-28] MEDS: CELECOXIB 200 MG CAP PO SCH (09:12)
[2016-04-28] MEDS: APIXABAN 5 MG TABLET PO SCH ×2 (09:15→21:47)
[2016-04-28] MEDS: MEMANTINE 10 MG TAB PO SCH ×2 (09:16→21:47)
[2016-04-28] MEDS: LINAGLIPTIN 5 MG TABLET PO SCH (09:16)
[2016-04-28] MEDS: HYDROCHLOROTHIAZIDE 25 MG TAB PO SCH (09:16)
[2016-04-28] MEDS: SOLIFENACIN 5 MG TAB PO SCH (09:17)
[2016-04-28] MEDS: CHOLECALCIFEROL 2,000 UNIT CAP PO SCH (09:17)
[2016-04-28] MEDS: LOSARTAN 50 MG TAB PO SCH (09:20)
[2016-04-28] MEDS: SERTRALINE 50 MG TAB PO SCH (09:20)
[2016-04-28] MEDS: INSULIN ASPART [NOVOLOG] 3 ML PEN SC SCH ×4 (09:26→21:00)
--- NOTE | 2016-04-28 10:55 | CONS ---
Date/Time of Note Date/Time of Note DATE: 04/28/16 TIME: 10:55 Consultation Date/Type/Reason Admit Date/Time Apr 18, 2016 at 17:15 Initial Consult Date Exam/Review of Systems Vital Signs Vitals Vital Signs Date Time Temp Pulse Resp B/P Pulse Ox O2 Delivery O2 Flow Rate FiO2 04/28/16 08:29 98.2 79 20 156/70 95 04/28/16 04:00 Room Air Intake and Output 04/27/16 04/27/16 04/28/16 15:00 23:00 07:00 Intake Total 210 ml 750 ml 460 ml Balance 210 ml 750 ml 460 ml Results Result Diagram: 04/27/16 0530 04/27/16 0530 Results 24 hrs Laboratory Tests Test 04/27/16 11:49 04/27/16 17:03 04/27/16 20:52 04/28/16 07:39 Bedside Glucose 178 169 145 170 Medications Medications Current Medications Diagnostic Test (Pha) (Accucheck) 1 ea 02 XX Last administered on 04/22/16at 02 :00; Admin Dose 1 EA; Start 04/19/16 at 02:00 Acetaminophen (Tylenol Tab) 325 mg Q4H PRN PO PAIN AND OR ELEVATED TEMP Last administered on 04/25/16 08:24; Admin Dose 325 MG; Start 04/18/16 at 18:00 Amlodipine Besylate (Norvasc) 10 mg HS NGT Last administered on 04/26/16at 21: 02; Admin Dose 10 MG; Start 04/18/16 at 21:00 Aspirin (Aspirin) 81 mg DAILY PO Last administered on 04/28/16 09:12; Admin Dose 81 MG; Start 04/19/16 at 09:00 Atorvastatin Calcium (Lipitor) 40 mg HS PO Last administered on 04/27/16 20:55 ; Admin Dose 40 MG; Start 04/18/16 at 21:00 Bisacodyl (Dulcolax Supp) 10 mg DAILY PRN [place] CONSTIPATION; Start 04/18/16 at 18:00 Carvedilol (Coreg) 12.5 mg BID PO Last administered on 04/28/16 09:14; Admin Dose 12.5 MG; Start 04/18/16 at 21:00 Celecoxib (Celebrex) 200 mg DAILY PO Last administered on 04/28/16 09:12; Admin Dose 200 MG; Start 04/19/16 at 09:00 Cholecalciferol (Vitamin D) 2,000 unit DAILY PO Last administered on 04/28/16 09:17; Admin Dose 2,000 UNIT; Start 04/19/16 at 09:00 Donepezil HCl (Aricept) 10 mg DAILY PO Last administered on 04/28/16 09:11; Admin Dose 10 MG; Start 04/19/16 at 09:00 Hydralazine HCl (Apresoline) 50 mg Q8 PO Last administered on 04/28/16 06:29; Admin Dose 50 MG; Start 04/18/16 at 22:00 Hydrochlorothiazide (Hydrochlorothiazide) 25 mg DAILY PO Last administered on 09:16; Admin Dose 25 MG; Start 04/19/16 at 09:00 Lactulose (Enulose) 20 gm DAILY PRN PO CONSTIPATION; Start 04/18/16 at 18:00 Linagliptin (Tradjenta) 5 mg DAILY PO Last administered on 04/28/16 09:16; Admin Dose 5 MG; Start 04/19/16 at 09:00 Loperamide HCl (Imodium Cap) 2 mg QID PRN PO DIARRHEA; Start 04/18/16 at 18:00 Lorazepam (Ativan) 0.5 mg HS PO Last administered on 04/27/16 20:55; Admin Dose 0.5 MG; Start 04/18/16 at 21:00 Lorazepam (Ativan) 1 mg Q12 PRN PO AGITATION/ANXIETY; Start 04/18/16 at 18:00 Losartan Potassium (Cozaar) 100 mg DAILY PO Last administered on 04/28/16 09:20 ; Admin Dose 100 MG; Start 04/19/16 at 09:00 Magnesium Hydroxide (Milk Of Mag) 30 ml DAILY PRN PO CONSTIPATION; Start 04/18 at 18:00 Meclizine HCl (Antivert) 25 mg DAILY PO Last administered on 04/28/16 09:11; Admin Dose 25 MG; Start 04/19/16 at 09:00 Memantine (Namenda) 10 mg BID PO Last administered on 04/28/16 09:16; Admin Dose 10 MG; Start 04/18/16 at 21:00 Pantoprazole (Protonix Tab) 40 mg DAILY@06 PO Last administered on 04/28/16 06: 28; Admin Dose 40 MG; Start 04/19/16 at 06:00 Sertraline HCl (Zoloft) 25 mg DAILY PO Last administered on 04/28/16 09:20; Admin Dose 25 MG; Start 04/19/16 at 09:00 Solifenacin (Vesicare) 5 mg DAILY PO Last administered on 04/28/16 09:17; Admin Dose 5 MG; Start 04/19/16 at 09:00 Zolpidem Tartrate (Ambien) 5 mg HS PO Last administered on 04/27/16 20:55; Admin Dose 5 MG; Start 04/18/16 at 21:00 Miscellaneous Information 1 ea NOTE XX ; Start 04/18/16 at 18:30 Glucose (Glutose) 15 gm Q15M PRN PO DECREASED GLUCOSE; Start 04/18/16 at 18:30 Glucose (Glutose) 22.5 gm Q15M PRN PO DECREASED GLUCOSE; Start 04/18/16 at 18: 30 Dextrose (D50w Syringe) 25 ml Q15M PRN IV DECREASED GLUCOSE; Start 04/18/16 at 18:30 Dextrose (D50w Syringe) 50 ml Q15M PRN IV DECREASED GLUCOSE; Start 04/18/16 at 18:30 Glucagon (Glucagen) 1 mg Q15M PRN IM DECREASED GLUCOSE; Start 04/18/16 at 18: 30 Glucose (Glutose) 15 gm Q15M PRN BUCCAL DECREASED GLUCOSE; Start 04/18/16 at 18:30 Clonidine HCl (Catapres-Tts 1 Patch) 1 patch Q7D TRANSDERM Last administered on 04/22/16at 10:01; Admin Dose 1 PATCH; Start 04/22/16 at 09:00 Clonidine (Catapres) 0.1 mg Q8H PRN PO ELEVATED SYSTOLIC BP>150; Start at 18:30 Apixaban 2.5 mg 2.5 mg BID PO Last administered on 04/28/16 09:15; Admin Dose 2.5 MG; Start 04/20/16 at 20:00 Ferric Sodium Gluconate Complex/ Sodium Chloride (Ferrlecit/NS) 110 ml @ 100 mls/hr Q24H IVPB Last administered on 1/1/17at 20:54; Admin Dose 100 MLS/HR; Start 04/27/16 at 19:30; Stop 04/29/16 at 20:35 OBIE GONZALEZ MD Apr 28, 2016 10:55
--- NOTE | 2016-04-28 10:55 | CONS ---
Date/Time of Note Date/Time of Note DATE: 04/28/16 TIME: 10:54 Constitutional: disoriented, requiring O2, No chills, No diaphoresis, No febrile, No improved, No no complaints, No other, No poor po, No requiring IVF Eyes: No discharge, No no complaints, No other, No pain, No redness, No visual change ENT: No bleeding, No congestion, No discharge, No dysphagia, No no complaints, No other, No pain, No sore throat Respiratory: shortness of breath, No cough, No no complaints, No other, No pain, No pleuritic pain, No sputum, No wheezing Cardiovascular: lightheadedness, orthopenea, palpitations, No chest pain, No edema, No no complaints, No other, No paroxysmal nocturnal dyspnea Gastrointestinal: diarrhea, flatus, pain, passing stool, No blood, No constipation, No decreased appetite, No nausea, No no complaints , No other, No vomiting Genitourinary: flank pain, No bleeding, No discharge, No dysuria, No hematuria, No no complaints, No other Musculoskeletal: bone/joint pain, No back pain, No neck pain, No no complaints, No other, No restricted range of motion, No swelling Skin: No bruising, No erythema, No laceration, No no complaints, No other, No pruritis, No rash, No skin lesions Neurologic: confusion, dizziness, headache, other (Right hemiplegia improving.), No focal-weakness, No no complaints, No seizure, No syncope Endocrine: No dry skin, No no complaints, No other, No polydypsia, No polyuria , No temp intolerance Lymphatic: No adenopathy, No lymphadema, No no complaints, No other, No tender nodes Psychological: anxiety, confusion, No depression, No nl mood/affect, No no complaints, No other, No suicidal Immunologic: No immunodeficiency, No no complaints, No other, No pruritis, No rhinitis, No urticaria Past Medical History Medical History: cancer, congestive heart failure, diabetes, GERD, high cholesterol, hypertension, urinary tract infection Past Surgical History Past Surgical Hx: angioplasty, appendectomy, other Social History Alcohol Use: none Smoking Status: Never smoker Drug Use: none Exam/Review of Systems Vital Signs Vitals Vital Signs Date Time Temp Pulse Resp B/P Pulse Ox O2 Delivery O2 Flow Rate FiO2 04/28/16 08:29 98.2 79 20 156/70 95 04/28/16 04:00 Room Air Intake and Output 04/27/16 04/27/16 04/28/16 15:00 23:00 07:00 Intake Total 210 ml 750 ml 460 ml Balance 210 ml 750 ml 460 ml Results Result Diagram: 04/27/16 0530 04/27/16 0530 Results 24 hrs Laboratory Tests Test 04/27/16 11:49 04/27/16 17:03 04/27/16 20:52 04/28/16 07:39 Bedside Glucose 178 169 145 170 Medications Medications Current Medications Diagnostic Test (Pha) (Accucheck) 1 ea 02 XX Last administered on 04/22/16at 02 :00; Admin Dose 1 EA; Start 04/19/16 at 02:00 Acetaminophen (Tylenol Tab) 325 mg Q4H PRN PO PAIN AND OR ELEVATED TEMP Last administered on 04/25/16at 08:24; Admin Dose 325 MG; Start 04/18/16 at 18:00 Amlodipine Besylate (Norvasc) 10 mg HS NGT Last administered on 04/26/16at 21: 02; Admin Dose 10 MG; Start 04/18/16 at 21:00 Aspirin (Aspirin) 81 mg DAILY PO Last administered on 04/28/16 09:12; Admin Dose 81 MG; Start 04/19/16 at 09:00 Atorvastatin Calcium (Lipitor) 40 mg HS PO Last administered on 04/27/16 20:55 ; Admin Dose 40 MG; Start 04/18/16 at 21:00 Bisacodyl (Dulcolax Supp) 10 mg DAILY PRN [place] CONSTIPATION; Start 04/18/16 at 18:00 Carvedilol (Coreg) 12.5 mg BID PO Last administered on 04/28/16 09:14; Admin Dose 12.5 MG; Start 04/18/16 at 21:00 Celecoxib (Celebrex) 200 mg DAILY PO Last administered on 04/28/16 09:12; Admin Dose 200 MG; Start 04/19/16 at 09:00 Cholecalciferol (Vitamin D) 2,000 unit DAILY PO Last administered on 04/28/16 09:17; Admin Dose 2,000 UNIT; Start 04/19/16 at 09:00 Donepezil HCl (Aricept) 10 mg DAILY PO Last administered on 04/28/16 09:11; Admin Dose 10 MG; Start 04/19/16 at 09:00 Hydralazine HCl (Apresoline) 50 mg Q8 PO Last administered on 04/28/16 06:29; Admin Dose 50 MG; Start 04/18/16 at 22:00 Hydrochlorothiazide (Hydrochlorothiazide) 25 mg DAILY PO Last administered on 09:16; Admin Dose 25 MG; Start 04/19/16 at 09:00 Lactulose (Enulose) 20 gm DAILY PRN PO CONSTIPATION; Start 04/18/16 at 18:00 Linagliptin (Tradjenta) 5 mg DAILY PO Last administered on 04/28/16 09:16; Admin Dose 5 MG; Start 04/19/16 at 09:00 Loperamide HCl (Imodium Cap) 2 mg QID PRN PO DIARRHEA; Start 04/18/16 at 18:00 Lorazepam (Ativan) 0.5 mg HS PO Last administered on 04/27/16 20:55; Admin Dose 0.5 MG; Start 04/18/16 at 21:00 Lorazepam (Ativan) 1 mg Q12 PRN PO AGITATION/ANXIETY; Start 04/18/16 at 18:00 Losartan Potassium (Cozaar) 100 mg DAILY PO Last administered on 04/28/16 09:20 ; Admin Dose 100 MG; Start 04/19/16 at 09:00 Magnesium Hydroxide (Milk Of Mag) 30 ml DAILY PRN PO CONSTIPATION; Start 04/18 at 18:00 Meclizine HCl (Antivert) 25 mg DAILY PO Last administered on 04/28/16 09:11; Admin Dose 25 MG; Start 04/19/16 at 09:00 Memantine (Namenda) 10 mg BID PO Last administered on 04/28/16 09:16; Admin Dose 10 MG; Start 04/18/16 at 21:00 Pantoprazole (Protonix Tab) 40 mg DAILY@06 PO Last administered on 04/28/16 06: 28; Admin Dose 40 MG; Start 04/19/16 at 06:00 Sertraline HCl (Zoloft) 25 mg DAILY PO Last administered on 04/28/16 09:20; Admin Dose 25 MG; Start 04/19/16 at 09:00 Solifenacin (Vesicare) 5 mg DAILY PO Last administered on 04/28/16 09:17; Admin Dose 5 MG; Start 04/19/16 at 09:00 Zolpidem Tartrate (Ambien) 5 mg HS PO Last administered on 04/27/16 20:55; Admin Dose 5 MG; Start 04/18/16 at 21:00 Miscellaneous Information 1 ea NOTE XX ; Start 04/18/16 at 18:30 Glucose (Glutose) 15 gm Q15M PRN PO DECREASED GLUCOSE; Start 04/18/16 at 18:30 Glucose (Glutose) 22.5 gm Q15M PRN PO DECREASED GLUCOSE; Start 04/18/16 at 18: 30 Dextrose (D50w Syringe) 25 ml Q15M PRN IV DECREASED GLUCOSE; Start 04/18/16 at 18:30 Dextrose (D50w Syringe) 50 ml Q15M PRN IV DECREASED GLUCOSE; Start 04/18/16 at 18:30 Glucagon (Glucagen) 1 mg Q15M PRN IM DECREASED GLUCOSE; Start 04/18/16 at 18: 30 Glucose (Glutose) 15 gm Q15M PRN BUCCAL DECREASED GLUCOSE; Start 04/18/16 at 18:30 Clonidine HCl (Catapres-Tts 1 Patch) 1 patch Q7D TRANSDERM Last administered on 04/22/16at 10:01; Admin Dose 1 PATCH; Start 04/22/16 at 09:00 Clonidine (Catapres) 0.1 mg Q8H PRN PO ELEVATED SYSTOLIC BP>150; Start at 18:30 Apixaban 2.5 mg 2.5 mg BID PO Last administered on 04/28/16 09:15; Admin Dose 2.5 MG; Start 04/20/16 at 20:00 Ferric Sodium Gluconate Complex/ Sodium Chloride (Ferrlecit/NS) 110 ml @ 100 mls/hr Q24H IVPB Last administered on 04/27/16 20:54; Admin Dose 100 MLS/HR; Start 04/27/16 at 19:30; Stop 04/29/16 at 20:35 OBIE GONZALEZ MD Apr 28, 2016 10:55
--- NOTE | 2016-04-28 16:39 | PN ---
Date/Time of Note Date/Time of Note DATE: 04/28/16 TIME: 16:38 Assessment/Plan VTE Prophylaxis VTE Prophylaxis Intervention: ambulation, anti-embolic stocking VTE Contraindication Reason: peripheral vascular disease Lines/Catheters IV Catheter Type (from Nrsg): [place] [employer] line still needed: No Urinary Cath still in place: No Reason Cath still needed: urinary retention Assessment/Plan Chief Complaint/Hosp Course 1.Paroxismal a.fibrillation with rapid ventricular rate vs SVT. 2.HTN out of control- become hypotensive during a.fib. attack. 3.DM type 2 4.Dyslipidemia 5.AD - getting worse, with anxiety d/o 6.S/P hemicolectomy with appendectomy by HX due to of colonic cancer 7.Progressive weight loss (more than 40 lb in less than a year) 8.VDV;DVT? HX? 9.S/P cataractectomy bilateral 10.S/P falls and recent head trauma. 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 12.S/P PSVT converted to sinus rhythm by adenosine in [facility] [place]? 13.Hx of recurrent uti's 14.LEW and osteoporosis 15.Redness of t he skin of calcaneal areas. 16.Diarrhea due to of short bowel with other causes 17.Severe muscular weakness 18.Severe hearing impairment 19.Anemia of chronic disease 20.Low magnesium levels on and off 21.Low Vit "D" level 22.LVH with diastolic dysfunction. 23.Multiple bruises of extremities 24.Osteoporosis 25. S/P Fx of the right hip; s/p orif. 26.PAD 27.CVA with right weakness- improving Low MG; Iron. Problems: Subjective 24 Hr Interval Summary Free Text/Dictation Planning to discharge and transfer to SNF tomorrow. Constitutional: disoriented, requiring O2, No chills, No diaphoresis, No febrile, No improved, No no complaints, No other, No poor po, No requiring IVF Eyes: No discharge, No no complaints, No other, No pain, No redness, No visual change ENT: No bleeding, No congestion, No discharge, No dysphagia, No no complaints, No other, No pain, No sore throat Respiratory: shortness of breath, No cough, No no complaints, No other, No pain, No pleuritic pain, No sputum, No wheezing Cardiovascular: lightheadedness, orthopenea, palpitations, No chest pain, No edema, No no complaints, No other, No paroxysmal nocturnal dyspnea Gastrointestinal: flatus, No blood, No constipation, No decreased appetite, No diarrhea, No nausea, No no complaints, No other, No pain, No passing stool, No vomiting Genitourinary: dysuria, No bleeding, No discharge, No flank pain, No hematuria, No no complaints, No other Musculoskeletal: back pain, bone/joint pain, No neck pain, No no complaints, No other, No restricted range of motion, No swelling Neurologic: confusion, dizziness, headache, No focal-weakness, No no complaints, No other, No seizure, No syncope Endocrine: No dry skin, No no complaints, No other, No polydypsia, No polyuria , No temp intolerance Lymphatic: No adenopathy, No lymphadema, No no complaints, No other, No tender nodes Psychological: anxiety, confusion, No depression, No nl mood/affect, No no complaints, No other, No suicidal Immunologic: No immunodeficiency, No no complaints, No other, No pruritis, No rhinitis, No urticaria Exam/Review of Systems Vital Signs Vitals Vital Signs Date Time Temp Pulse Resp B/P Pulse Ox O2 Delivery O2 Flow Rate FiO2 04/28/16 16:14 68 04/28/16 15:33 97.8 18 104/53 93 04/28/16 04:00 Room Air Intake and Output 04/27/16 04/27/16 04/28/16 14:59 22:59 06:59 Intake Total 210 ml 750 ml 460 ml Balance 210 ml 750 ml 460 ml Exam Constitutional: alert, frail, oriented, well developed Psych: anxiety, depression, No confusion, No nl mood/affect, No no complaints, No other, No suicidal Head: No atraumatic, No hematomas, No lacerations, No normocephalic, No other Eyes: EOMI, PERRL, No fundi, disc, No icteric, No nl conjunctiva, No nl lids, No nl sclera, No other ENMT: nl external ears & nose, No intubated, No mucosa pink and moist, No nl lips & teeth, No nl nasal mucosa & septum, No other, No tympanic membranes Neck: nuchal rigidity, supple, No bruits, No jvd, No masses, No non-tender, No other, No thyromegaly Respiratory: congested cough, diminished breath sounds, labored breathing, No clear to auscultation, No crackles/rales, No intercostal retraction, No normal air movement, No other, No respirations, No tactile fremitus, No wheezing Cardiovascular: jugular venous distention (JVD), systolic murmur, No S3, No S4, No bruits, No diastolic murmur, No edema, No gallop, No irregular rhythm, No murmurs/extra sounds, No nl pulses, No other, No regular rate and rhythm, No rub Gastrointestinal: bowel sounds, No ascites, No distended, No firm, No hepatomegaly, No mass, No nl liver, spleen, No non-tender, No other, No rebound or guarding, No soft, No splenomegaly, No surgical scars, No tender Musculoskeletal: joint tenderness, muscle weakness, No muscle tone, No nl extremities to inspection, No nl gait and stance, No other, No range of motion, No spine non-tender, No swelling Neurological: focal weakness, lethargic, reflexes Lymph: No enlarged, No nl lymph nodes, No nontender, No other Results Result Diagram: 04/27/16 0530 04/27/16 0530 Results 24 hrs Laboratory Tests Test 04/27/16 17:03 04/27/16 20:52 04/28/16 07:39 04/28/16 12:08 Bedside Glucose 169 145 170 172 Medications Medications Current Medications Diagnostic Test (Pha) (Accucheck) 1 ea 02 XX Last administered on 04/22/16at 02 :00; Admin Dose 1 EA; Start 04/19/16 at 02:00 Acetaminophen (Tylenol Tab) 325 mg Q4H PRN PO PAIN AND OR ELEVATED TEMP Last administered on 04/25/16at 08:24; Admin Dose 325 MG; Start 04/18/16 at 18:00 Amlodipine Besylate (Norvasc) 10 mg HS NGT Last administered on 04/26/16at 21: 02; Admin Dose 10 MG; Start 04/18/16 at 21:00 Aspirin (Aspirin) 81 mg DAILY PO Last administered on 04/28/16 09:12; Admin Dose 81 MG; Start 04/19/16 at 09:00 Atorvastatin Calcium (Lipitor) 40 mg HS PO Last administered on 04/27/16 20:55 ; Admin Dose 40 MG; Start 04/18/16 at 21:00 Bisacodyl (Dulcolax Supp) 10 mg DAILY PRN [place] CONSTIPATION; Start 04/18/16 at 18:00 Carvedilol (Coreg) 12.5 mg BID PO Last administered on 04/28/16 09:14; Admin Dose 12.5 MG; Start 04/18/16 at 21:00 Celecoxib (Celebrex) 200 mg DAILY PO Last administered on 04/28/16 09:12; Admin Dose 200 MG; Start 04/19/16 at 09:00 Cholecalciferol (Vitamin D) 2,000 unit DAILY PO Last administered on 04/28/16 09:17; Admin Dose 2,000 UNIT; Start 04/19/16 at 09:00 Donepezil HCl (Aricept) 10 mg DAILY PO Last administered on 04/28/16 09:11; Admin Dose 10 MG; Start 04/19/16 at 09:00 Hydralazine HCl (Apresoline) 50 mg Q8 PO Last administered on 04/28/16 06:29; Admin Dose 50 MG; Start 04/18/16 at 22:00 Hydrochlorothiazide (Hydrochlorothiazide) 25 mg DAILY PO Last administered on 09:16; Admin Dose 25 MG; Start 04/19/16 at 09:00 Lactulose (Enulose) 20 gm DAILY PRN PO CONSTIPATION; Start 04/18/16 at 18:00 Linagliptin (Tradjenta) 5 mg DAILY PO Last administered on 04/28/16 09:16; Admin Dose 5 MG; Start 04/19/16 at 09:00 Loperamide HCl (Imodium Cap) 2 mg QID PRN PO DIARRHEA; Start 04/18/16 at 18:00 Lorazepam (Ativan) 0.5 mg HS PO Last administered on 04/27/16 20:55; Admin Dose 0.5 MG; Start 04/18/16 at 21:00 Lorazepam (Ativan) 1 mg Q12 PRN PO AGITATION/ANXIETY; Start 04/18/16 at 18:00 Losartan Potassium (Cozaar) 100 mg DAILY PO Last administered on 04/28/16 09:20 ; Admin Dose 100 MG; Start 04/19/16 at 09:00 Magnesium Hydroxide (Milk Of Mag) 30 ml DAILY PRN PO CONSTIPATION; Start 04/18 at 18:00 Meclizine HCl (Antivert) 25 mg DAILY PO Last administered on 04/28/16 09:11; Admin Dose 25 MG; Start 04/19/16 at 09:00 Memantine (Namenda) 10 mg BID PO Last administered on 04/28/16 09:16; Admin Dose 10 MG; Start 04/18/16 at 21:00 Pantoprazole (Protonix Tab) 40 mg DAILY@06 PO Last administered on 04/28/16 06: 28; Admin Dose 40 MG; Start 04/19/16 at 06:00 Sertraline HCl (Zoloft) 25 mg DAILY PO Last administered on 04/28/16 09:20; Admin Dose 25 MG; Start 04/19/16 at 09:00 Solifenacin (Vesicare) 5 mg DAILY PO Last administered on 04/28/16 09:17; Admin Dose 5 MG; Start 04/19/16 at 09:00 Zolpidem Tartrate (Ambien) 5 mg HS PO Last administered on 04/27/16 20:55; Admin Dose 5 MG; Start 04/18/16 at 21:00 Miscellaneous Information 1 ea NOTE XX ; Start 04/18/16 at 18:30 Glucose (Glutose) 15 gm Q15M PRN PO DECREASED GLUCOSE; Start 04/18/16 at 18:30 Glucose (Glutose) 22.5 gm Q15M PRN PO DECREASED GLUCOSE; Start 04/18/16 at 18: 30 Dextrose (D50w Syringe) 25 ml Q15M PRN IV DECREASED GLUCOSE; Start 04/18/16 at 18:30 Dextrose (D50w Syringe) 50 ml Q15M PRN IV DECREASED GLUCOSE; Start 04/18/16 at 18:30 Glucagon (Glucagen) 1 mg Q15M PRN IM DECREASED GLUCOSE; Start 04/18/16 at 18: 30 Glucose (Glutose) 15 gm Q15M PRN BUCCAL DECREASED GLUCOSE; Start 04/18/16 at 18:30 Clonidine HCl (Catapres-Tts 1 Patch) 1 patch Q7D TRANSDERM Last administered on 04/22/16at 10:01; Admin Dose 1 PATCH; Start 04/22/16 at 09:00 Clonidine (Catapres) 0.1 mg Q8H PRN PO ELEVATED SYSTOLIC BP>150; Start at 18:30 Apixaban 2.5 mg 2.5 mg BID PO Last administered on 04/28/16 09:15; Admin Dose 2.5 MG; Start 04/20/16 at 20:00 Ferric Sodium Gluconate Complex/ Sodium Chloride (Ferrlecit/NS) 110 ml @ 100 mls/hr Q24H IVPB Last administered on 04/27/16 20:54; Admin Dose 100 MLS/HR; Start 04/27/16 at 19:30; Stop 04/29/16 at 20:35 VANI DALAL MD Apr 28, 2016 16:38
[2016-04-28] MEDS: ATORVASTATIN 40 MG TAB PO SCH (21:46)
[2016-04-28] MEDS: LORAZEPAM 0.5 MG TAB PO SCH (21:47)
[2016-04-28] MEDS: AMLODIPINE 10 MG TAB NGT SCH (21:48)
[2016-04-28] MEDS: SOD FERRIC GLUC COMPLX 125 MG in SOD CHLORIDE 0.9% 100 ML IVPB SCH (21:50)
[2016-04-28] MEDS: ZOLPIDEM 5 MG TAB PO SCH (23:19)
[2016-04-29] VITALS (8 sets, daily range): BP systolic 101–157; BP diastolic 55–71; PULSE 71–92; RESP 18–20
[2016-04-29] MEDS: ACCUCHECK XX SCH (02:00)
[2016-04-29] MEDS: PANTOPRAZOLE (EC) 40 MG TAB PO SCH (05:49)
[2016-04-29] MEDS: INSULIN ASPART [NOVOLOG] 3 ML PEN SC SCH ×3 (08:55→17:17)
[2016-04-29] MEDS: CELECOXIB 200 MG CAP PO SCH (08:55)
[2016-04-29] MEDS: SERTRALINE 50 MG TAB PO SCH (08:55)
[2016-04-29] MEDS: DONEPEZIL 10 MG TAB PO SCH (08:55)
[2016-04-29] MEDS: LOSARTAN 50 MG TAB PO SCH (08:56)
[2016-04-29] MEDS: metFORMIN 500 MG TAB PO SCH ×2 (08:56→17:16)
[2016-04-29] MEDS: ASPIRIN 81 MG TAB PO SCH (08:59)
[2016-04-29] MEDS: HYDROCHLOROTHIAZIDE 25 MG TAB PO SCH (08:59)
[2016-04-29] MEDS: CHOLECALCIFEROL 2,000 UNIT CAP PO SCH (08:59)
[2016-04-29] MEDS: MECLIZINE 25 MG TAB PO SCH (09:00)
[2016-04-29] MEDS: APIXABAN 5 MG TABLET PO SCH (09:00)
[2016-04-29] MEDS: LINAGLIPTIN 5 MG TABLET PO SCH (09:00)
[2016-04-29] MEDS: MEMANTINE 10 MG TAB PO SCH (09:00)
[2016-04-29] MEDS: SOLIFENACIN 5 MG TAB PO SCH (09:00)
[2016-04-29] MEDS: CLONIDINE 0.1 MG/24 HR PATCH TRANSDERM SCH (09:01)
--- NOTE | 2016-04-29 13:51 | DS ---
Date/Time of Note Date/Time of Note DATE: 04/29/16 TIME: 13:50 Discharge Summary Admission/Discharge Info Admit Date/Time Apr 18, 2016 at 17:15 Discharge Date/Time Final Diagnosis 1.Paroxismal a.fibrillation with rapid ventricular rate vs SVT. 2.HTN out of control- become hypotensive during a.fib. attack. 3.DM type 2 4.Dyslipidemia 5.AD - getting worse, with anxiety d/o 6.S/P hemicolectomy with appendectomy by HX due to of colonic cancer 7.Progressive weight loss (more than 40 lb in less than a year) 8.VDV;DVT? HX? 9.S/P cataractectomy bilateral 10.S/P falls and recent head trauma. 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 12.S/P PSVT converted to sinus rhythm by adenosine in [facility] [place] 2012? 13.Hx of recurrent uti's 14.LEW and osteoporosis 15.Redness of t he skin of calcaneal areas. 16.Diarrhea due to of short bowel with other causes 17.Severe muscular weakness 18.Severe hearing impairment 19.Anemia of chronic disease 20.Low magnesium levels on and off 21.Low Vit "D" level 22.LVH with diastolic dysfunction. 23.Multiple bruises of extremities 24.Osteoporosis 25. S/P Fx of the right hip; s/p orif. 26.PAD 27.CVA with right weakness- improving Patient Condition: Fair Hospital Course 1.Paroxismal a.fibrillation with rapid ventricular rate vs SVT. 2.HTN out of control- become hypotensive during a.fib. attack. 3.DM type 2 4.Dyslipidemia 5.AD - getting worse, with anxiety d/o 6.S/P hemicolectomy with appendectomy by HX due to of colonic cancer 7.Progressive weight loss (more than 40 lb in less than a year) 8.VDV;DVT? HX? 9.S/P cataractectomy bilateral 10.S/P falls and recent head trauma. 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 12.S/P PSVT converted to sinus rhythm by adenosine in [facility] 2012? 13.Hx of recurrent uti's 14.LEW and osteoporosis 15.Redness of t he skin of calcaneal areas. 16.Diarrhea due to of short bowel with other causes 17.Severe muscular weakness 18.Severe hearing impairment 19.Anemia of chronic disease 20.Low magnesium levels on and off 21.Low Vit "D" level 22.LVH with diastolic dysfunction. 23.Multiple bruises of extremities 24.Osteoporosis 25. S/P Fx of the right hip; s/p orif. 26.PAD 27.CVA with right weakness- improving Low MG; Iron. Home Meds Active Scripts Digoxin* (Digitek*) 0.125 Mg Tab, 0.125 MG PO DAILY@13 for 14 Days Prov:WILLIAM AYALA NP 01/30/15 Clopidogrel Bisulfate (Clopidogrel) 75 Mg Tab, 75 MG PO DAILY for 30 Days Prov:WILLIAM AYALA NP 10/26/14 Sitagliptin* (Januvia*) 50 Mg Tablet, 50 MG PO DAILY for 30 Days, TAB Prov:WILLIAM AYALA NP 10/26/14 Valsartan* (Diovan*) 80 Mg Tab, 80 MG PO BID for 30 Days Prov:WILLIAM AYALA NP 10/26/14 Carvedilol* (Coreg*) 6.25 Mg Tab, 6.25 MG PO BID for 30 Days Prov:WILLIAM AYALA NP 10/26/14 Atorvastatin Calcium* (Atorvastatin Calcium*) 20 Mg Tab, 40 MG PO HS for 30 Days Prov:WILLIAM AYALA NP 10/26/14 Aspirin* (Aspirin* EC) 81 Mg Tabec, 81 MG PO DAILY for 30 Days Prov:WILLIAM AYALA NP 10/26/14 Reported Medications Memantine* (Namenda* XR) 28 Mg Cap.spr.24, 28 MG PO DAILY, TAB 01/29/15 Zolpidem Tartrate* (Ambien*) 10 Mg Tablet, 10 MG PO HS Y for INSOMNIA, TAB 01/29/15 Dexlansoprazole (Dexilant) 60 Mg , 60 MG PO DAILY, CAP 01/29/15 Ezetimibe* (Zetia*) 10 Mg Tablet, 10 MG PO HS, TAB 01/29/15 Olmesartan-Hydrochlorothiazide (Benicar HCT) 40-25 Mg Tablet, 1 TAB PO DAILY, TAB 01/29/15 Rosuvastatin Calcium* (Crestor*) 40 Mg Tablet, 40 MG PO HS, TAB 01/29/15 Celecoxib* (Celebrex*) 200 Mg Capsule, 200 MG PO BID, CAP 01/29/15 Ypylik-Vptueegq-Tdwqqnr* (Venus EDWARD* 24,000) 24,000 L-76,000-120,000 Unit Capsule., 1 CAP PO BID WITH MEALS, CAP 01/29/15 Metformin Hcl* (Metformin Hcl*) 500 Mg Tablet, 500 MG PO BID WITH MEALS, TAB 01/29/15 Meclizine Hcl* (Meclizine Hcl*) 25 Mg Tablet, 25 MG PO DAILY for DIZZINESS, TAB 10/23/14 Follow-up Plan Discharge and transfer to the [facility]. F/U in 5 days. Pending Labs Laboratory Tests Test 04/28/16 17:24 04/28/16 21:32 04/29/16 07:35 04/29/16 11:26 Bedside Glucose 135mg/dL (70-220) 174mg/dL (70-220) 143mg/dL (70-220) 154mg/dL (70-220) VANI DALAL MD Apr 29, 2016 13:51
--- NOTE | 2016-04-29 20:57 | CONS ---
Date/Time of Note Date/Time of Note DATE: 04/29/16 TIME: 11:57 Consultation Date/Type/Reason Admit Date/Time Apr 18, 2016 at 17:15 Exam/Review of Systems Vital Signs Vitals Vital Signs Date Time Temp Pulse Resp B/P Pulse Ox O2 Delivery O2 Flow Rate FiO2 04/29/16 15:41 98.6 77 20 129/59 94 04/29/16 04:00 Nasal Cannula 2.0 Intake and Output 04/28/16 04/28/16 04/29/16 15:00 23:00 07:00 Intake Total 1000 ml 420 ml Balance 1000 ml 420 ml Results Result Diagram: 04/27/16 0530 04/27/16 0530 Results 24 hrs Laboratory Tests Test 04/28/16 21:32 04/29/16 07:35 04/29/16 11:26 04/29/16 17:09 Bedside Glucose 174 143 154 227 H OBIE GONZALEZ MD Apr 29, 2016 20:57
== END 2016-04-29 18:37 | DRG 65 ==
LOC: ICU 17:15 → MS4 04-19 20:11
PROVIDERS: ADMIT Family Medicine; ATTEND Family Medicine
DX: I63.9 Cerebral infarction, unspecified (principal); I69.351 Hemiplegia and hemiparesis following cerebral infarction affecting right dominant side; I95.9 Hypotension, unspecified; I50.30 Unspecified diastolic (congestive) heart failure; E11.51 Type 2 diabetes mellitus with diabetic peripheral angiopathy without gangrene; E55.9 Vitamin D deficiency, unspecified; I48.0 Paroxysmal atrial fibrillation; G30.9 Alzheimer's disease, unspecified; F02.80 Dementia in other diseases classified elsewhere, unspecified severity, without behavioral disturbance, psychotic disturbance, mood disturbance, and anxiety; S80.11XA Contusion of right lower leg, initial encounter; D63.8 Anemia in other chronic diseases classified elsewhere; I10 Essential (primary) hypertension; S80.12XA Contusion of left lower leg, initial encounter; E78.5 Hyperlipidemia, unspecified; R63.4 Abnormal weight loss; M62.81 Muscle weakness (generalized); H91.90 Unspecified hearing loss, unspecified ear; M81.0 Age-related osteoporosis without current pathological fracture; F41.9 Anxiety disorder, unspecified; M19.90 Unspecified osteoarthritis, unspecified site; Z68.31 Body mass index [BMI] 31.0-31.9, adult; Z91.81 History of falling; Z86.718 Personal history of other venous thrombosis and embolism; Z79.82 Long term (current) use of aspirin; Z79.4 Long term (current) use of insulin; Z87.440 Personal history of urinary (tract) infections
CPT/HCPCS: 70551; 71010; 80048; 80053; 82565; 82962; 83540; 83735; 84520; 85025; 90686; 93005; 97001; 97003; 97110; 97530; J1815; J2916; J3420; J3475

== ENCOUNTER 2017-10-10 10:00 | Emergency (ER) | END 2017-10-10 14:30 | disposition home or self-care (01) ==

== ENCOUNTER 2018-02-19 13:31 | Inpatient (IN) | END 2018-02-22 18:24 | disposition home or self-care (01) | DRG 71 ==

== ENCOUNTER 2018-06-12 20:03 | Observation (INO) | payer MEDICARE, OTHER ==
[~2018-06-12] VITALS: Ht 165.1 cm; Wt 75.0 kg
[~2018-06-12 20:03] MED LIST changes: +ARIP2TAB17 PO; -ASPI-664 PO; -ATOR20TA38 PO; -CARV6.25 PO; +CARV6.2579 PO; +CLON0.2T5 PO; +COLC0.6T6 PO; +DILT120C62 PO; +DONE10TA7 PO; -EZET10TA3 PO; +EZET10TA31 PO; +HYDR-3672 PO; +LORA0.5T PO; -MECL-77 PO; -MEMA28CA PO; -METF-382 PO; +MIRA25TA PO; -OLME1TAB20 PO; +ONDA4TAB14 PO; -ROSU40TA PO; +ROSU40TA35 PO; +SERT25TA83 PO; +SITA1TAB5 PO; -SITA50TA2 PO; +TRAM50TA2 PO; +VALS1TAB78 PO; -VALS80TA2 PO; -ZOLP10TA PO
[2018-06-12] MEDS ORDERED: CEFTRIAXONE 1 GM/50 ML (PMX) 50 ML IVPB STA (20:08)
[2018-06-12] MEDS ORDERED: ONDANSETRON 4 MG INJ IV PRN ×2 (20:30→23:30)
[2018-06-12] MEDS ORDERED: ACETAMINOPHEN 325 MG TAB PO PRN (20:30)
[2018-06-12 20:48] VITALS: Ht 165.1 cm; Wt 75.0 kg
--- NOTE | 2018-06-12 22:09 | ERD ---
ER Documentation Chief Complaint Chief Complaint BIBA from home c/o ALOC since 3pm HPI Patient is an 87-year-old female with Alzheimer's and hypertension who presents with altered mental status. Please note the history and physical exam is limited secondary to the patient's altered mental status. The patient was brought in by ambulance. She was more altered than usual per paramedics. She has a history of urinary tract infections in the past. Upon review of old medical records this is the patient's ninth visit to the ER since 2009. Her primary doctor is Dr. Flanagan. ROS All systems reviewed and are negative except as per history of present illness. Medications Home Meds Active Scripts Ondansetron (Ondansetron Odt) 4 Mg Tab.rapdis, 4 MG PO Q6H PRN for NAUSEA AND/OR VOMITING, #10 TAB Prov:VIOLETTA CUELLO MD 10/10/17 Tramadol HCl (Tramadol HCl) 50 Mg Tablet, 50 MG PO TID PRN for PAIN, #8 TAB Prov:VIOLETTA CUELLO MD 10/10/17 Reported Medications Diltiazem Hcl* (Cartia XT*) 120 Mg Cap.sr.24h, 120 MG PO DAILY, #30 CAP 10/10/17 Colchicine* (Colcrys*) 0.6 Mg Tablet, 0.6 MG PO BID, TAB 10/10/17 Lorazepam* (Lorazepam*) 0.5 Mg Tablet, 0.5 MG PO HS PRN for ANXIETY, TAB 10/10/17 Mirabegron (Mybetriq) 25 Mg Tab.er.24h, 25 MG PO DAILY, TAB 10/10/17 Qlsjax-Thszldnj-Bjwxyyb* (Venus EDWARD* 24,000) 24,000 L-76,000-120,000 Unit Capsule., 1 CAP PO WITH MEALS, CAP 10/10/17 Dexlansoprazole (Dexilant) 60 Mg Cap., 60 MG PO DAILY, #30 CAP 10/10/17 Sitagliptin Phos/Metformin HCl (Janumet 50-1,000 mg Tablet) 1 Each Tablet, 1 EACH PO BID, TAB 10/10/17 Aripiprazole* (Abilify*) 2 Mg Tablet, 2 MG PO DAILY, #30 TAB 10/10/17 Rosuvastatin Calcium* (Crestor*) 40 Mg Tablet, 40 MG PO QHS, #30 TAB 10/10/17 Ezetimibe* (Zetia*) 10 Mg Tablet, 10 MG PO HS, TAB 10/10/17 Valsartan-Hydrochlorothiazide (Valsartan-HCTZ) 160-25 Mg Tablet, 1 TAB PO DAILY, #30 TAB 10/10/17 Sertraline Hcl* (Sertraline Hcl*) 25 Mg Tablet, 25 MG PO DAILY, #30 TAB 10/10/17 Celecoxib* (Celebrex*) 200 Mg Capsule, 200 MG PO DAILY, CAP 10/10/17 Clopidogrel Bisulfate (Clopidogrel) 75 Mg Tablet, 75 MG PO DAILY, #30 TAB 10/10/17 Donepezil* (Aricept*) 10 Mg Tablet, 10 MG PO DAILY, TAB 10/10/17 Carvedilol* (Carvedilol*) 6.25 Mg Tablet, 6.25 MG PO BID, #60 TAB 10/10/17 Clonidine Hcl* (Clonidine Hcl*) 0.2 Mg Tablet, 0.2 MG PO Q8, TAB 10/10/17 Hydralazine Hcl* (Apresoline*) 50 Mg Tab, 50 MG PO TID, #90 TAB 10/10/17 Digoxin* (Digitek*) 125 Mcg Tablet, 0.125 MG PO DAILY, TAB 10/10/17 Allergies Allergies: Coded Allergies: No Known Drug Allergies (Verified Allergy, Mild, 10/10/17) PMhx/Soc Hx Cardiac Disorders: Yes (htn ) Hx Psychiatric Problems: Yes (depression) Hx Miscellaneous Medical Probl: Yes (CVA , ALZHEIMER DISEASE , A-FIB , H.OF FALL, OA ) FmHx Unable to obtain Physical Exam Vitals Vital Signs Date Temp Pulse Resp B/P (MAP) Pulse Ox O2 O2 Flow FiO2 Time Delivery Rate 06/12/18 98.0 73 20 152/76 97 Room Air 21:38 (101) 06/12/18 97.7 67 17 140/52 96 Room Air 20:59 (81) 06/12/18 97.7 68 16 141/44 96 20:48 (76) Physical Exam Const: No acute distress Head: Atraumatic Eyes: Normal Conjunctiva ENT: Normal External Ears, Nose and Mouth. Neck: Full range of motion. No meningismus. Resp: Clear to auscultation bilaterally Cardio: Regular rate and rhythm, no murmurs Abd: Soft, non tender, non distended. Normal bowel sounds Skin: No petechiae or rashes Back: No midline or flank tenderness Ext: No cyanosis, or edema Neur: Awake and alert Psych: Normal Mood and Affect Result Diagram: 06/12/18201106/12/182011 Results 24 hrs Laboratory Tests Test 06/12/18 20:12 06/12/18 20:17 White Blood Count 5.3 10^3/ul Red Blood Count 3.13 10^6/ul Hemoglobin 8.0 g/dl Hematocrit 26.5 % Mean Corpuscular Volume 84.7 fl Mean Corpuscular Hemoglobin 25.6 pg Mean Corpuscular Hemoglobin Concent 30.2 g/dl Red Cell Distribution Width 17.1 % Platelet Count 182 10^3/UL Mean Platelet Volume 11.3 fl Immature Granulocytes % 0.400 % Neutrophils % 56.7 % Lymphocytes % 29.3 % Monocytes % 8.3 % Eosinophils % 4.7 % Basophils % 0.6 % Nucleated Red Blood Cells % 0.0 /100WBC Immature Granulocytes # 0.020 10^3/ul Neutrophils # 3.0 10^3/ul Lymphocytes # 1.6 10^3/ul Monocytes # 0.4 10^3/ul Eosinophils # 0.3 10^3/ul Basophils # 0.0 10^3/ul Nucleated Red Blood Cells # 0.0 10^3/ul Prothrombin Time 14.9 Sec Prothrombin Time Ratio 1.2 INR International Normalized Ratio 1.16 Activated Partial Thromboplast Time 31.7 Sec Urine Color YELLOW Urine Clarity CLEAR Urine pH 5.0 Urine Specific [place] 1.012 Urine Ketones NEGATIVE mg/dL Urine Nitrite NEGATIVE mg/dL Urine Bilirubin NEGATIVE mg/dL Urine Urobilinogen NEGATIVE mg/dL Urine Leukocyte Esterase NEGATIVE Janelle/ul Urine Hemoglobin NEGATIVE mg/dL Urine Glucose NEGATIVE mg/dL Urine Total Protein NEGATIVE mg/dl Sodium Level 145 mmol/L Potassium Level 3.6 mmol/L Chloride Level 107 mmol/L Carbon Dioxide Level 31 mmol/L Anion Gap 7 Blood Urea Nitrogen 26 mg/dl Creatinine 0.88 mg/dl Est Glomerular Filtrat Rate mL/min mL/min Glucose Level 149 mg/dl Calcium Level 8.4 mg/dl Total Bilirubin 0.0 mg/dl Direct Bilirubin 0.00 mg/dl Indirect Bilirubin 0.0 mg/dl Aspartate Amino Transf (AST/SGOT) 12 IU/L Alanine Aminotransferase (ALT/SGPT) 17 IU/L Alkaline Phosphatase 103 IU/L Troponin I < 0.012 ng/ml Total Protein 6.2 g/dl Albumin 3.0 g/dl Globulin 3.20 g/dl Albumin/Globulin Ratio 0.93 POC Venous Lactate 1.3 mmol/L Current Medications Medications Dose Sig/Jacoby Start Time Status Last (Trade) Ordered Route PRN Stop Time Admin Dose Reason Admin Ceftriaxone 50 ml @ ONCE STAT 06/12/18 DC 06/12/18 Sodium 100 mls/hr IVPB 20:08 20:42 06/12/18 20:37 Ondansetron 4 mg BRIDGE ORDER 06/12/18 HCl (Zofran PRN IV 20:30 Inj) NAUSEA/VOMITI 06/13/18 20:29 NG 650 mg ER BRIDGE 06/12/18 Acetaminophen PRN PO 20:30 (Tylenol .MILD PAIN 06/13/18 20:29 Tab) 1-3 OR TEMP Procedures/MDM EKG read by me: Rate/Rhythm: Regular rate and rhythm at a normal rate Intervals: Normal Impression: No evidence of ischemia or arrhythmia Chest x-ray read by radiology. Patient is a 87-year-old female presents with acute encephalopathy. The patient Michele has underlying dementia. Patient was found to have anemia with a hemoglobin of 8.0 but does not need transfusion. Urinalysis did not show any sign of infection. Chest x-ray shows no pneumonia. Electrolytes were basically normal. The patient will be admitted to the care of Dr. Flanagan for acute encephalopathy. I believe this is likely toxic metabolic. I doubt sepsis at t his time. Departure Diagnosis: Primary Impression: Altered level of consciousness Additional Impression: Anemia Anemia type: unspecified type Qualified Codes: D64.9 - Anemia, unspecified Condition: ZAYRA Islas MD Jun 12, 2018 22:09
[2018-06-12 23:30] VITALS: BP 149/65; PULSE 75; RESP 17
[2018-06-12] MEDS ORDERED: traMADol 50 MG TAB PO PRN (23:30)
[2018-06-12] MEDS ORDERED: LORAZEPAM 0.5 MG TAB PO PRN (23:30)
[2018-06-13] MEDS ORDERED: DEXL30CA2 IV (00:03)
[2018-06-13] MEDS ORDERED: LEVO500T48 IV (00:03)
[2018-06-13] MEDS ORDERED: VALS160T20 PO (00:03)
--- NOTE | 2018-06-13 00:13 | HP ---
Date/Time of Note Date/Time of Note DATE: 06/13/18 TIME: 00:00 Assessment/Plan VTE Prophylaxis SCD applied (from Nsg): Yes SCD contraindicated: low risk/ambulating Pharmacological prophylaxis: other (Anemia.) Pharm contraindication: low risk/ambulating Lines/Catheters IV Catheter Type (from Nrsg): Peripheral IV Central line still needed: No Urinary Cath still in place: No Reason Cath still needed: urinary retention Assessment/Plan Assessment/Plan 1. UTI with the Hx of recurrent uti's -negative UA. Will repeat UA 1 more time 2. Altered level of consciousness confusion; starting from 2 PM yesterday .Alzheimer's disease advanced. 3. Major depression 4. Sleeplessness of weight psychotic features irritation aggressiveness and inability to control herself. 5. decubitus of the left hip area and sacral area 6. Hypomagnesemia 1.4-we will supplement. 7. Anemia of chronic disease- currently with the h/h =12/20 8. Ischemic heart disease angina history of [place] history of PTCA 9. Hypertension better controlled 10. Diarrhea with fecal incontinence-Discussed with dr. Sy for reevaluation. 11. Urinary incontinence 12. Unstable gait with recurrent episodes of fall, self injury, postconcussion syndrome; bedridden almost 2 months ;during the last 4-6 months with hospitalizations at least twice in the [facility] last time about 2-3 weeks ago under my care. 13. Dysphagia-according to her daughter she is feeding her mother and she coughs occasionally. 14. Osteoarthritis of multiple joints-severe osteoarthritis of multiple joints with complaints swelling and tightness of the right knee x-ray will be done 15. Status post cataractectomy 16. Severe hearing impairment 17. Paroxismal a.fibrillation with rapid ventricular rate-now better controlled 18.S/P hemicolectomy with appendectomy by HX due to of colonic cancer- last colonoscopy 2016 in [facility]. 19.Progressive weight loss (more than 70-80 lb in a year) 20.VDV;DVT? HX? 21.S/P falls and recent hospitalisations x [address] [facility] after the head trauma and injury of other parts of the body. 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 23.S/P PSVT converted to sinus rhythm [place] [facility] [place] 24.Cachexia 25.LEW and osteoporosis 26.Diarrhea due to of short bowel, other causes-C. difficile will be checked 27.Severe muscular weakness 28.Severe hearing impairment 29.Low Vit "D" level 30.LVH with diastolic dysfunction. 31. S/P Fx of the right hip; s/p orif. 26.PAD 27.Hx of CVA with right weakness 28.improved lipid and sugar levels after weight loss, during one year, with almost total control of blood sugar. 29.Multiple contractures of joints, mainly knees and hips. Incomplete data Cont'd Hospitalization Reason: Continue evaluation and management plan home or snf. Result Diagram: 06/12/18201106/12/182011 Results 24hrs Laboratory Tests Test 06/12/18 20:12 06/12/18 20:17 White Blood Count 5.3 Red Blood Count 3.13 L Hemoglobin 8.0 L Hematocrit 26.5 L Mean Corpuscular Volume 84.7 Mean Corpuscular Hemoglobin 25.6 L Mean Corpuscular Hemoglobin Concent 30.2 L Red Cell Distribution Width 17.1 H Platelet Count 182 Mean Platelet Volume 11.3 H Immature Granulocytes % 0.400 Neutrophils % 56.7 Lymphocytes % 29.3 Monocytes % 8.3 Eosinophils % 4.7 Basophils % 0.6 Nucleated Red Blood Cells % 0.0 Immature Granulocytes # 0.020 Neutrophils # 3.0 Lymphocytes # 1.6 Monocytes # 0.4 Eosinophils # 0.3 Basophils # 0.0 Nucleated Red Blood Cells # 0.0 Prothrombin Time 14.9 Prothrombin Time Ratio 1.2 INR International Normalized Ratio 1.16 Activated Partial Thromboplast Time 31.7 Urine Color YELLOW Urine Clarity CLEAR Urine pH 5.0 Urine Specific [place] 1.012 Urine Ketones NEGATIVE Urine Nitrite NEGATIVE Urine Bilirubin NEGATIVE Urine Urobilinogen NEGATIVE Urine Leukocyte Esterase NEGATIVE Urine Hemoglobin NEGATIVE Urine Glucose NEGATIVE Urine Total Protein NEGATIVE Sodium Level 145 H Potassium Level 3.6 Chloride Level 107 Carbon Dioxide Level 31 Anion Gap 7 Blood Urea Nitrogen 26 H Creatinine 0.88 Est Glomerular Filtrat Rate mL/min Glucose Level 149 Calcium Level 8.4 Total Bilirubin 0.0 L Direct Bilirubin 0.00 Indirect Bilirubin 0.0 Aspartate Amino Transf (AST/SGOT) 12 L Alanine Aminotransferase (ALT/SGPT) 17 Alkaline Phosphatase 103 Troponin I < 0.012 Total Protein 6.2 Albumin 3.0 L Globulin 3.20 Albumin/Globulin Ratio 0.93 POC Venous Lactate 1.3 HPI/ROS Admit Date/Time Admit Date/Time Jun 12, 2018 at 20:12 Hx of Present Illness History was taken mainly from the daughter of the patient patient her name is Faye. Had a conversation with the ER physician too. According to the daughter she was doing well yesterday until 2:00 PM when she felt her mother gave medications had a conversation. She was in her usual state of health. Later she received a call from torch cutter that mother is not responding appropriately and she had a large bowel movement with no melena or bleeding. The daughter went back to the [facility] and found the mother being in altered level of consciousness, not recognizing her, talking with her brother who is , and behaving not in a normal mother mother as she was doing before 2:00; paramedics were called and the patient was admitted to the [facility] emergency room. Initial workup was basically negative except for anemia and foul-smelling from the perineal area and according to the report of the emergency room cloudy urine. At the moment of my distention dictation and urine analysis is clear. According to daughter in the emergency room when patient received IV hydration daughter was able to fed her again and overall her condition had improved. At the time of my evaluation now the wilfredo ent is unable to communicate until the last admission in the [facility] 2-3 weeks ago she was recognizing me communicating with me at this time also she was talking about his rather and asking me to wait until we will go out together. Evident that she is not oriented neither time place or people. ROS Subjective hx not possible: pt non-verbal, other (Totally disoriented unable to communicate unable to get more information. According to the daughter she did not have fever and chills she did not have nausea vomiting. Actually she had a large bowel movement and she was having also urinary and fecal incontinence before. Her decubiti got bigger and there is unable to take care at home.) PMH/Family/Social Past Medical History Medical History: angina, congestive heart failure, coronary artery disease, diabetes, diverticulitis, GERD, GI bleed, high cholesterol, hypertension, irritable bowel syndrome, peptic ulcer disease, renal disease, urinary tract infection Medications Current Medications Ondansetron HCl (Zofran Inj) 4 mg BRIDGE ORDER PRN IV NAUSEA/VOMITING; Start 06/12/18 at 20:30; Stop 06/13/18 at 20:29 Acetaminophen (Tylenol Tab) 650 mg ER BRIDGE PRN PO .MILD PAIN 1-3 OR TEMP; Start 06/12/18 at 20:30; Stop 06/13/18 at 20:29 Coded Allergies: No Known Drug Allergies (Verified Allergy, Mild, 10/10/17) Past Surgical History Past Surgical Hx: angioplasty, appendectomy, other (Status post amputation hemicolectomy secondary to colon cancer.) Family History Significant Family History: heart disease, hypertension Social History Alcohol Use: none Smoking Status: Never smoker Drug Use: none Exam/Review of Systems Vital Signs Vitals Vital Signs Date Temp Pulse Resp B/P (MAP) Pulse Ox O2 O2 Flow FiO2 Time Delivery Rate 06/12/18 65 18 139/66 100 Room Air 2.0 22:14 (90) 06/12/18 98.0 21:38 Exam Constitutional: alert, well developed, distress, other (Malnourished total loss of touch with reality after multiple attempts to able to communicate she is crying.) Psych: anxiety, confusion, depression; No no complaints, No nl mood/affect, No suicidal, No other Head: normocephalic, atraumatic, other (No signs of abuse.); No lacerations, No hematomas Eyes: EOMI, nl lids, PERRL, other (Right ptosis with paleness of both conjunctiva.) ENMT: nl external ears & nose, nl nasal mucosa & septum, tympanic membranes; No nl lips & teeth, No mucosa pink and moist, No intubated, No other Neck: bruits, nuchal rigidity; No supple, No non-tender, No jvd, No masses, No thyromegaly, No other Respiratory: clear to auscultation, normal air movement, diminished breath sounds; No congested cough, No crackles/rales, No intercostal retraction, No labored breathing, No respirations, No tactile fremitus, No wheezing, No other Cardiovascular: regular rate and rhythm, nl pulses, systolic murmur; No bruits, No diastolic murmur, No edema, No gallop, No irregular rhythm, No jugular venous distention (JVD), No murmurs/extra sounds, No rub, No S3, No S4, No other Gastrointestinal: soft, nl liver, spleen, non-tender, bowel sounds, surgical scars (Midline well-healed no evidence of hernia.); No ascites, No distended, No firm, No hepatomegaly, No mass, No rebound or guarding, No splenomegaly, No tender, No other Genitourinary - Female: nl adnexae, nl external genitalia; No CMT, No CVA tenderness, No uterus, No other Musculoskeletal: joint tenderness (Right knee joint is hot round with fluid detectable. Left knee with no similar changes. Stiffness and contractures of both knees right more than left also stiffness of bilateral. Hips flexed position. Severe muscular atrophy), muscle tone, muscle weakness, range of mo tion, other (..In all muscular groups with severe decrease of the toenails and mass comparing my previous visit she lost more weight according to the daughter totally she lost about 70-80 pounds of weight from 225 pounds about a year ago); No nl extremities to inspection, No nl gait and stance, No spine non-tender, No swelling Extremities: normal pulses; No calf tenderness, No cyanosis, No clubbing, No edema, No pitting pedal edema, No palpable cord, No tenderness, No other Neurological: confused; No THEATER MANAGER II-XII intact, No nl mental status, No nl speech, No nl strength, No DTR's symmetric, No focal weakness, No lethargic, No numbness, No reflexes, No unresponsive, No other Skin: nl turgor (Decreased.); No rash or lesions, No diaphoresis, No ecchymosis, No laceration, No puncture, No other Lymph: No nl lymph nodes, No enlarged, No nontender, No other VANI DALAL MD Jun 13, 2018 00:12
[2018-06-13] MEDS ORDERED: ACETAMINOPHEN 325 MG TAB PO PRN (00:30)
[2018-06-13] MEDS ORDERED: PENDING SANTYL ORDER FOR WOUND CARE XX PRN (00:30)
[2018-06-13] MEDS: DEXTROSE 5%-0.45% NACL 1,000 ML IV SCH ×2 (00:54→21:28)
[2018-06-13] MEDS: LEVOFLOXACIN 500MG/D5W (PMX) 100 ML IVPB SCH (00:54)
[2018-06-13] MEDS ORDERED: CLONIDINE 0.2 MG/24 HR PATCH TRANSDERM SCH (01:00)
[2018-06-13 02:00] VITALS: BP 167/79; PULSE 74; RESP 18
[2018-06-13 07:47] VITALS: BP 137/78; PULSE 67; RESP 16
[2018-06-13 07:52] VITALS: BP 187/88; PULSE 84; RESP 18
[2018-06-13] MEDS: CREON (24K-76K-120K) 1 CAP PO SCH ×3 (08:44→20:06)
[2018-06-13] MEDS: PANTOPRAZOLE 40 MG INJ IV SCH (08:45)
[2018-06-13] MEDS: LOSARTAN 50 MG TAB PO SCH (08:46)
[2018-06-13] MEDS: DILTIAZEM (CD) 120 MG CAP PO SCH (08:47)
[2018-06-13] MEDS: DONEPEZIL 10 MG TAB PO SCH (08:47)
[2018-06-13] MEDS: ACCU-CHEK XX SCH ×2 (08:52→21:33)
[2018-06-13] MEDS: CLOPIDOGREL 75 MG TAB PO SCH (08:52)
[2018-06-13] MEDS ORDERED: ARIPIPRAZOLE 2 MG TAB PO SCH (09:00)
[2018-06-13] MEDS ORDERED: SERTRALINE 50 MG TAB PO SCH (09:00)
[2018-06-13] MEDS ORDERED: NON-FORMULARY/PATIENT OWN MED (Mirabegron (Mybetriq) 25 MG) PO SCH (09:00)
--- NOTE | 2018-06-13 10:36 | CONDCODE ---
Medicare Criteria-> INP to OBS Patient still in hospital: Yes SI/IS Criteria met: Yes Attending MD agrees w/change: Yes Order entered in Pt. record: Yes Pt. does not meet Inp Criteria: Yes Medicare Inp->Obs Criteria met: Yes UR Phys Advisor eSign required: Yes I personally scribed for VANI DALAL MD ([email or web address]) on 06/13/18 at 10:36. Electronically submitted by Alexandro Kolb [facility] ([email or web address]). VANI DALAL MD Jun 13, 2018 10:36
--- NOTE | 2018-06-13 10:36 | CONDCODE ---
Medicare Criteria-> INP to OBS Patient still in hospital: Yes SI/IS Criteria met: Yes Attending MD agrees w/change: Yes Order entered in Pt. record: Yes Pt. does not meet Inp Criteria: Yes Medicare Inp->Obs Criteria met: Yes UR Phys Advisor eSign required: Yes I personally scribed for INDERJIT BALTAZAR MD ([email or web address]) on 06/13/18 at 10:36. Electronically submitted by Alexandro Kolb [facility] ([email or web address]). INDERJIT BALTAZAR MD Jun 13, 2018 10:36
[2018-06-13] MEDS: DIGOXIN 0.125 MG TAB PO SCH (13:32)
[2018-06-13 14:58] VITALS: BP 177/75; PULSE 68; RESP 16
[2018-06-13] MEDS: MAGNESIUM SULFATE 2 GM/50 ML 50 ML IVPB SCH (16:05)
[2018-06-13 20:00] VITALS: BP 150/64; PULSE 74; RESP 18
[2018-06-13] MEDS ORDERED: EZETIMIBE 10 MG TAB PO SCH (21:00)
[2018-06-14] MEDS: LEVOFLOXACIN 500MG/D5W (PMX) 100 ML IVPB SCH (01:13)
[2018-06-14 02:04] VITALS: BP 129/59; PULSE 66; RESP 20
[2018-06-14] MEDS: PANTOPRAZOLE 40 MG INJ IV SCH (05:14)
[2018-06-14 08:03] VITALS: BP 138/81; PULSE 76; RESP 18
[2018-06-14] MEDS: DONEPEZIL 10 MG TAB PO SCH (09:00)
[2018-06-14] MEDS ORDERED: ASCORBIC ACID 500 MG TAB PO SCH (09:00)
[2018-06-14] MEDS ORDERED: ZINC SULFATE 220 MG CAP PO SCH (09:00)
[2018-06-14] MEDS: CREON (24K-76K-120K) 1 CAP PO SCH ×2 (09:45→13:25)
[2018-06-14] MEDS: CLOPIDOGREL 75 MG TAB PO SCH (09:45)
[2018-06-14] MEDS: LOSARTAN 50 MG TAB PO SCH (09:46)
[2018-06-14] MEDS: DILTIAZEM (CD) 120 MG CAP PO SCH (09:46)
[2018-06-14] MEDS: ACCU-CHEK XX SCH (09:47)
[2018-06-14] MEDS: MAGNESIUM SULFATE 2 GM/50 ML 50 ML IVPB SCH (09:47)
[2018-06-14] MEDS: DIGOXIN 0.125 MG TAB PO SCH (13:26)
[2018-06-14 14:22] VITALS: BP 142/80; PULSE 83; RESP 16
[2018-06-14] MEDS ORDERED: MIRABEGRON 25 MG XX SCH (15:00)
[2018-06-14] MEDS ORDERED: [UNRECOGNIZED DRUG - OTHER] XX SCH (15:00)
--- NOTE | 2018-06-14 18:25 | CONS ---
DATE OF ADMISSION: 06/12/2018 DATE OF CONSULTATION: 06/14/2018 TYPE OF CONSULTATION: Surgical. REQUESTING PHYSICIAN: Vani Flanagan MD REASON FOR CONSULTATION: To evaluate the patient for pressure sores on the sacrococcygeal area and t he trochanteric area on both sides. Thank you dear Dr. Flanagan for consultation. I saw the patient and evaluated the patient on behalf of Dr. Jurado because I am covering Dr. Jurado. HISTORY OF PRESENT ILLNESS: As you know, this patient who is 87-year-old female has Alzheimer's dise ase and hypertension, was brought to the emergency room as the family has found that the patient has altered mental status. The patient was brought to the emergency room by ambulance. In the past, the re has a history of urinary tract infection. As I have mentioned, this is the patient's ninth visit to the emergency room since 2009. After being admitted for evaluation of altered mental status, it w as found that the patient has some changes in the trochanteric areas on hip areas and also some sacro coccygeal area; therefore, surgical consultation was requested. Today when I am examining and seeing the patient, the patient's daughter was available on the bedside and she stated that she takes care of her mom at home and she has been able to walk up to about a month ago since it was after a month a go she was admitted somewhere in the hospital and since then, she has not been able to walk at all; o therwise, she has been walking with a walker and she has been doing anything by herself. ALLERGIES: NO KNOWN ALLERGIES. PAST MEDICAL HISTORY: I used the past medical history written by Dr. Flanagan in complete detail. PAST SURGICAL HISTORY: She has had some kind of operation of the right hip probably total hip replac ement many years ago and she has had cancer of colon operation in [facility] about 20 years ago. MEDICATIONS: The patient is on a long list of medication. Please refer to the reconciliation list d ocumented in the computer. PHYSICAL EXAMINATION: GENERAL: The patient awake, is not well oriented but is not in acute distress. She does not speak E nglish, but she speaks Persian and daughter asked her questions and she answers to her daughter but is not that oriented. VITAL SIGNS: Temperature maximum 98.8, heart rate 76, respiration 18, blood pressure 138/81, saturat ion 95% room air. HEENT: Head is normocephalic. NECK: Soft. Trachea is in midline. No carotid bruit. HEART: Regular rhythm. Occasional extra beats available. It could be PACs or it could be PVCs. LUNGS: Clear. ABDOMEN: Not distended. It is quite soft. Bowel sound is present. GENITOURINARY: The patient apparently is not in control of urine and feces, so the bed is wet due to patient's urination. EXTREMITIES: The left lower extremity is stretched and the patient can move it. Right lower extremi ty, there is severe flexion at the hip and at the knee and almost contracture. The patient's laya r says that this has been ongoing for about a month. Heels: There is no evidence of bed sore. Hip area: There is a scar of previous operation anterior of the right hip. Over the greater trochanter on the right side and on the left side, there is a slight amount of deep tissue injury sign, but ther e is no evidence of ulcer at this time. The patient was rotated to the side and sacrococcygeal area was examined. There is probably a stage I decubitus ulcer over there. LABORATORY DATA: WBC 7300 with 68% segmented, hemoglobin 8.4, hematocrit 27.8 (the reason of cause o f her anemia is not clear to me at this time). Chemistry: Sodium yesterday 146, potassium 3.9, BUN 21, creatinine 0.92. Iron is 44, TIBC 210 which is low and percent saturation is 21 which is low. IMAGING: Chest x-ray: No pneumonia or heart failure. There is some cardiomegaly reported on chest x-ray on 06/12/2018. X-ray of the knee on the right side was done on 06/13/2018. The report shows n o fracture or dislocation, moderate to marked tricompartmental osteoarthritic, degenerative changes a nd a small suprapatellar joint effusion has been reported. Abdominal x-ray showed no radiographic ev idence of a small-bowel obstruction and fecal impaction of the rectum is present. Brain CT scan also was performed for evaluation of intracranial pathologies. Impression: 1. No intracranial hemorrhage or acute intracranial abnormality seen. 2. Moderate chronic microvascular ischemic changes and generalized volume loss. 3. Atherosclerotic calcifications of the internal carotid and vertebral artery are seen. 4. MRI may be considered for further evaluation as clinically warranted. IMPRESSION: She is an 87-year-old female who was transferred from home and was admitted with the imp ression of altered mental status. The patient has a long list of medical problems which very nicely has been mention on Dr. Flanagan's history and physical exam via the surgical team was seeing the pa corbinnt for evaluation of the pressure sore ulcers and as was mentioned, patient has evidence of mild d eep tissue injury on both trochanteric areas on the right and left #2, some evidence of deep tissue i njury and probably stage I decubitus ulcer on the sacrococcygeal area. It was recommended that the p ressure areas namely trochanters, sacrococcygeal and heels of the feet be kept offload and by lior jo the position of the patient from [id number] every 2 hours and the patient's daughter said that e has been doing this at home all the time and also to pad the heels to prevent ulcer formation over those areas due to continuous contact with the mattress. The reason the patient is not able to walk is not clear to me and of course the patient has presented and according to the patient's daughter th at the patient has not been able to walk since about a month ago or so appears that we should expect in future bedsore formation, infected sacrococcygeal and possibly bilateral trochanteric area. This problem was emphasized to the patient's daughter who is the only person who takes care of her at home and she is quite aware of this fact and she is going to take the maximum care to prevent her mother from forming bedsores. At this time in the hospital, we are only recommending padding the area of th e pressure and also offloading or changing the position every 2 hours. Thank you for consultation. We will continue to follow. Dictated By: RAN RAMOS MD PS/NTS Conf#: [id number] DID#: [id number] CC: ASHLEY EVANS MD; VANI FLANAGAN MD;*EndCC*
--- NOTE | 2018-06-14 21:06 | PDOCDIS ---
Discharge Instructions DIAGNOSIS Discharge Diagnosis 1. Altered level of consciousness confusion; starting from 2 PM yesterday .Alzheimer's disease advanced.improved significantly, according to the daughter. She was able to communicate with the family members after hospitalization and mainly after hydration and started to eat. 2. UTI with the Hx of recurrent uti's -negative UA. low probability uti. 3. Major depression 4. Sleeplessness of weight psychotic features irritation aggressiveness and inability to control herself. 5. decubitus of the left hip area and sacral area 6. Hypomagnesemia 1.4-we will supplement. 7. Anemia of chronic disease- currently with the h/h =12/20 8. Ischemic heart disease angina history of [place] history of PTCA 9. Hypertension better controlled 10. Diarrhea with fecal incontinence-Discussed with dr. Sy for reevaluation. 11. Urinary incontinence 12. Unstable gait with recurrent episodes of fall, self injury, postconcussion syndrome; bedridden almost 2 months ;during the last 4-6 months with hospitalizations at least twice in the [facility] last time about 2-3 weeks ago under my care. 13. Dysphagia-according to her daughter she is feeding her mother and she coughs occasionally. 14. Osteoarthritis of multiple joints-severe osteoarthritis of multiple joints with complaints swelling and tightness of the right knee x-ray will be done 15. Status post cataractectomy 16. Severe hearing impairment 17. Paroxismal a.fibrillation with rapid ventricular rate-now better controlled 18.S/P hemicolectomy with appendectomy by HX due to of colonic cancer- last colonoscopy 2016 in [facility]. 19.Progressive weight loss (more than 70-80 lb in a year) 20.VDV;DVT? HX? 21.S/P falls and recent hospitalizations x 2 in [facility] after the head trauma and injury of other parts of the body. 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 23.S/P PSVT converted to sinus rhythm by adenosine in [facility] [place]? 24.Cachexia 25.LEW and osteoporosis 26.Diarrhea due to of short bowel, other causes-C. difficile will be checked 27.Severe muscular weakness 28.Severe hearing impairment 29.Low Vit "D" level 30.LVH with diastolic dysfunction. 31. S/P Fx of the right hip; s/p orif. 26.PAD 27.Hx of CVA with right weakness 28.improved lipid and sugar levels after weight loss, during one year, with almost total control of blood sugar. 29.Multiple contractures of joints, mainly knees and hips. CONDITION [id number] Patient Condition: [id number] Critical HOME CARE INSTRUCTIONS: Fmbig0Qr Diet Instructions: [id number] y Neazm0Qr Bathing Restrictions: [id number] Tub Bath FOLLOW UP/APPOINTMENTS Follow-up Plan home visit in 3-4 days. SCHOOL/WORK RELEASE May return to School/Work on: Jun 14, 2018 May return to School/Work with: VANI Voss MD Jun 14, 2018 21:06
[2018-06-15] MEDS ORDERED: PANTOPRAZOLE (EC) 40 MG TAB PO SCH (06:00)
[2018-06-15] MEDS ORDERED: LEVOFLOXACIN 500 MG TAB PO SCH (06:00)
== END 2018-06-14 17:40 | disposition home or self-care (01) ==
LOC: E/R 20:03 → INTOOBSV 20:12 → PP2 20:12 → CMPBEDREQ 20:49
PROVIDERS: ADMIT Family Medicine; ATTEND Family Medicine
DX: N39.0 Urinary tract infection, site not specified (principal); R40.4 Transient alteration of awareness; R41.0 Disorientation, unspecified; F32.9 Major depressive disorder, single episode, unspecified; L89.229 Pressure ulcer of left hip, unspecified stage; L89.159 Pressure ulcer of sacral region, unspecified stage; E83.42 Hypomagnesemia; D63.8 Anemia in other chronic diseases classified elsewhere; I25.10 Atherosclerotic heart disease of native coronary artery without angina pectoris; I10 Essential (primary) hypertension; G30.9 Alzheimer's disease, unspecified; F02.80 Dementia in other diseases classified elsewhere, unspecified severity, without behavioral disturbance, psychotic disturbance, mood disturbance, and anxiety; Z86.73 Personal history of transient ischemic attack (TIA), and cerebral infarction without residual deficits; I48.91 Unspecified atrial fibrillation; M19.90 Unspecified osteoarthritis, unspecified site; Z23 Encounter for immunization
CPT/HCPCS: 36415; 70450; 71045; 73560; 74018; 80048; 80053; 80162; 80307; 81003; 82962; 83540; 83605; 83735; 84443; 84484; 85025; 85610; 85730; 87040; 87045; 87086; 90686; 93005; 99285; A4310; C9113; G0378; J0696; J1956; J3475; J7042; 99217